=== PATIENT | female | born 1955 | race Caucasian/White ===

== ENCOUNTER 2021-09-26 15:21 | Inpatient (IN) | payer OTHER, MEDICAID ==
[~2021-09-26] VITALS: Ht 157.5 cm; Wt 61.7 kg
[2021-09-26 16:18] LABS: Basophils # (auto) 0 10 ^3/uL (0-0.2); Eosinophils # (auto) 0 10 ^3/uL (0-0.8); Lymphocytes # (auto) 0.8 10 ^3/uL (0.4-5.4); Monocytes # (auto) 0.5 10 ^3/uL (0-1.3); Red Cell Distribution Width 14.4 % (11.8-14.3)
[2021-09-26 16:19] LABS: Basophils % (auto) 0.5 % (0.0-2.0); Eosinophils % (auto) 0.7 % (0.0-7.0); Lymphocytes % (auto) 13.6 % (10.0-50.0); Mean Corpuscular Hemoglobin 32.4 pg (28.0-32.0); Mean Corpuscular Hgb Conc. 32.8 g/dL (32.0-36.0); Mean Corpuscular Volume 98.8 fL (80.0-100.0); Monocytes % (auto) 8.5 % (0.0-12.0); Neutrophils # (auto) 4.7 10 ^3/uL (1.6-8.6); Neutrophils % (auto) 76.7 % (37.0-80.0); Red Blood Cells 6.51 10^6/uL (4.0-5.20); White Blood Cell 6.1 10^3/uL (4.4-10.8)
[2021-09-26 16:21] LABS: Hematocrit 64.3 % (36.0-46.0)
[2021-09-26 16:39] LABS: Albumin 3.6 g/dL (3.4-5.0); Calcium 8.8 mg/dL (8.5-10.1); Hemoglobin 21.1 g/dL (12.2-16.2); Magnesium 2.6 mg/dL (1.6-2.6); Potassium 4.5 mmol/L (3.5-5.1)
[2021-09-26 16:47] LABS: Lactic Acid w/Reflex 2.8 mmol/L (0.4-2.0)
[2021-09-26 16:48] LABS: BUN/Creatinine Ratio 25.9; Bilirubin, Total 0.4 mg/dL (0.2-1.0); Total Protein 7.2 g/dL (6.4-8.2)
[2021-09-26] MEDS ORDERED: ALBUTEROL SULF 2.5 MG/0.5ML(0.5%) NEB SOLN NEB ONE (17:00)
[2021-09-26] MEDS ORDERED: methylPREDNISolone SOD SUCC 125 MG/2 ML VL IV ONE (17:00)
[2021-09-26] MEDS ORDERED: IPRATROPIUM BROM 0.5 MG/2.5ML INH SOL NEB ONE (17:00)
[2021-09-26] MEDS: MAGNESIUM SULFATE 1GM/100ML 100 ML IV SCH ×2 (17:17→18:11)
[2021-09-26 19:34] LABS: Basophils # (auto) 0 10 ^3/uL (0-0.2); Eosinophils # (auto) 0 10 ^3/uL (0-0.8); Eosinophils % (auto) 0.1 % (0.0-7.0); Lymphocytes # (auto) 0.5 10 ^3/uL (0.4-5.4); Red Blood Cells 6.27 10^6/uL (4.0-5.20); White Blood Cell 9.2 10^3/uL (4.4-10.8)
[2021-09-26 19:37] LABS: Basophils % (auto) 0.1 % (0.0-2.0); Hemoglobin 20.4 g/dL (12.2-16.2); Lymphocytes % (auto) 5.3 % (10.0-50.0); Mean Corpuscular Hemoglobin 32.6 pg (28.0-32.0); Mean Corpuscular Hgb Conc. 32.9 g/dL (32.0-36.0); Monocytes # (auto) 0.5 10 ^3/uL (0-1.3); Monocytes % (auto) 5.9 % (0.0-12.0); Neutrophils # (auto) 8.2 10 ^3/uL (1.6-8.6); Neutrophils % (auto) 88.6 % (37.0-80.0); Nucleated Red Blood Cells % 0.5 %; Red Cell Distribution Width 14.1 % (11.8-14.3)
[2021-09-26 19:47] LABS: Hematocrit 62.1 % (36.0-46.0)
[2021-09-26 19:55] LABS: INR 1.19 (0.9-1.15); Partial Thromboplastin Time 27.9 sec (23.6-33.0)
[2021-09-26 20:09] LABS: Urine Bacteria MOD /hpf (None Seen); Urine Blood Negative /uL (Negative); Urine Specific Gravity 1.017 (1.001-1.035); Urine WBC 16 /hpf (0 - 5)
[2021-09-26] MEDS ORDERED: IOHEXOL 350 MG/ML 100ML IJ ONE (20:28)
[2021-09-26] MEDS ORDERED: AZITHROMYCIN 250 MG TAB PO ONE (22:30)
[2021-09-26] MEDS ORDERED: SODIUM CHLORIDE 0.9% 1,000 ML IV SCH (22:30)
[2021-09-26] MEDS ORDERED: DOCUSATE SOD 100 MG CAP PO PRN (22:30)
[2021-09-26] MEDS ORDERED: ENOXAPARIN SOD 60 MG/0.6 ML SYRINGE SC ONE (22:30)
[2021-09-26] MEDS ORDERED: IPRATROPIUM BROM 0.5 MG/2.5ML INH SOL NEB PRN (22:30)
[2021-09-26] MEDS ORDERED: ONDANSETRON HCL 4 MG/2 ML VIAL IV PRN (22:30)
[2021-09-26] MEDS ORDERED: ALBUTEROL SULF 2.5 MG/0.5ML(0.5%) NEB SOLN NEB PRN (22:30)
[2021-09-26] MEDS ORDERED: ACETAMINOPHEN 325 MG TAB PO PRN (22:30)
[2021-09-26 22:54] VITALS: BP 128/70
[2021-09-26 23:00] LABS: % Iron Saturation 31.7 % (15-50)
[2021-09-26 23:02] LABS: Amphetamine Screen, Urine NEGATIVE (NEGATIVE); Barbiturate Scree,Urine NEGATIVE (NEGATIVE); Benzodiazephine Screen, Urine NEGATIVE (NEGATIVE); Cannabinoid Screen, Urine NEGATIVE (NEGATIVE); Cocaine Screen, Urine POSITIVE (NEGATIVE); Opiate Scree,Urine NEGATIVE (NEGATIVE); Phencyclidine Screen, Urine NEGATIVE (NEGATIVE)
[2021-09-26] MEDS: methylPREDNISolone SOD SUCC 125 MG/2 ML VL IV SCH (23:49)
[2021-09-27] VITALS (7 sets, daily range): BP systolic 105–132; BP diastolic 56–85
[2021-09-27] MEDS ORDERED: TIOT17SP INH (01:51)
[2021-09-27] MEDS ORDERED: BUDE1AER4 INH (01:51)
[2021-09-27] MEDS ORDERED: MONT-8 PO (01:51)
[2021-09-27] MEDS ORDERED: ALBU108A5 INH (01:51)
[2021-09-27] MEDS: methylPREDNISolone SOD SUCC 125 MG/2 ML VL IV SCH ×3 (05:55→19:17)
[2021-09-27] MEDS: IPRATROPIUM BROM 0.5 MG/2.5ML INH SOL NEB SCH ×5 (06:00→22:19)
[2021-09-27] MEDS: ALBUTEROL SULF 2.5 MG/0.5ML(0.5%) NEB SOLN NEB SCH ×5 (06:00→22:19)
[2021-09-27 06:21] LABS: Basophils # (auto) 0 10 ^3/uL (0-0.2); Eosinophils # (auto) 0 10 ^3/uL (0-0.8); Hemoglobin 18.9 g/dL (12.2-16.2); Neutrophils # (auto) 4.4 10 ^3/uL (1.6-8.6); White Blood Cell 4.8 10^3/uL (4.4-10.8)
[2021-09-27 06:25] LABS: Basophils % (auto) 0.3 % (0.0-2.0); Lymphocytes # (auto) 0.4 10 ^3/uL (0.4-5.4); Lymphocytes % (auto) 7.3 % (10.0-50.0); Mean Corpuscular Hgb Conc. 33.6 g/dL (32.0-36.0); Mean Corpuscular Volume 98.1 fL (80.0-100.0); Monocytes # (auto) 0 10 ^3/uL (0-1.3); Monocytes % (auto) 0.9 % (0.0-12.0); Neutrophils % (auto) 91.5 % (37.0-80.0); Nucleated Red Blood Cells % 0.2 %; Red Blood Cells 5.72 10^6/uL (4.0-5.20); Red Cell Distribution Width 14.1 % (11.8-14.3)
[2021-09-27 06:32] LABS: Hematocrit 56.2 % (36.0-46.0)
[2021-09-27 06:33] LABS: Potassium 4.8 mmol/L (3.5-5.1)
[2021-09-27 06:45] LABS: Albumin 3.1 g/dL (3.4-5.0); BUN/Creatinine Ratio 22.1; Bilirubin, Total 0.2 mg/dL (0.2-1.0); Calcium 8.3 mg/dL (8.5-10.1); Total Protein 6.2 g/dL (6.4-8.2)
[2021-09-27] MEDS ORDERED: FAMOTIDINE 20 MG TAB PO SCH (10:00)
[2021-09-27] MEDS: AZITHROMYCIN 250 MG TAB PO SCH (10:43)
[2021-09-27] MEDS: ENOXAPARIN SOD 40 MG/0.4 ML SYRINGE SC SCH (10:47)
[2021-09-27] MEDS ORDERED: ASPirin 81 mg TAB PO ONE (15:00)
[2021-09-28] VITALS (10 sets, daily range): BP systolic 97–147; BP diastolic 52–85
[2021-09-28] MEDS: methylPREDNISolone SOD SUCC 125 MG/2 ML VL IV SCH ×2 (00:52→05:33)
[2021-09-28] MEDS ORDERED: hydrOXYzine HCL 10 MG TAB PO ONE (03:45)
[2021-09-28 06:13] LABS: Basophils # (auto) 0 10 ^3/uL (0-0.2); Eosinophils # (auto) 0 10 ^3/uL (0-0.8); Monocytes # (auto) 0.3 10 ^3/uL (0-1.3); Monocytes % (auto) 4.6 % (0.0-12.0); Neutrophils # (auto) 5.7 10 ^3/uL (1.6-8.6); White Blood Cell 6.4 10^3/uL (4.4-10.8)
[2021-09-28 06:15] LABS: Basophils % (auto) 0.3 % (0.0-2.0); Hemoglobin 18.7 g/dL (12.2-16.2); Lymphocytes # (auto) 0.4 10 ^3/uL (0.4-5.4); Lymphocytes % (auto) 5.7 % (10.0-50.0); Mean Corpuscular Hgb Conc. 33.4 g/dL (32.0-36.0); Mean Corpuscular Volume 98.6 fL (80.0-100.0); Neutrophils % (auto) 89.4 % (37.0-80.0); Nucleated Red Blood Cells % 0.3 %; Red Blood Cells 5.68 10^6/uL (4.0-5.20); Red Cell Distribution Width 14.1 % (11.8-14.3)
[2021-09-28] MEDS: IPRATROPIUM BROM 0.5 MG/2.5ML INH SOL NEB SCH ×3 (06:32→18:21)
[2021-09-28] MEDS: ALBUTEROL SULF 2.5 MG/0.5ML(0.5%) NEB SOLN NEB SCH ×3 (06:32→18:21)
[2021-09-28 06:37] LABS: Calcium 9.1 mg/dL (8.5-10.1); Magnesium 2.7 mg/dL (1.6-2.6); Phosphorus 2.8 mg/dL (2.5-4.90); Potassium 5.2 mmol/L (3.5-5.1)
[2021-09-28] MEDS: AZITHROMYCIN 250 MG TAB PO SCH (09:36)
[2021-09-28] MEDS: ENOXAPARIN SOD 40 MG/0.4 ML SYRINGE SC SCH (09:36)
[2021-09-28] MEDS: ASPirin 81 mg TAB PO SCH (09:37)
[2021-09-28] MEDS ORDERED: GADOTERATE MEG 10 MMOL/20ml INJ (0.5MMOL/ml) IV ONE (09:49)
[2021-09-28] MEDS ORDERED: predniSONE 20 MG TAB PO ONE (13:30)
[2021-09-28] MEDS ORDERED: FUROSEMIDE 20 MG/2 ML VIAL IV ONE (13:30)
[2021-09-28] MEDS ORDERED: IPRATROPIUM BROM 0.5 MG/2.5ML INH SOL NEB SCH (14:00)
[2021-09-28] MEDS: DOXYCYCLINE 100 MG TAB/CAP PO SCH (21:06)
[2021-09-29] MEDS: IPRATROPIUM BROM 0.5 MG/2.5ML INH SOL NEB SCH ×3 (00:10→10:37)
[2021-09-29] MEDS: ALBUTEROL SULF 2.5 MG/0.5ML(0.5%) NEB SOLN NEB SCH ×3 (00:10→10:37)
[2021-09-29 04:35] LABS: Basophils # (auto) 0 10 ^3/uL (0-0.2); Basophils % (auto) 0.3 % (0.0-2.0); Eosinophils # (auto) 0 10 ^3/uL (0-0.8); Neutrophils # (auto) 6.1 10 ^3/uL (1.6-8.6); Nucleated Red Blood Cells % 0.2 %
[2021-09-29 04:38] LABS: Hemoglobin 18.8 g/dL (12.2-16.2); Lymphocytes # (auto) 0.8 10 ^3/uL (0.4-5.4); Mean Corpuscular Hemoglobin 32.6 pg (28.0-32.0); Mean Corpuscular Hgb Conc. 33.4 g/dL (32.0-36.0); Mean Corpuscular Volume 97.9 fL (80.0-100.0); Monocytes % (auto) 12.7 % (0.0-12.0); Red Blood Cells 5.77 10^6/uL (4.0-5.20); Red Cell Distribution Width 14.2 % (11.8-14.3); White Blood Cell 7.9 10^3/uL (4.4-10.8)
[2021-09-29 04:42] LABS: Hematocrit 56.5 % (36.0-46.0)
[2021-09-29 04:52] LABS: Calcium 9.2 mg/dL (8.5-10.1); Potassium 4.2 mmol/L (3.5-5.1)
[2021-09-29 04:56] LABS: BUN/Creatinine Ratio 43.1
[2021-09-29 05:00] VITALS: BP 113/68
[2021-09-29 08:41] VITALS: BP 118/74
[2021-09-29] MEDS: DOXYCYCLINE 100 MG TAB/CAP PO SCH (08:58)
[2021-09-29] MEDS: ASPirin 81 mg TAB PO SCH (08:59)
[2021-09-29] MEDS: ENOXAPARIN SOD 40 MG/0.4 ML SYRINGE SC SCH (09:01)
[2021-09-29] MEDS ORDERED: predniSONE 20 MG TAB PO SCH (10:00)
[2021-09-29] MEDS ORDERED: FUROSEMIDE 20 MG/2 ML VIAL IV SCH (10:00)
[2021-09-29 12:43] VITALS: BP 101/57
[2021-09-29] MEDS ORDERED: ASPI1CHW15 PO (13:24)
[2021-09-29] MEDS ORDERED: DOX100T PO (13:24)
[2021-09-29] MEDS ORDERED: PRED20TA2 PO (13:25)
[2021-09-29 14:10] VITALS: BP 118/74
== END 2021-09-29 16:00 | disposition home health service (06) | DRG 189 ==
LOC: ER 15:21 → EDBD 15:21 → TELE 22:27 → TELE-WESTW 23:51
PROVIDERS: ADMIT Internal Medicine; ATTEND Internal Medicine
DX: J96.22 Acute and chronic respiratory failure with hypercapnia (principal); J44.1 Chronic obstructive pulmonary disease with (acute) exacerbation; J96.21 Acute and chronic respiratory failure with hypoxia; D75.1 Secondary polycythemia; D17.9 Benign lipomatous neoplasm, unspecified; E27.9 Disorder of adrenal gland, unspecified; F14.10 Cocaine abuse, uncomplicated; F17.210 Nicotine dependence, cigarettes, uncomplicated; R73.03 Prediabetes; Z20.822 Contact with and (suspected) exposure to COVID-19; E07.9 Disorder of thyroid, unspecified; Z82.5 Family history of asthma and other chronic lower respiratory diseases; Z99.81 Dependence on supplemental oxygen
CPT/HCPCS: 36415; 36600; 71045; 71275; 74183; 80048; 80053; 80307; 81001; 82088; 82533; 82668; 82805; 82962; 83036; 83540; 83550; 83605; 83735; 83880; 84100; 84244; 84439; 84443; 84484; 85025; 85379; 85610; 85730; 86850; 86900; 86901; 93005; 93306; 93886; 94640; 96365; 96375; 99291; G0378

== ENCOUNTER 2024-07-20 13:55 | Inpatient (IN) | payer OTHER, MEDICAID ==
[~2024-07-20] VITALS: Ht 157.5 cm; Wt 64.7 kg
[2024-07-20] VITALS (8 sets, daily range): BP systolic 109–134; BP diastolic 65–77; PULSE 90–126; RESP 13–22; TEMP 98; O2SAT 92–100
[~2024-07-20 13:55] MED LIST: ALBU108A5 INH; ASPI-736 PO; BUDE1AER4 INH; DOX100T PO; MONT-8 PO; PRED20TA2 PO; TIOT17SP INH
--- NOTE | 2024-07-20 14:06 | ED.PDOC ---
SOB-HPI HPI Comments HPI: 69-year-old female brought in by ambulance from home for acute respiratory distress x1 day. Per EMS, patient's O2 sats at home were in the 60s. History of COPD and lung cancer. Patient was given two breathing treatments prior to arrival and placed on a CPAP. Patient arrived on a CPAP and was immediately evaluated and placed on a BiPAP here in the ED. patient is started feeling improvement. VITALS: T: HR:148 RR: O2: BP: SOCIAL HX: DENIES TOBACCO USAGE, ETOH CONSUMPTION, OR ILLICIT DRUG USE SHX: DENIES ALL PMHX: LUNG CANCER, COPD ALLERGIES: NKA HPI: Poor Historian. REVIEW OF SYSTEMS: CONSTITUTIONAL: Denies acute: fever, diaphoresis, chills, HEAD: Denies acute: headache, photophobia Eyes: Denies acute: Double vision, vision loss, eye pain, eye discharge. EARS: Denies acute: tinnitus, hearing loss, ear discharge, ear pain, THROAT: Denies acute: sore throat, swelling, difficulty swallowing , pain with swallowing, change in voice. NECK: Denies acute: neck pain, neck swelling, stiff neck. HEART: Denies acute : chest pain, palpitations, LUNGS: Denies acute: wheezing, cough, hemoptysis ABDOMEN: Denies acute: abdominal pain, Nausea, Vomiting, diarrhea, melena , hematemesis, hematochezia SKIN: Denies acute: rash, redness, lesions, itchiness. EXTREMITIES: Denies acute: calf pain, numbness, tingling, weakness, denies pain in extremity. Denies acute: Low back pain. Neuro: Denies acute: focal neurological deficit, motor or sensory focal neurological deficit, tremors, seizure like activity, confusion, dizziness, change in mental status, loss of bowel or bladder function, cauda equina like symptoms. : Denies acute: dysuria, hematuria, flank pain, increase in urinary frequency. PSYCH: Denies acute: hallucination, suicidal ideation, homicidal ideation. FEMALE: Denies acute: abnormal vaginal bleeding, foul odor, unusual discharge. PHYSICAL EXAM: General: Mild to moderate acute distress, awake and alert. There is a foul odor of urine noted Head: normocephalic, atraumatic. Neck: supple, trachea is midline, no swelling. Throat: Normal phonation. Eyes:, no erythema, no purulent discharge, no proptosis, no icterus. Heart: regular tachycardic, no significant murmur appreciated. Lungs: [id number]-[id number] respiratory distress, Right-sided wheezing, no rhonchi, no crackles. No stridors Decreased breath sounds on the left side. Abdomen: non tender to palpation, non distended, soft, no guarding, no rebound, + bowel sounds. Noted rectal stool bag. Neuro: Awake, Alert, oriented to name, self, situation, follows commands GCS=15. Speech is normal. Skin: no petechia, no purpura, no cyanosis, non-pale, not jaundice. Lower extremities: --no - Pitting edema no deformity, no focal swelling, no calf TTP. Makes eye contact. moves all four extremities. Face: no apparent facial droop. Time Seen by MD: 14:00 Reviewed notes: Nurses Notes, Archeology Professor Notes, Medications, Allergies Information Source: Patient, Emergency Med Personnel Mode of Arrival: EMS Severity: Moderate Timing: Hours Duration: Since onset Context: At Rest PE Risk Factors: None History of: None Prehospital treatment: Other (2 ABUTEROL, ATROVAN) Associated Signs and Symptoms: Wheeze, Cough Was a procedure done? Was a procedure done?: No X-Ray, Labs, Meds, VS Vital Signs Date Time Temp Pulse Resp B/P (MAP) Pulse Ox O2 Delivery O2 Flow Rate FiO2 07/20/24 16:45 126 99 Facial BiPAP Mask 30 07/20/24 16:00 118 07/20/24 15:32 98.0 120 22 124/74 100 100 98.0 07/20/24 15:04 126 13 100 Bi-Pap+ 100 100 07/20/24 14:36 98.0 142 24 124/74 (91) 93 07/20/24 14:14 94 Facial BiPAP Mask 100 07/20/24 14:00 126 13 118/86 (97) 100 Lab Test 07/20/24 16:55 07/20/24 16:38 07/20/24 15:28 07/20/24 15:23 Range/Units Lactic Acid Level Pending Troponin I High Sensitivity Pending 12 </=34 ng/L Blood Gas Specimen Type Arterial Blood Gas Sample Site Right radial Blood Gas Patient Temperature 37.0 Arterial Blood Date Drawn [id number] Arterial Blood pH 7.330 L 7.350-7.450 Arterial Blood Partial Pressure CO2 59.5 H 32.0-45.0 mmHg Arterial Blood Partial Pressure O2 > 529.9 *H 83.0-108.0 mmHg Arterial Blood HCO3 30.7 H 21.0-28.0 mmol/L Arterial Blood Oxygen Saturation 99.8 H 94.0-98.0 % Arterial Blood Base Excess 2.7 -2.0-3.0 mmol/L Arterial Blood Oxyhemoglobin 98.5 H 94.0-98.0 % Arterial Blood Carboxyhemoglobin 0.5 0.5-1.5 % Arterial Blood Methemoglobin 0.8 0.0-1.5 % Ga Test Modified Blood Gas Total Hemoglobin 17.50 H 12.0-16.0 g/dL Blood Gas Set Respiration Rate 16.0 Blood Gas Modality Mask - bipap Blood Gas Spontaneous Rate 20 FiO2 % 100.0 Blood Gas EPAP 5 Blood Gas IPAP 12 Blood Gas Critical Value Read Back Yes Blood Gas Notified Whom Blood Gas Notified Time [id number] 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 Influenza Type A Antigen Negative Negative Influenza Type B Antigen Negative Negative Test 07/20/24 14:17 Range/Units White Blood Count 8.6 4.4-10.8 10^3/uL Red Blood Count 5.49 H 4.0-5.20 10^6/uL Hemoglobin 17.0 H 12.2-16.2 g/dL Hematocrit 51.7 H 36.0-46.0 % Mean Corpuscular Volume 94.3 80.0-100.0 fL Mean Corpuscular Hemoglobin 31.0 28.0-32.0 pg Mean Corpuscular Hemoglobin Concent 32.9 32.0-36.0 g/dL Red Cell Distribution Width 13.9 11.8-14.3 % Platelet Count 307 140-450 10^3/uL Mean Platelet Volume 8.9 6.9-10.8 fL Neutrophils (%) (Auto) 68.0 37.0-80.0 % Lymphocytes (%) (Auto) 20.6 10.0-50.0 % Monocytes (%) (Auto) 10.6 0.0-12.0 % Eosinophils (%) (Auto) 0.6 0.0-7.0 % Basophils (%) (Auto) 0.2 0.0-2.0 % Neutrophils # (Auto) 5.8 1.6-8.6 10 ^3/uL Lymphocytes # (Auto) 1.8 0.4-5.4 10 ^3/uL Monocytes # (Auto) 0.9 0-1.3 10 ^3/uL Eosinophils # (Auto) 0.1 0-0.8 10 ^3/uL Basophils # (Auto) 0 0-0.2 10 ^3/uL Nucleated Red Blood Cells 0.2 % D-Dimer, Quantitative 1.78 H 0.0-0.49 mg/L FEU Sodium Level 143 136-145 mmol/L Potassium Level 4.5 3.5-5.1 mmol/L Chloride Level 104 98-107 mmol/L Carbon Dioxide Level 30 20-31 mmol/L Anion Gap 9 5-15 Blood Urea Nitrogen 23 9-23 mg/dL Creatinine 0.98 0.550-1.02 mg/dL Glomerular Filtration Rate Calc 63 >90 mL/min BUN/Creatinine Ratio 23.5 H 10.0-20.0 Serum Glucose 230 H 74-106 mg/dL Lactic Acid Level 3.4 *H 0.4-2.0 mmol/L Calcium Level 9.2 8.7-10.4 mg/dL Magnesium Level 2.0 1.6-2.6 mg/dL Total Bilirubin 0.2 0.2-1.0 mg/dL Aspartate Amino Transferase (AST) 20 13-40 U/L Alanine Aminotransferase (ALT) 19 7-40 U/L Alkaline Phosphatase 75 46-116 U/L Troponin I High Sensitivity 8 </=34 ng/L B-Type Natriuretic Peptide 61.38 0-100 pg/mL Total Protein 6.4 5.7-8.2 g/dL Albumin 4.0 3.2-4.8 g/dL Current Medications Medications (Trade) Dose Ordered Sig/Timothy Route Start Time Stop Time Status Last Admin Albuterol (Ventolin Medneb) 2.5 mg ONCE ONCE NEB 07/20/24 14:00 07/20/24 14:01 DC 07/20/24 14:41 Ipratropium Vincent (Atrovent Medneb) 1 mg ONCE ONCE NEB 07/20/24 14:00 07/20/24 14:01 DC 07/20/24 14:41 Methylprednisolone Sodium Succinate (Solu Medrol) 125 mg ONCE ONCE IV 07/20/24 14:00 07/20/24 14:01 DC 07/20/24 14:12 Piperacillin Sod/ Tazobactam Sod 100 ml @ 100 mls/hr ONCE ONCE IV 07/20/24 14:30 07/20/24 15:29 DC 07/20/24 14:43 [place] [id number] Ph: [phone] DIAGNOSTIC IMAGING Diagnostic Imaging Report : [id number] Signed PATIENT: ROSA MAIERCCT: [id number] UNIT: [id number] : 1955 LOC: ER ROOM / BED: / AGE / SEX: 69 / F ADM STATUS: REG ER SERVICE 1408 ORDERING PHYSICIAN: MAYELIN TORRES DO PROCEDURE(s): CXRP - CHEST PORTABLE REASON: resp distress ORDER NUMBER(s): [id number], ACCESSION NUMBER(s): [id number] EXAM: XY CHEST PORTABLE TECHNIQUE: Single frontal chest radiograph CLINICAL HISTORY: resp distress COMPARISON: CHEST PORTABLE on DOS: 09/29/21, CHEST PORTABLE on DOS: 09/26/21 Findings/Impression: Frontal chest radiograph demonstrates no acute osseous or superficial soft tissue abnormalities. The trachea is midline. The cardiac silhouette and mediastinum are within normal limits. No pneumothorax, pleural effusions, or consolidations. ATED BY: MYRA PERALES DO DICTATED DATE/TIME: 07/20/24 142 SIGNED BY: MYRA PERALES DO SIGNED DATE/TIME: 07/20/24 1426 CC: Time of 1ST Reevaluation: 14:30 Reevaluation 1ST: Unchanged Time of 2ND Reevaluation: 15:53 Reevaluation 2ND: Improved Patient Education/Counseling: Diagnosis, Treatment Family Education/Counseling: No Family Present Comments 69-year-old female brought in by ambulance from home for acute respiratory distress x1 day. Patient was found with the above mentioned diagnosis. the following medications were ordered: LABS, CXR the following tests were ordered:ZOSYN, ALBUTEROL, IB, DEPO-MEDRO Patient ED course and VS have been stabilized. Patient has been reassessed in the ED and remained in a stable condition. Pertinent incidental findings were discussed with the patient and/or family. Patient/family voices understanding and is agreeable with plan. Patient has been observed in the ED adequate length of time to insure improvement/stability. Escalation of care considered: Consideration of escalation to observation or admission Patient was ADMITTED to the medicine team for further evaluation and treatment of their presentation. Patient was discharged. All the reports of any imaging studies that were ordered by myself were reviewed by myself. Departure 1 Departure Time of Disposition: 14:25 Impression: Primary Impression: Acute respiratory distress Additional Impression: COPD exacerbation Disposition: ADMITTED INPATIENT Admit to: Tele Condition: Guarded Additional Instructions: [place] [id number] Ph: [phone] DIAGNOSTIC IMAGING Diagnostic Imaging Report : [id number] Signed PATIENT: ROSA MAIER ACCT: [id number] UNIT: [id number] : 1955 LOC: ER ROOM / BED: / AGE / SEX: 69 / F ADM STATUS: REG ER SERVICE 1408 ORDERING PHYSICIAN: MAYELIN TORRES DO PROCEDURE(s): CXRP - CHEST PORTABLE REASON: resp distress ORDER NUMBER(s): [id number], ACCESSION NUMBER(s): [id number] EXAM: XY CHEST PORTABLE TECHNIQUE: Single frontal chest radiograph CLINICAL HISTORY: resp distress COMPARISON: CHEST PORTABLE on DOS: 09/29/21, CHEST PORTABLE on DOS: 09/26/21 Findings/Impression: Frontal chest radiograph demonstrates no acute osseous or superficial soft tissue abnormalities. The trachea is midline. The cardiac silhouette and mediastinum are within normal limits. No pneumothorax, pleural effusions, or consolidations. ATED BY: MYRA PERALES DO DICTATED DATE/TIME: 07/20/241425 SIGNED BY: MYRA PERALES DO SIGNED DATE/TIME: 07/20/241425 CC: Discharged With: Self Critical Care Note Critical Care Time?: No I personally scribed for MAYELIN TORRES DO ([email or web address]) on 07/20/24 at 14:06. Electronically submitted by Clara Ochoa ([email or web address]). I personally scribed for MAYELIN TORRES DO ([email or web address]) on 07/20/24 at 14:32. Elec tronically submitted by Clara Ochoa ([email or web address]). I personally scribed for MAYELIN TORRES DO ([email or web address]) on 07/20/24 at 17:23. Electronically submitted by Clara Ochoa ([email or web address]). MAYELIN TORRES DO Jul 20, 2024 14:06
[2024-07-20] MEDS: methylPREDNISolone SOD SUCC 125 MG/2 ML VL IV ONE (14:12)
--- NOTE | 2024-07-20 14:28 | DVH ---
EXAM: XY CHEST PORTABLE TECHNIQUE: Single frontal chest radiograph CLINICAL HISTORY: resp distress COMPARISON: CHEST PORTABLE on DOS: 09/29/21, CHEST PORTABLE on DOS: 09/26/21 Findings/Impression: Frontal chest radiograph demonstrates no acute osseous or superficial soft tissue abnormalities. The trachea is midline. The cardiac silhouette and mediastinum are within normal limits. No pneumothorax, pleural effusions, or consolidations.
[2024-07-20 14:38] LABS: Basophils # (auto) 0 10 ^3/uL (0-0.2); Basophils % (auto) 0.2 % (0.0-2.0); Eosinophils # (auto) 0.1 10 ^3/uL (0-0.8); Eosinophils % (auto) 0.6 % (0.0-7.0); Hematocrit 51.7 % (36.0-46.0); Lymphocytes # (auto) 1.8 10 ^3/uL (0.4-5.4); Lymphocytes % (auto) 20.6 % (10.0-50.0); Mean Corpuscular Hgb Conc. 32.9 g/dL (32.0-36.0); Mean Corpuscular Volume 94.3 fL (80.0-100.0); Monocytes # (auto) 0.9 10 ^3/uL (0-1.3); Monocytes % (auto) 10.6 % (0.0-12.0); Neutrophils # (auto) 5.8 10 ^3/uL (1.6-8.6); Nucleated Red Blood Cells % 0.2 %; Platelet Count (auto) 307 10^3/uL (140-450); Red Blood Cells 5.49 10^6/uL (4.0-5.20); Red Cell Distribution Width 13.9 % (11.8-14.3); White Blood Cell 8.6 10^3/uL (4.4-10.8)
[2024-07-20] MEDS: ALBUTEROL SULF 2.5 MG/0.5ML(0.5%) NEB SOLN NEB ONE (14:41)
[2024-07-20] MEDS: IPRATROPIUM BROM 0.5 MG/2.5ML INH SOL NEB ONE (14:41)
[2024-07-20] MEDS: PIPERACILLIN-TAZOB 3.375GM 100 ML IV ONE (14:43)
[2024-07-20 14:52] LABS: Alanine Aminotransferase 19 U/L (7-40); Alkaline Phosphatase 75 U/L (46-116); Anion Gap 9 (5-15); Aspartate Aminotransferase 20 U/L (13-40); BUN/Creatinine Ratio 23.5 (10.0-20.0); Calcium 9.2 mg/dL (8.7-10.4); Carbon Dioxide 30 mmol/L (20-31); Chloride 104 mmol/L (98-107); Potassium 4.5 mmol/L (3.5-5.1); Sodium 143 mmol/L (136-145)
[2024-07-20 14:53] LABS: Bilirubin, Total 0.2 mg/dL (0.2-1.0); Blood Urea Nitrogen 23 mg/dL (9-23); Glucose 230 mg/dL (74-106); Total Protein 6.4 g/dL (5.7-8.2)
[2024-07-20 14:56] LABS: Lactic Acid w/Reflex 3.4 mmol/L (0.4-2.0)
[2024-07-20 16:28] LABS: Rapid Influenza A Negative (Negative); Rapid Influenza B Negative (Negative)
[2024-07-20 16:43] LABS: Base Excess 2.7 mmol/L (-2.0-3.0)
[2024-07-20 18:20] LABS: Urine Bacteria MANY /hpf (None Seen); Urine Blood TRACE /uL (Negative); Urine Clarity Turbid (Clear); Urine Color Yellow (Yellow); Urine Hyaline Cast MANY /lpf (0 - 2); Urine Mucus FEW (None Seen); Urine Protein, UAD 2+ (Negative); Urine Specific Gravity 1.022 (1.001-1.035); Urine Squamous Epithelial Cell FEW /hpf (<5); Urine Urobilinogen 3 mg/dL (Negative); Urine WBC 101 /hpf (0 - 5)
[2024-07-20] MEDS ORDERED: ACETAMINOPHEN 325 MG TAB PO PRN (19:45)
[2024-07-20] MEDS ORDERED: ONDANSETRON HCL 4 MG/2 ML VIAL IV PRN (19:45)
[2024-07-20] MEDS ORDERED: DOCUSATE SOD 100 MG CAP PO PRN (19:45)
[2024-07-20] MEDS ORDERED: HYDROcodone-ACET 5/325MG TAB PO PRN (19:45)
[2024-07-20] MEDS: IPRATROPIUM BROM 0.5 MG/2.5ML INH SOL NEB PRN (22:04)
[2024-07-20] MEDS: FAMOTIDINE (10MG/ML) 2ML VL IV SCH (22:21)
[2024-07-20] MEDS: SODIUM CHLOR 0.9% PF (SALINE LOCK) 10ML VIAL/SYR IV SCH (22:21)
[2024-07-20] MEDS: methylPREDNISolone SOD SUCC 40 MG/ML VL IV SCH (22:21)
--- NOTE | 2024-07-20 22:28 | DVHHP2 ---
History of Present Illness Reason for Visit: COPD with acute exacerbation History of Present Illness The patient is a 69-year-old female with past medical history of lung cancer and COPD who presented to [facility] ED with complaint of shortness of breaths. Patient reports symptoms progressively get worse with increased work of breathing, hypoxic, O2 saturation in the 60s on room air, getting worse that EMS were called. When EMS arrived on the scene, patient was placed on CPAP EN route to our facility ED. patient was seen and evaluated in the ED, laboratory data sh ows WBC 8.6, hemoglobin 17.0, hematocrit 51.7, platelets 307, sodium 143, potassium 4.5, BUN 23, creatinine 0.68, GFR 63, glucose 230 trending down to 164, hemoglobin A1c 6.1, lactic acid 3.4 trending down to 1.3, BNP 61.38, D- dimer 1.78, troponin 12, urinalysis positive for urinary tract infection. Chest x-ray show no pneumothorax, pleural effusions or consolidations. Patient was started on IV antibiotic regimen Rocephin, please see medication orders section in the computer. On my assessment, patient denies chest pain, no headache, no dizziness, currently on BiPAP, no diarrhea, no nausea, no vomiting, no fever, no chills. Patient was admitted for further evaluation and medical management. Past Medical History Lung cancer, COPD Past Surgical History Denies all surgeries Family History Reviewed, noncontributory to the management of this case. Past Social History The patient lives at home, denies smoking, alcohol or illicit drugs abuse. Review of Systems Constitutional: Yes: Weakness; No: Fever, Chills, Sweats, Malaise, Other Eyes: No: Pain, Vision change, Conjunctivae inflammation, Eyelid inflammation, Other, Redness ENT: No: Ear pain, Ear discharge, Nose pain, Nose discharge, Nose congestion, Mouth pain, Mouth swelling, Throat pain, Throat swelling, Other Respiratory: Shortness of breath, SOB with excertion, Other (SOB at rest); No: Cough, Dry, Wheezing, Hemoptysis, Pleuritic Pain, Sputum, Wheezing Cardiovascular: No: Chest Pain, Palpitations, Orthopnea, Paroxysmal Noc. Dyspnea, Edema, Lt Headedness, Other Gastrointestinal: No: Nausea, Vomiting, Abdominal Pain, Diarrhea, Constipation, Melena, Hematochezia, Other Genitourinary: No Dysuria, No Frequency, No Incontinence, No Hematuria, No Retention, No Other Musculoskeletal: No: other, neck pain, shoulder pain, arm pain, back pain, hand pain, leg pain, foot pain Skin: No: Rash, Lesions, Jaundice, Bruising, Other Neurological: No: Weakness, Numbness, Incoordination, Change in speech, Confusion, Seizures, Other Allergies: Coded Allergies: NO KNOWN ALLERGIES (Unverified , 09/26/21) Medications Current Medications Medications Dose Ordered Sig/Timothy Route Start Time Stop Time Status Last Admin Dose Admin Aspirin 81 mg DAILY PO 07/21/24 10:00 Ipratropium Erwin 0.5 mg Q4HPRN PRN NEB 07/20/24 19:45 07/20/24 22:04 0.5 MG Levalbuterol HCl 0.625 mg Q6HR NEB 07/21/24 00:00 Methylprednisolone Sodium Succinate 40 mg Q8HR IV 07/20/24 22:00 07/20/24 22:21 40 MG Famotidine 20 mg Q12HR IV 07/20/24 22:00 07/20/24 22:21 20 MG Ceftriaxone Sodium 50 ml @ 100 mls/hr DAILY@09 IV 07/21/24 09:00 Sodium Chloride 10 ml Q8HR IV 07/20/24 22:00 07/20/24 22:21 10 ML Acetaminophen/ Hydrocodone Bitart 1 tab Q4HP PRN PO 07/20/24 19:45 Ondansetron HCl 4 mg Q4HP PRN IV 07/20/24 19:45 Docusate Sodium 100 mg BIDPRN PRN PO 07/20/24 19:45 Acetaminophen 650 mg Q6HP PRN PO 07/20/24 19:45 Exam Vital Signs Vital Signs Date Time Temp Pulse Resp B/P (MAP) Pulse Ox O2 Delivery O2 Flow Rate FiO2 07/20/24 21:50 95 134/77 95 Facial BiPAP Mask 50 07/20/24 18:30 13 07/20/24 15:32 98.0 98.0 General Appearance: Alert, Oriented X3, Cooperative, No acute distress HEENT: Atraumatic, PERRLA, EOMI, Mucous membr. moist/pink Respiratory: Normal air movement, Other (Diminished breath sounds) Cardiovascular: Regular rate, Normal S1, Normal S2, No murmurs Abdominal: Normal bowel sounds, Soft, No tenderness, No hepatospenomegaly, No masses Extremities: No clubbing, No cyanosis, No edema, Normal pulses, No tenderness/swelling Skin: No rashes, No breakdown, No significant lesion Neuro: Normal speech, Normal tone, Sensation intact, Cranial nerves 3-12 NL, Reflexes 2+, Other (Generalized weakness) Psych/Mental Status: Mental status NL, Mood NL Labs/Xrays Labs Test 07/20/24 17:11 07/20/24 16:55 07/20/24 16:38 07/20/24 15:23 Range/Units Urine Color Yellow Yellow Urine Clarity Turbid H Clear Urine pH 6.0 5.0-9.0 Urine Specific [place] 1.022 1.001-1.035 Urine Protein 2+ H Negative Urine Ketones Trace Negative Urine Blood Trace H Negative /uL Urine Nitrite Negative Negative Urine Bilirubin Negative Negative Urine Urobilinogen 3 H Negative mg/dL Urine Leukocyte Esterase 3+ Negative /uL Urine RBC 6 0 - 4 /hpf Urine WBC 101 0 - 5 /hpf Urine Squamous Epithelial Cells Few <5 /hpf Urine Bacteria Many H None Seen /hpf Urine Hyaline Casts Many 0 - 2 /lpf Urine Mucus Few None Seen Urine Glucose Normal Normal mg/dL Lactic Acid Level 1.3 0.4-2.0 mmol/L Troponin I High Sensitivity 19 </=34 ng/L Blood Gas Specimen Type Arterial Blood Gas Sample Site Right radial Blood Gas Patient Temperature 37.0 Arterial Blood Date Drawn [id number] Arterial Blood pH 7.330 L 7.350-7.450 Arterial Blood Partial Pressure CO2 59.5 H 32.0-45.0 mmHg Arterial Blood Partial Pressure O2 > 529.9 *H 83.0-108.0 mmHg Arterial Blood HCO3 30.7 H 21.0-28.0 mmol/L Arterial Blood Oxygen Saturation 99.8 H 94.0-98.0 % Arterial Blood Base Excess 2.7 -2.0-3.0 mmol/L Arterial Blood Oxyhemoglobin 98.5 H 94.0-98.0 % Arterial Blood Carboxyhemoglobin 0.5 0.5-1.5 % Arterial Blood Methemoglobin 0.8 0.0-1.5 % Ga Test Modified Blood Gas Total Hemoglobin 17.50 H 12.0-16.0 g/dL Blood Gas Set Respiration Rate 16.0 Blood Gas Modality Mask - bipap Blood Gas Spontaneous Rate 20 FiO2 % 100.0 Blood Gas EPAP 5 Blood Gas IPAP 12 Blood Gas Critical Value Read Back Yes Blood Gas Notified Whom Blood Gas Notified Time [id number] 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 Influenza Type A Antigen Negative Negative Influenza Type B Antigen Negative Negative Test 07/20/24 14:17 Range/Units White Blood Count 8.6 4.4-10.8 10^3/uL Red Blood Count 5.49 H 4.0-5.20 10^6/uL Hemoglobin 17.0 H 12.2-16.2 g/dL Hematocrit 51.7 H 36.0-46.0 % Mean Corpuscular Volume 94.3 80.0-100.0 fL Mean Corpuscular Hemoglobin 31.0 28.0-32.0 pg Mean Corpuscular Hemoglobin Concent 32.9 32.0-36.0 g/dL Red Cell Distribution Width 13.9 11.8-14.3 % Platelet Count 307 140-450 10^3/uL Mean Platelet Volume 8.9 6.9-10.8 fL Neutrophils (%) (Auto) 68.0 37.0-80.0 % Lymphocytes (%) (Auto) 20.6 10.0-50.0 % Monocytes (%) (Auto) 10.6 0.0-12.0 % Eosinophils (%) (Auto) 0.6 0.0-7.0 % Basophils (%) (Auto) 0.2 0.0-2.0 % Neutrophils # (Auto) 5.8 1.6-8.6 10 ^3/uL Lymphocytes # (Auto) 1.8 0.4-5.4 10 ^3/uL Monocytes # (Auto) 0.9 0-1.3 10 ^3/uL Eosinophils # (Auto) 0.1 0-0.8 10 ^3/uL Basophils # (Auto) 0 0-0.2 10 ^3/uL Nucleated Red Blood Cells 0.2 % D-Dimer, Quantitative 1.78 H 0.0-0.49 mg/L FEU Sodium Level 143 136-145 mmol/L Potassium Level 4.5 3.5-5.1 mmol/L Chloride Level 104 98-107 mmol/L Carbon Dioxide Level 30 20-31 mmol/L Anion Gap 9 5-15 Blood Urea Nitrogen 23 9-23 mg/dL Creatinine 0.98 0.550-1.02 mg/dL Glomerular Filtration Rate Calc 63 >90 mL/min BUN/Creatinine Ratio 23.5 H 10.0-20.0 Serum Glucose 230 H 74-106 mg/dL Hemoglobin A1c 6.1 H <5.7 % A1C Calcium Level 9.2 8.7-10.4 mg/dL Magnesium Level 2.0 1.6-2.6 mg/dL Total Bilirubin 0.2 0.2-1.0 mg/dL Aspartate Amino Transferase (AST) 20 13-40 U/L Alanine Aminotransferase (ALT) 19 7-40 U/L Alkaline Phosphatase 75 46-116 U/L B-Type Natriuretic Peptide 61.38 0-100 pg/mL Total Protein 6.4 5.7-8.2 g/dL Albumin 4.0 3.2-4.8 g/dL PATIENT: [facility]IER [facility]: [id number] UNIT: [id number] : 1955 LOC: ER ROOM / BED: / AGE / SEX: 69 / F ADM STATUS: REG ER SERVICE 1408 ORDERING PHYSICIAN: MAYEILN TORRES DO PROCEDURE(s): CXRP - CHEST PORTABLE REASON: resp distress ORDER NUMBER(s): [id number], ACCESSION NUMBER(s): [id number] EXAM: XY CHEST PORTABLE TECHNIQUE: Single frontal chest radiograph CLINICAL HISTORY: resp distress COMPARISON: CHEST PORTABLE on DOS: 09/29/21, CHEST PORTABLE on DOS: 09/26/21 Findings/Impression: Frontal chest radiograph demonstrates no acute osseous or superficial soft tissue abnormalities. The trachea is midline. The cardiac silhouette and mediastinum are within normal limits. No pneumothorax, pleural effusions, or consolidations. Assessment/Plan Assessment/Plan COPD with acute exacerbation Acute respiratory distress Hyperglycemia Elevated D-dimer Acute respiratory failure with hypoxia Urinary tract infection Generalized weakness Plan 1. Admit to telemetry unit 2. Breathing treatment 3. Pain control management 4. IV antibiotic management 5. Management of fluids and electrolytes 6. Consultation for pulmonology 7. Diagnostic test chest x-ray 8. DVT prophylaxis-on aspirin 9. Repeat labs CBC, CMP in a.m. 10. Home medication reviewed and reconciled 11. Continue with current medical management 12. Treatment plan discussed with patient and RN. Patient verbalized understanding. Plan discussed with: Patient, Other (RN) My Orders Orders - YAZAN RODGERS DNP Procedure Category Date Status Time Aspirin Tablet PHA 07/21/24 In Process 10:00 Ipratropium Medneb PHA 07/20/24 In Process (Atrovent Medneb) 19:45 Levalbuterol Hcl PHA 07/21/24 In Process (Xopenex Medneb) 00:00 Methylprednisolone PHA 07/20/24 In Process Sod Succ (Solu Medrol 22:00 Famotidine Injection PHA 07/20/24 In Process (Pepcid Injection) 22:00 *Consult CONS 07/20/24 Transmitted / 19:31 Ceftriaxone 1gm/50ml PHA 07/21/24 In Process D5w (Rocephin) 09:00 Allergies BRANDYN 07/20/24 In Process 19:31 Code Status CODE 07/20/24 Transmitted 19:31 Sodium Chloride Lock PHA 07/20/24 In Process (Saline Lock Ns) 22:00 Oxygen Per Hour RT 07/20/24 Transmitted 19:31 Hydrocodone-Acet PHA 07/20/24 In Process 5/325mg Tab ([place] 19:45 Ondansetron Hcl PHA 07/20/24 In Process (Zofran) 19:45 Docusate Sodium PHA 07/20/24 In Process Capsule (Colace 19:45 Complete Blood Count LAB 07/21/24 Verified 04:00 Comprehensive LAB 07/21/24 Verified Metabolic Panel 04:00 Cardiac DIET 07/21/24 Transmitted Diet-2gna,Lofat,Lochol Breakfast Condition: Serious BRANDYN 07/20/24 In Process 19:31 Acetaminophen Tablet PHA 07/20/24 In Process (Tylenol Tablet) 19:45 Bedrest With Bathroom BRANDYN 07/20/24 In Process Privileg 19:31 Sequential BRANDYN 07/20/24 In Process Compression Device Admit ADMIT 07/20/24 Verified 22:27 Nitroglycerin PHA 07/20/24 Verified Sublingual (Ntrostat 22:30 Morphine Sulfate PHA 07/20/24 Verified Injection 22:30 Notify Of Changes BRANDYN 07/20/24 Verified From Base 22:27 Upholstery Auto Trimmer For [facility] 07/20/24 Verified 24 Hours 22:27 Emergency Dysrhythmia [facility] 07/20/24 Verified Protocol 22:27 Rhythm Strips Once [facility] 07/20/24 Verified Every Shift 22:27 Oxygen By Nasal RT 07/20/24 Verified Cannula 22:27 Problem List: (1) COPD with acute exacerbation (2) Urinary tract infection (3) Hyperglycemia (4) Acute respiratory failure with hypoxia (5) Acute respiratory distress (6) Elevated d-dimer (7) Generalized weakness Date of Service: Jul 20, 2024 Billing Provider: YAZAN RODGERS DNP Common Visit Codes: [id number] INP/OBS CARE (HIGH) YAZAN RODGERS DNP Jul 20, 2024 22:28
[2024-07-20] MEDS ORDERED: NITROGLYCERIN 0.4 MG SL TAB SL PRN (22:30)
[2024-07-20] MEDS ORDERED: MORPHINE SULFATE INJ 2 MG/ml SYRG IV PRN (22:30)
[2024-07-21] VITALS (7 sets, daily range): BP systolic 130; BP diastolic 67; PULSE 78–102; RESP 12–20; O2SAT 94–97
[2024-07-21] MEDS: LEVALBUTEROL HCL 1.25 MG/3 ML NEB NEB SCH (00:30)
[2024-07-21 04:49] LABS: Basophils # (auto) 0 10 ^3/uL (0-0.2); Basophils % (auto) 0.2 % (0.0-2.0); Eosinophils # (auto) 0 10 ^3/uL (0-0.8); Hematocrit 47.4 % (36.0-46.0); Hemoglobin 15.8 g/dL (12.2-16.2); Lymphocytes # (auto) 0.7 10 ^3/uL (0.4-5.4); Lymphocytes % (auto) 13.3 % (10.0-50.0); Mean Corpuscular Hgb Conc. 33.4 g/dL (32.0-36.0); Mean Corpuscular Volume 92.9 fL (80.0-100.0); Monocytes # (auto) 0.2 10 ^3/uL (0-1.3); Monocytes % (auto) 4.5 % (0.0-12.0); Neutrophils # (auto) 4.4 10 ^3/uL (1.6-8.6); Platelet Count (auto) 330 10^3/uL (140-450); Red Cell Distribution Width 13.6 % (11.8-14.3); White Blood Cell 5.4 10^3/uL (4.4-10.8)
[2024-07-21 05:06] LABS: Alanine Aminotransferase 14 U/L (7-40); Albumin 3.9 g/dL (3.2-4.8); Alkaline Phosphatase 61 U/L (46-116); Anion Gap 3 (5-15); BUN/Creatinine Ratio 25.6 (10.0-20.0); Blood Urea Nitrogen 20 mg/dL (9-23); Calcium 9.4 mg/dL (8.7-10.4); Chloride 104 mmol/L (98-107); Potassium 5.1 mmol/L (3.5-5.1); Sodium 140 mmol/L (136-145)
[2024-07-21 05:07] LABS: Aspartate Aminotransferase 12 U/L (13-40); Bilirubin, Total 0.3 mg/dL (0.2-1.0); Carbon Dioxide 33 mmol/L (20-31); Glucose 164 mg/dL (74-106); Total Protein 6.6 g/dL (5.7-8.2)
[2024-07-21] MEDS: cefTRIAXone 1GM/50ML D5W 50 ML IV SCH (09:59)
[2024-07-21] MEDS ORDERED: VANCOMYCIN PER PHARMACY 0 MG IV SCH (11:30)
--- NOTE | 2024-07-21 11:30 | DVHPNRES ---
Progress Note Date Seen: Jul 21, 2024 Resident Creating Document: KARI FERRELL RESIDENT Has the PT tested + for MRSA If YES, has PT been informed?: No Medical Necessity Reason Pt with a Central, PICC or Fol: No Objective vital signs Vital Sign Date Time Temp Pulse Resp B/P (MAP) Pulse Ox O2 Delivery O2 Flow Rate FiO2 07/21/24 11:24 102 19 97 07/21/24 11:16 Nasal Cannula 5.0 07/21/24 11:16 40 07/21/24 07:00 140/62 (88) 07/20/24 15:32 98.0 98.0 medications Current Medications Medications Dose Ordered Sig/Timothy Route Start Time Stop Time Status Last Admin Dose Admin Aspirin 81 mg DAILY PO 07/21/24 10:00 Ipratropium Exchange 0.5 mg Q4HPRN PRN NEB 07/20/24 19:45 07/21/24 11:16 0.5 MG Levalbuterol HCl 0.625 mg Q6HR NEB 07/21/24 00:00 07/21/24 11:16 0.625 MG Methylprednisolone Sodium Succinate 40 mg Q8HR IV 07/20/24 22:00 07/21/24 06:00 40 MG Famotidine 20 mg Q12HR IV 07/20/24 22:00 07/20/24 22:21 20 MG Ceftriaxone Sodium 50 ml @ 100 mls/hr DAILY@09 IV 07/21/24 09:00 07/21/24 09:59 100 MLS/HR Sodium Chloride 10 ml Q8HR IV 07/20/24 22:00 07/21/24 06:00 10 ML Acetaminophen/ Hydrocodone Bitart 1 tab Q4HP PRN PO 07/20/24 19:45 Ondansetron HCl 4 mg Q4HP PRN IV 07/20/24 19:45 Docusate Sodium 100 mg BIDPRN PRN PO 07/20/24 19:45 Acetaminophen 650 mg Q6HP PRN PO 07/20/24 19:45 Nitroglycerin 0.4 mg Q5MINP PRN SL 07/20/24 22:30 Morphine Sulfate 2 mg Q30M PRN IV 07/20/24 22:30 Examination General Appearance: Alert, Oriented X3, Cooperative, No acute distress HEENT: Atraumatic, PERRLA, EOMI, Mucous membr. moist/pink Respiratory: Normal air movement, Other (Diminished breath sounds) Cardiovascular: Regular rate, Normal S1, Normal S2, No murmurs Abdominal: Normal bowel sounds, Soft, No tenderness, No hepatospenomegaly, No masses Extremities: No clubbing, No cyanosis, No edema, Normal pulses, No tenderness/swelling Skin: No rashes, No breakdown, No significant lesion Neuro: Normal speech, Normal tone, Sensation intact, Cranial nerves 3-12 NL, Reflexes 2+, Other (Generalized weakness) Psych/Mental Status: Mental status NL, Mood NL laboratory and microbiology Laboratory Tests 07/21/24 04:14 Test 07/21/24 04:14 Range/Units Serum Glucose 164 H 74-106 mg/dL Microbiology Date/Time Source Procedure Growth Status 07/20/24 14:25 Blood Blood Culture - Preliminary Resulted Labs and/or images reviewed: Labs reviewed by me, Image(s) reviewed by me Problem List/Assessment/Plan Problem List/Assessment/Plan Hospitalization summary/ Assessment: A 69-year-old female with a history of lung cancer and COPD presented to the ED with worsening shortness of breath, hypoxia, and O2 saturation in the 60s on room air. EMS placed her on CPAP en route to the hospital. Lab results showed elevated troponin (12) and a positive urinalysis for UTI. Chest x-ray was clear. She was started on IV Rocephin and admitted for further evaluation and management. She denies chest pain, headache, dizziness, diarrhea, nausea, vomiting, fever, and chills. She lives at home and denies smoking, alcohol, or drug use. extremely poor historian Plan: # COPD exacerbation: Likely due to community-acquired pneumonia, continue treatment, COPD, check for COVID B # acute on chronic hypoxic And hypercapnic respiratory failure: Patient is needing more oxygen than baseline, BiPAP as needed. Mostly at night. mildly elevated D-dimer, likely due to the ongoing infection. If patient remains oxygen dependent or worsening need of oxygen we will check for CTA. # UTI: Follow blood culture, urine culture, continue antibiotics IV. # Prior 60 pack-year smoking history: Needs outpatient follow up for lung cancer. # Prediabetes 6.1% # Gram-positive bacteremia: Started the patient on IV vancomycin, follow the cultures. # Obstructive sleep apnea: Patient has home CPAP but noncompliant. # Known COPD: As per patient it was controlled with home nebulizers/ inhalers , oxygen dependent 1-2 L [id number]. Diet: Cardiac diet GI prophylaxis: protonix 40mg/Famotidine 20/not needed DVT prophylaxis: Levonox 40mg continue,c Bowel regimen: b.i.d. p.r.n.. Barriers to discharge: Medical diagnosis and managment in progress. Patient lives with Boyfriend and son. Independent of movement yet movement limited by short of breath PCP: Dr. Dominguez, she follows with the pulmonology locally Specialist Relevent To Admission: pulmonology Patient care and plan discussed with Dr. Dorado Disposition: Patient remains in telemetry: Code status: Full code, discussion needed 27 minutes. Plan discussed with: Patient, Other (RN, primary team. ) My Orders My Orders Orders - KARI FERRELL Procedure Category Date Status Time Covid19 Antigen [facility] 07/21/24 Logged Urine Bacterial LUZ MARIA 07/21/24 Logged Culture 11:14 Mrsa Screen LUZ MARIA 07/21/24 Logged 11:24 Azithromycin Tablet PHA 07/21/24 Logged (Zithromax Tablet) 11:30 Azithromycin Tablet PHA 07/22/24 Logged (Zithromax Tablet) 10:00 Vancomycin Per PHA 07/21/24 Logged Pharmacy 11:30 Date of Service: Jul 21, 2024 Billing Provider: DWAYNE LLANES MD Common Visit Codes: [id number] INP/OBS CARE(HIGH) KARI FERRELL RESIDENT Jul 21, 2024 11:29 DWAYNE LLANES MD Jul 24, 2024 09:24
[2024-07-21] MEDS: ASPirin 81 mg TAB PO SCH (13:10)
[2024-07-21] MEDS: AZITHROMYCIN 250 MG TAB PO ONE (13:10)
[2024-07-21] MEDS: VANCOMYCIN 1GM/250ML KIT 250 ML IV ONE (13:17)
[2024-07-21 18:54] LABS: COVID19 ANTIGEN SOFIA FIA NEGATIVE (NEGATIVE)
[2024-07-21] MEDS ORDERED: DOCUSATE SOD 100 MG CAP PO PRN (19:00)
[2024-07-21] MEDS: IOHEXOL 350 MG/ML 100ML IJ ONE (19:07)
[2024-07-21] MEDS: LACTATED RINGER'S 500 ML IV ONE (19:30)
--- NOTE | 2024-07-21 19:42 | DVH ---
Procedure: CT CT ANGIO CHEST CONTRAST Reason for study/Clinical History: Elevated d-dimer Comparison Study: None available at time of dictation. Exam Date: 07/21/2024 07:09 PM Radiation Dose Information: CT Dose: CTDI volume is 27.57 mGy. Dose-length product is 714.97 mGy*cm Contrast: Type of contrast: Omnipaque 350 Contrast inject: 100 mL Contrast wasted:0 TECHNIQUE: After the uneventful administration of intravenous contrast intravenously, CT imaging was performed through the chest. Coronal and sagittal reformations were performed by the technologist. Yemi headley was scanned in a right lateral position for pulmonary embolus. FINDINGS: Lower Neck: Visualized portions of the thyroid gland are unremarkable. Aorta and Vasculature: Normal caliber of thoracic aorta. Lymph Nodes: No enlarged intrathoracic lymph nodes. Mediastinum: Heart size is normal. There is no pericardial effusion. The esophagus is unremarkable. Lungs: No focal consolidation, pleural effusion or significant pneumothorax. No suspicious pulmonary nodule or mass. Musculoskeletal: No acute osseous abnormality. Upper abdomen: Limited portions of the upper abdomen are unremarkable. Multiple cystic lesions in bot h kidneys with a partially calcified hypodense mass upper pole left kidney. Tissue density is 3.7 radha nsfield units which is cystic. IMPRESSION: 1. No findings of pulmonary emboli or pulmonary artery hypertension. Partially calcified cyst upper pole left kidney unchanged from 09/26/2021. All CT scans at this medical facility are performed using dose modulation techniques as appropriate t o a performed exam including the following: Automated exposure control was utilized; adjustment of th e MA and/or KV according to patient size; and use of iterative reconstruction technique. HS:Y
[2024-07-21] MEDS: ENOXAPARIN SOD 40 MG/0.4 ML SYRINGE SC ONE (20:00)
[2024-07-21 20:09] LABS: Basophils # (auto) 0 10 ^3/uL (0-0.2); Basophils % (auto) 0.1 % (0.0-2.0); Eosinophils # (auto) 0 10 ^3/uL (0-0.8); Hematocrit 47.8 % (36.0-46.0); Hemoglobin 15.8 g/dL (12.2-16.2); Lymphocytes # (auto) 0.7 10 ^3/uL (0.4-5.4); Lymphocytes % (auto) 10.5 % (10.0-50.0); Mean Corpuscular Hemoglobin 30.8 pg (28.0-32.0); Mean Corpuscular Volume 93.4 fL (80.0-100.0); Monocytes # (auto) 0.4 10 ^3/uL (0-1.3); Monocytes % (auto) 5.7 % (0.0-12.0); Neutrophils # (auto) 5.3 10 ^3/uL (1.6-8.6); Neutrophils % (auto) 83.7 % (37.0-80.0); Nucleated Red Blood Cells % 0.2 %; Platelet Count (auto) 313 10^3/uL (140-450); Red Blood Cells 5.12 10^6/uL (4.0-5.20); Red Cell Distribution Width 13.8 % (11.8-14.3); White Blood Cell 6.3 10^3/uL (4.4-10.8)
[2024-07-21 20:26] LABS: Alanine Aminotransferase 14 U/L (7-40); Albumin 3.7 g/dL (3.2-4.8); Alkaline Phosphatase 59 U/L (46-116); Anion Gap 6 (5-15); BUN/Creatinine Ratio 20.3 (10.0-20.0); Blood Urea Nitrogen 16 mg/dL (9-23); Calcium 9.3 mg/dL (8.7-10.4); Carbon Dioxide 30 mmol/L (20-31); Chloride 101 mmol/L (98-107); Potassium 4.8 mmol/L (3.5-5.1); Sodium 137 mmol/L (136-145)
[2024-07-21 20:27] LABS: Total Protein 6.4 g/dL (5.7-8.2)
[2024-07-21 20:28] LABS: Aspartate Aminotransferase 13 U/L (13-40); Bilirubin, Total 0.2 mg/dL (0.2-1.0); Glucose 206 mg/dL (74-106)
--- NOTE | 2024-07-21 23:58 | DVHINCON2 ---
Date of service: Jul 21, 2024 Referring Physician Robby Armendariz MD Reason for Consultation Acute hypoxic respiratory failure, COPD exacerbation History of Present Illness A 69-year-old woman with past medical history of lung cancer and COPD who presented to ED on 07/20/24 with complaint of shortness of breath. Patient reports symptoms progressively get worse with increased work of breathing, hypoxic, O2 saturation in the 60s on room air, getting worse that EMS were called. When EMS arrived on the scene, patient was placed on CPAP EN route to our facility ED. Workup in ED shows WBC 8.6, hemoglobin 17.0, hematocrit 51.7, platelets 307, sodium 143, potassium 4.5, BUN 23, creatinine 0.68, GFR 63, glucose 230 trending down to 164, hemoglobin A1c 6.1, lactic acid 3.4 trending down to 1.3, BNP 61.38, D-dimer 1.78, troponin 12. Urinalysis positive for urinary tract infection. Chest x-ray shows no pneumothorax, pleural effusions or consolidations. Patient was admitted for further care and pulmonary consultation is requested for evaluation and management of acute hypoxic respiratory failure and COPD exacerbation. Review of Systems: 14-point review of systems negative unless otherwise noted above. Past Medical History: Lung cancer, COPD Past Surgical History: None Medications: Reviewed. Allergies: No known drug allergies. Family History: Emphysema. Social History: Nonsmoker. No alcohol or illicit drug use. Family History: FH: emphysema Allergies: Coded Allergies: NO KNOWN ALLERGIES (Unverified , 09/26/21) Home Meds Active Scripts Prednisone (Prednisone) 20 Mg Tab, 40 MG PO DAILY for 5 Days, #10 MG 0 Refills Prov:DWAYNE LLANES MD 07/23/24 Doxycycline Monohydrate (Doxycycline Monohydrate) 100 Mg Tab, 100 MG PO BID for 5 Days, #10 TAB 0 Refills Prov:DWAYNE LLANES MD 07/23/24 Aspirin (Aspirin Low Strength) 81 Mg Chw, 81 MG PO DAILY for 30 Days, #30 TAB.CHEW Prov:AMANDA LEDEZMA MD 09/29/21 Reported Medications Hydroxyzine Hcl (Hydroxyzine Hcl) 25 Mg Tab, 25 MG PO BID for 30 Days, MG 07/23/24 Budesonide-Formoterol Fumarate (Budesonide/Formoterol Fum 160-4.5 Mcg/Act) 1 Aer Aer, INH 09/27/21 Albuterol Sulfate (Albuterol Sulfate Hfa) 108 Mcg/Act Aer, INH 09/27/21 Tiotropium Ira Monohydrate (Spiriva Respimat) 2.5 Mcg/Act Spr, 2 PUFF INH DAILYPRN 09/27/21 Discontinued Reported Medications Montelukast Sodium (MONTELUKAST SODIUM) 10 Mg Tab, 1 TAB PO DAILYPRN 09/27/21 Discontinued Scripts Prednisone (Prednisone) 20 Mg Tab, 40 MG PO DAILY for 3 Days, #3 TAB Prov:AMANDA LEDEZMA MD 09/29/21 Doxycycline Monohydrate (Doxycycline Monohydrate) 100 Mg Tab, 100 MG PO BID for 7 Days, #14 TAB Prov:AMANDA LEDEZMA MD 09/29/21 Current Medications Current Medications Medications (Trade) Dose Ordered Sig/Timothy Route PRN Reason Start Time Stop Time Status Last Admin Aspirin 81 mg DAILY PO 07/21/24 10:00 07/21/24 13:10 Levalbuterol HCl (Xopenex Medneb) 0.625 mg Q6HR NEB 07/21/24 00:00 07/21/24 18:45 Ceftriaxone Sodium 50 ml @ 100 mls/hr DAILY@09 IV 07/21/24 09:00 07/21/24 09:59 Azithromycin (Zithromax Tablet) 500 mg DAILY PO 07/22/24 10:00 Vancomycin HCl 0 ml @ 0 mls/hr UD IV 07/21/24 11:30 Vancomycin HCl 250 ml @ 250 mls/hr Q16H IV 07/22/24 05:00 Enoxaparin Sodium (Lovenox) 40 mg DAILY SC 07/22/24 10:00 Docusate Sodium (Colace Capsule) 100 mg BIDPRN PRN PO FOR CONSTIPATION 07/21/24 19:00 07/21/24 19:12 DC Alprazolam (Xanax Tablet) 0.25 mg Q8HP PRN PO ANXIETY 07/21/24 23:30 Vital Signs Vital Signs Date Time Temp Pulse Resp B/P (MAP) Pulse Ox O2 Delivery O2 Flow Rate FiO2 07/21/24 18:55 100 20 96 07/21/24 18:45 Nasal Cannula 4.0 07/21/24 18:45 36 07/21/24 17:00 124/76 (92) 07/20/24 15:32 98.0 98.0 Physical Exam Gen.: Patient lying in bed in no apparent distress. On BiPAP Head: Normocephalic, atraumatic. Eyes: EOMI/PERRLA. Ears: Normal hearing. Normal anatomy. Neck/trachea: Trachea midline, supple. Nose: Normal external anatomy. Mouth: Moist mucous membranes. Chest: Decreased air entry bilaterally. No wheezing or rhonchi. Cardiovascular: Positive S1, positive S2. Regular rate and rhythm. Abdomen: Positive bowel sounds in all 4 quadrants. Soft, non-tender, non- distended. : Deferred. Rectal: Deferred. Skin: Warm, dry. Intact. Extremities: 2+ radial pulses bilaterally. No lower extremity edema. Neuro: Awake, alert, oriented x3. No gross motor or sensory deficits. Cranial nerves II through XII intact. Gait not assessed. Labs/Diagnostic Data Labs Test 07/21/24 19:47 07/21/24 17:50 07/20/24 17:11 07/20/24 16:55 Range/Units White Blood Count 6.3 4.4-10.8 10^3/uL Red Blood Count 5.12 4.0-5.20 10^6/uL Hemoglobin 15.8 12.2-16.2 g/dL Hematocrit 47.8 H 36.0-46.0 % Mean Corpuscular Volume 93.4 80.0-100.0 fL Mean Corpuscular Hemoglobin 30.8 28.0-32.0 pg Mean Corpuscular Hemoglobin Concent 33.0 32.0-36.0 g/dL Red Cell Distribution Width 13.8 11.8-14.3 % Platelet Count 313 140-450 10^3/uL Mean Platelet Volume 8.4 6.9-10.8 fL Neutrophils (%) (Auto) 83.7 H 37.0-80.0 % Lymphocytes (%) (Auto) 10.5 10.0-50.0 % Monocytes (%) (Auto) 5.7 0.0-12.0 % Eosinophils (%) (Auto) 0.0 0.0-7.0 % Basophils (%) (Auto) 0.1 0.0-2.0 % Neutrophils # (Auto) 5.3 1.6-8.6 10 ^3/uL Lymphocytes # (Auto) 0.7 0.4-5.4 10 ^3/uL Monocytes # (Auto) 0.4 0-1.3 10 ^3/uL Eosinophils # (Auto) 0 0-0.8 10 ^3/uL Basophils # (Auto) 0 0-0.2 10 ^3/uL Nucleated Red Blood Cells 0.2 % Sodium Level 137 136-145 mmol/L Potassium Level 4.8 3.5-5.1 mmol/L Chloride Level 101 98-107 mmol/L Carbon Dioxide Level 30 20-31 mmol/L Anion Gap 6 5-15 Blood Urea Nitrogen 16 9-23 mg/dL Creatinine 0.79 0.550-1.02 mg/dL Glomerular Filtration Rate Calc 81 >90 mL/min BUN/Creatinine Ratio 20.3 H 10.0-20.0 Serum Glucose 206 H 74-106 mg/dL Calcium Level 9.3 8.7-10.4 mg/dL Total Bilirubin 0.2 0.2-1.0 mg/dL Aspartate Amino Transferase (AST) 13 13-40 U/L Alanine Aminotransferase (ALT) 14 7-40 U/L Alkaline Phosphatase 59 46-116 U/L Total Protein 6.4 5.7-8.2 g/dL Albumin 3.7 3.2-4.8 g/dL SARS-CoV-2 Antigen (Rapid) Negative NEGATIVE Urine Color Yellow Yellow Urine Clarity Turbid H Clear Urine pH 6.0 5.0-9.0 Urine Specific Kaufman 1.022 1.001-1.035 Urine Protein 2+ H Negative Urine Ketones Trace Negative Urine Blood Trace H Negative /uL Urine Nitrite Negative Negative Urine Bilirubin Negative Negative Urine Urobilinogen 3 H Negative mg/dL Urine Leukocyte Esterase 3+ Negative /uL Urine RBC 6 0 - 4 /hpf Urine WBC 101 0 - 5 /hpf Urine Squamous Epithelial Cells Few <5 /hpf Urine Bacteria Many H None Seen /hpf Urine Hyaline Casts Many 0 - 2 /lpf Urine Mucus Few None Seen Urine Glucose Normal Normal mg/dL Lactic Acid Level 1.3 0.4-2.0 mmol/L Troponin I High Sensitivity 19 </=34 ng/L Test 07/20/24 16:38 07/20/24 15:23 07/20/24 14:17 Range/Units Blood Gas Specimen Type Arterial Blood Gas Sample Site Right radial Blood Gas Patient Temperature 37.0 Arterial Blood Date Drawn [id number] Arterial Blood pH 7.330 L 7.350-7.450 Arterial Blood Partial Pressure CO2 59.5 H 32.0-45.0 mmHg Arterial Blood Partial Pressure O2 > 529.9 *H 83.0-108.0 mmHg Arterial Blood HCO3 30.7 H 21.0-28.0 mmol/L Arterial Blood Oxygen Saturation 99.8 H 94.0-98.0 % Arterial Blood Base Excess 2.7 -2.0-3.0 mmol/L Arterial Blood Oxyhemoglobin 98.5 H 94.0-98.0 % Arterial Blood Carboxyhemoglobin 0.5 0.5-1.5 % Arterial Blood Methemoglobin 0.8 0.0-1.5 % Ga Test Modified Blood Gas Total Hemoglobin 17.50 H 12.0-16.0 g/dL Blood Gas Set Respiration Rate 16.0 Blood Gas Modality Mask - bipap Blood Gas Spontaneous Rate 20 FiO2 % 100.0 Blood Gas EPAP 5 Blood Gas IPAP 12 Blood Gas Critical Value Read Back Yes Blood Gas Notified Whom Blood Gas Notified Time [id number] Blood Gas Notified By Service Technician Copier radha Influenza Type A Antigen Negative Negative Influenza Type B Antigen Negative Negative D-Dimer, Quantitative 1.78 H 0.0-0.49 mg/L FEU Hemoglobin A1c 6.1 H <5.7 % A1C Magnesium Level 2.0 1.6-2.6 mg/dL B-Type Natriuretic Peptide 61.38 0-100 pg/mL Microbiology Date/Time Source Procedure Growth Status 07/20/24 14:25 Blood Blood Culture - Preliminary Resulted Assessment Impression: Acute hypoxic respiratory failure COPD with acute exacerbation Acute respiratory distress Elevated D-dimer Urinary tract infection Generalized weakness Plan: On BiPAP Titrate to keep O2 sats above 92%. Taper as tolerated. Continue bronchodilators. Continue antibiotics IV steroids Xanax 0.25 mg PO q.8 hours PRN anxiety. Pain control Avoid oversedation Monitor renal function. Monitor electrolytes. Supplement as necessary. Monitor ins and outs. DVT prophylaxis. Prognosis: Poor given patient's multiple co-morbidities. Rest of plan per hospitalist and other consultants. Thank you Dr. Armendariz for allowing me to participate in this patient's care. Further recommendations will depend on the patient's clinical course. Please do not hesitate to contact me if you have any questions or concerns. This medical document was created using an electronic medical record system with [employer] dictation system. Although these documentations are being carefully reviewed, there may still be some phonetic and typographical changes. The errors are purely typographical, due to imperfection on the software program, and do not reflect any compromise in the patient's medical care. Plan discussed with: Patient, Other (RN/MD Armendariz) PATRIZIA MEDINA MD Jul 21, 2024 23:58
[2024-07-22] VITALS (8 sets, daily range): BP systolic 145–155; BP diastolic 76–94; PULSE 75–113; RESP 15–22; TEMP 97.8–98.6; O2SAT 91–98
[2024-07-22] MEDS: ALPRAZolam 0.25 MG TAB PO PRN
[2024-07-22] MEDS: VANCOMYCIN 1GM/250ML KIT 250 ML IV SCH (06:00)
[2024-07-22] MEDS: ENOXAPARIN SOD 40 MG/0.4 ML SYRINGE SC SCH (10:54)
[2024-07-22] MEDS: AZITHROMYCIN 250 MG TAB PO SCH (10:55)
[2024-07-22] MEDS: IPRATROPIUM BROM 0.5 MG/2.5ML INH SOL ONE (11:51)
[2024-07-22] MEDS: ALBUTEROL SULF 2.5 MG/0.5ML(0.5%) NEB SOLN ONE (11:51)
[2024-07-22 12:37] LABS: Benzodiazephine Screen, Urine Neg (NEGATIVE)
[2024-07-22 12:47] LABS: Amphetamine Screen, Urine Neg (NEGATIVE); Barbiturate Scree,Urine Neg (NEGATIVE); Cannabinoid Screen, Urine Neg (NEGATIVE); Cocaine Screen, Urine Pos (NEGATIVE); Opiate Scree,Urine Neg (NEGATIVE); Phencyclidine Screen, Urine Neg (NEGATIVE)
--- NOTE | 2024-07-22 19:47 | DVHPNRES ---
Progress Note Date Seen: Jul 22, 2024 Resident Creating Document: ROMÁN XIE CARLEE Has the PT tested + for MRSA If YES, has PT been informed?: No Medical Necessity Reason Pt with a Central, PICC or Fol: No Subjective Review of Systems A 69-year-old female with a history of lung cancer and COPD presented to the ED with worsening shortness of breath, hypoxia, and O2 saturation in the 60s on room air. EMS placed her on CPAP en route to the hospital. Lab results showed elevated troponin (12) and a positive urinalysis for UTI. Chest x-ray was clear. She was started on IV Rocephin and admitted for further evaluation and management. She denies chest pain, headache, dizziness, diarrhea, nausea, vomiting, fever, and chills. She lives at home and denies smoking, alcohol, or drug use. extremely poor historian. 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 Allergic history: Noncontributory Today, patient seen and examined at the bedside. Patient is feeling better since admission, but still complained of shortness of breathe. Patient reports: No new complaints, Feels better Objective vital signs Vital Sign Date Time Temp Pulse Resp B/P (MAP) Pulse Ox O2 Delivery O2 Flow Rate FiO2 07/22/24 18:35 91 15 94 07/22/24 18:25 Nasal Cannula 4.0 07/22/24 18:25 36 07/22/24 15:00 124/62 (82) 07/22/24 01:34 98.6 98.6 medications Current Medications Medications Dose Ordered Sig/Timothy Route Start Time Stop Time Status Last Admin Dose Admin Aspirin 81 mg DAILY PO 07/21/24 10:00 07/22/24 10:54 81 MG Ipratropium [place] 0.5 mg Q4HPRN PRN NEB 07/20/24 19:45 07/22/24 07:55 0.5 MG Levalbuterol HCl 0.625 mg Q6HR NEB 07/21/24 00:00 07/22/24 18:31 0.625 MG Methylprednisolone Sodium Succinate 40 mg Q8HR IV 07/20/24 22:00 07/22/24 14:00 40 MG Famotidine 20 mg Q12HR IV 07/20/24 22:00 07/22/24 10:00 20 MG Ceftriaxone Sodium 50 ml @ 100 mls/hr DAILY@09 IV 07/21/24 09:00 07/22/24 09:00 100 MLS/HR Sodium Chloride 10 ml Q8HR IV 07/20/24 22:00 07/22/24 14:20 10 ML Acetaminophen/ Hydrocodone Bitart 1 tab Q4HP PRN PO 07/20/24 19:45 Ondansetron HCl 4 mg Q4HP PRN IV 07/20/24 19:45 Docusate Sodium 100 mg BIDPRN PRN PO 07/20/24 19:45 Acetaminophen 650 mg Q6HP PRN PO 07/20/24 19:45 Nitroglycerin 0.4 mg Q5MINP PRN SL 07/20/24 22:30 Morphine Sulfate 2 mg Q30M PRN IV 07/20/24 22:30 Azithromycin 500 mg DAILY PO 07/22/24 10:00 07/22/24 10:55 500 MG Vancomycin HCl 0 ml @ 0 mls/hr UD IV 07/21/24 11:30 Vancomycin HCl 250 ml @ 250 mls/hr Q16H IV 07/22/24 05:00 07/22/24 06:00 250 MLS/HR Enoxaparin Sodium 40 mg DAILY SC 07/22/24 10:00 07/22/24 10:54 40 MG Alprazolam 0.25 mg Q8HP PRN PO 07/21/24 23:30 07/22/24 10:54 0.25 MG Examination General Appearance: Alert, Oriented X3, Cooperative, No acute distress HEENT: Atraumatic, PERRLA, EOMI, Mucous membrane moist/pink Respiratory: Bilateral rhonchi Cardiovascular: Regular rate, Normal S1, Normal S2, No murmurs, no chest wall tenderness Abdominal: Normal bowel sounds, Soft, No tenderness, No hepatospenomegaly, No masses Extremities: No clubbing, No cyanosis, No edema, Normal pulses, No tenderness/swelling Skin: No rashes, No breakdown, No significant lesion Neuro: Normal gait, Normal speech, Strength at 5/5 X4 ext, Normal tone, Sensation intact, Cranial nerves 3-12 NL, Reflexes 2+ Psych/Mental Status: Mental status NL, Mood NL laboratory and microbiology Laboratory Tests 07/22/24 10:29 07/21/24 19:47 Test 07/21/24 19:47 Range/Units Serum Glucose 206 H 74-106 mg/dL Microbiology Date/Time Source Procedure Growth Status 07/20/24 14:25 Blood Blood Culture - Preliminary Resulted Labs and/or images reviewed: Labs reviewed by me, Image(s) reviewed by me Problem List/Assessment/Plan Problem List/Assessment/Plan # COPD exacerbation: Likely due to community-acquired pneumonia, continue treatment, COPD, check for COVID B # acute on chronic hypoxic And hypercapnic respiratory failure: Patient is needing more oxygen than baseline, BiPAP as needed. Mostly at night. mildly elevated D-dimer, likely due to the ongoing infection. If patient remains oxygen dependent or worsening need of oxygen we will check for CTA. # pneumonia, likely due to Gram-positive Gram-negative, empiric antibiotics azithromycin and ceftriaxone # UTI: Follow blood culture, urine culture, continue antibiotics IV. # Prior 60 pack-year smoking history: Needs outpatient follow up for lung cancer. # Prediabetes 6.1% # Gram-positive bacteremia: Blood cultures shows Gram-positive cocci in cluster, Started the patient on IV vancomycin, follow the cultures. # Obstructive sleep apnea: Patient has home CPAP but noncompliant. # Known COPD: As per patient it was controlled with home nebulizers/ inhalers , oxygen dependent 1-2 L [id number]. # polycythemia, follow up on outpatient basis # cocaine use disorder, UDS shows cocaine positive, patient counseled for more than 21 minutes for cocaine cessation DIET: Cardiac diet DVT PROPHYLAXIS: Lovenox GI PROPHYLAXIS:: Famotidine BOWEL REGIMEN: Colace as needed CODE STATUS: Goal of care discussed for more than 21 minutes, full code DISPOSITION: Telemetry Patient's status discussed with the patient. Case discussed with Dr. Dorado. Plan discussed with: Other (RN) My Orders My Orders Orders - ROMÁN XIE RESDIMELISSA Procedure Category Date Status Time Echo 2d Mode Cardiac US 07/22/24 Transmitted DOP 10:48 Date of Service: Jul 22, 2024 Billing Provider: DWAYNE LLANES MD Common Visit Codes: [id number] INP/OBS CARE(HIGH) ROMÁN XIE Jul 22, 2024 19:47 DWAYNE LLANES MD Jul 24, 2024 09:30
--- NOTE | 2024-07-22 23:39 | DVHPN2 ---
Progress Note - Dictate Date Seen: Jul 22, 2024 Has the PT tested + for MRSA If YES, has PT been informed?: No Medical Necessity Reason Pt with a Central, PICC or Fol: No Subjective Patient seen and examined at bedside. Remains on supplemental oxygen Overnight events reviewed. vital signs Vital Sign Date Time Temp Pulse Resp B/P (MAP) Pulse Ox O2 Delivery O2 Flow Rate FiO2 07/22/24 20:00 98.0 103 17 134/74 (94) 92 98.0 07/22/24 19:30 Nasal Cannula* 4 36 medications Current Medications Medications Dose Ordered Sig/Timothy Route Start Time Stop Time Status Last Admin Dose Admin Aspirin 81 mg DAILY PO 07/21/24 10:00 07/22/24 10:54 81 MG Ipratropium [place] 0.5 mg Q4HPRN PRN NEB 07/20/24 19:45 07/22/24 07:55 0.5 MG Levalbuterol HCl 0.625 mg Q6HR NEB 07/21/24 00:00 07/22/24 18:31 0.625 MG Methylprednisolone Sodium Succinate 40 mg Q8HR IV 07/20/24 22:00 07/22/24 22:47 40 MG Famotidine 20 mg Q12HR IV 07/20/24 22:00 07/22/24 22:44 20 MG Ceftriaxone Sodium 50 ml @ 100 mls/hr DAILY@09 IV 07/21/24 09:00 07/22/24 09:00 100 MLS/HR Sodium Chloride 10 ml Q8HR IV 07/20/24 22:00 07/22/24 22:46 10 ML Acetaminophen/ Hydrocodone Bitart 1 tab Q4HP PRN PO 07/20/24 19:45 Ondansetron HCl 4 mg Q4HP PRN IV 07/20/24 19:45 Docusate Sodium 100 mg BIDPRN PRN PO 07/20/24 19:45 Acetaminophen 650 mg Q6HP PRN PO 07/20/24 19:45 Nitroglycerin 0.4 mg Q5MINP PRN SL 07/20/24 22:30 Morphine Sulfate 2 mg Q30M PRN IV 07/20/24 22:30 Azithromycin 500 mg DAILY PO 07/22/24 10:00 07/22/24 10:55 500 MG Vancomycin HCl 0 ml @ 0 mls/hr UD IV 07/21/24 11:30 Vancomycin HCl 250 ml @ 250 mls/hr Q16H IV 07/22/24 05:00 07/22/24 22:44 250 MLS/HR Enoxaparin Sodium 40 mg DAILY SC 07/22/24 10:00 07/22/24 10:54 40 MG Alprazolam 0.25 mg Q8HP PRN PO 07/21/24 23:30 07/22/24 21:23 0.25 MG objective Gen.: Patient lying in bed in no apparent distress. On supplemental oxygen. Head: Normocephalic, atraumatic. Eyes: EOMI/PERRLA. Ears: Normal hearing. Normal anatomy. Neck/trachea: Trachea midline, supple. Nose: Normal external anatomy. Mouth: Moist mucous membranes. Chest: Decreased air entry bilaterally. No wheezing or rhonchi. Cardiovascular: Positive S1, positive S2. Regular rate and rhythm. Abdomen: Positive bowel sounds in all 4 quadrants. Soft, non-tender, non- distended. : Deferred. Rectal: Deferred. Skin: Warm, dry. Intact. Extremities: 2+ radial pulses bilaterally. No lower extremity edema. Neuro: Awake, alert, oriented x3. No gross motor or sensory deficits. Cranial nerves II through XII intact. Gait not assessed. laboratory and microbiology Laboratory Tests 07/22/24 10:29 07/21/24 19:47 Test 07/21/24 19:47 Range/Units Serum Glucose 206 H 74-106 mg/dL Assessment/Plan Impression: Acute hypoxic respiratory failure COPD with acute exacerbation Acute respiratory distress Elevated D-dimer Urinary tract infection Generalized weakness Events: Remains on supplemental oxygen, 5 LPM NC Taper O2 as tolerated Tamiflu course Continue bronchodilators Continue IV steroids Continue antibiotics Incentive spirometry Labs and imaging reviewed. Rest of plan as noted below. Plan: Supplemental oxygen Titrate to keep O2 sats above 92%. Continue bronchodilators. Continue antibiotics IV steroids Xanax 0.25 mg PO q.8 hours PRN anxiety. Pain control Avoid oversedation Monitor renal function. Monitor electrolytes. Supplement as necessary. Monitor ins and outs. DVT prophylaxis. Prognosis: Poor given patient's multiple co-morbidities. Rest of plan per hospitalist and other consultants. Thank you Dr. Armendariz for allowing me to participate in this patient's care. Further recommendations will depend on the patient's clinical course. Please do not hesitate to contact me if you have any questions or concerns. This medical document was created using an electronic medical record system with [employer] computerized dictation system. Although these documentations are being carefully reviewed, there may still be some phonetic and typographical changes. The errors are purely typographical, due to imperfection on the software program, and do not reflect any compromise in the patient's medical care. Plan discussed with: Patient, Other (YARELY Hughes) PATRIZIA MEDINA MD Jul 22, 2024 23:39
[2024-07-23] VITALS (22 sets, daily range): BP systolic 99–155; BP diastolic 42–94; PULSE 75–120; RESP 16–24; TEMP 97.4–98.3; O2SAT 91–100
[2024-07-23] MEDS ORDERED: HYDR-3682 PO (00:17)
[2024-07-23 07:14] LABS: Basophils # (auto) 0 10 ^3/uL (0-0.2); Basophils % (auto) 0.1 % (0.0-2.0); Eosinophils # (auto) 0 10 ^3/uL (0-0.8); Hematocrit 49.8 % (36.0-46.0); Hemoglobin 16.4 g/dL (12.2-16.2); Lymphocytes # (auto) 0.7 10 ^3/uL (0.4-5.4); Lymphocytes % (auto) 8.6 % (10.0-50.0); Mean Corpuscular Hemoglobin 30.8 pg (28.0-32.0); Mean Corpuscular Volume 93.3 fL (80.0-100.0); Monocytes # (auto) 0.5 10 ^3/uL (0-1.3); Monocytes % (auto) 6.8 % (0.0-12.0); Neutrophils # (auto) 6.6 10 ^3/uL (1.6-8.6); Neutrophils % (auto) 84.5 % (37.0-80.0); Platelet Count (auto) 322 10^3/uL (140-450); Red Blood Cells 5.33 10^6/uL (4.0-5.20); Red Cell Distribution Width 13.7 % (11.8-14.3); White Blood Cell 7.8 10^3/uL (4.4-10.8)
[2024-07-23 08:20] LABS: Alanine Aminotransferase 29 U/L (7-40); Albumin 3.7 g/dL (3.2-4.8); Alkaline Phosphatase 61 U/L (46-116); Anion Gap 5 (5-15); Aspartate Aminotransferase 20 U/L (13-40); BUN/Creatinine Ratio 36.9 (10.0-20.0); Calcium 9.8 mg/dL (8.7-10.4); Chloride 100 mmol/L (98-107); Sodium 141 mmol/L (136-145); Total Protein 6.1 g/dL (5.7-8.2)
[2024-07-23 08:30] LABS: Bilirubin, Total 0.2 mg/dL (0.2-1.0); Blood Urea Nitrogen 24 mg/dL (9-23); Carbon Dioxide 36 mmol/L (20-31); Glucose 155 mg/dL (74-106)
[2024-07-23 08:32] LABS: Potassium 5.6 mmol/L (3.5-5.1)
[2024-07-23] MEDS: DEXTROSE (50%) 50ML SYRG IV ONE ×2 (08:45→10:45)
[2024-07-23] MEDS: ALBUTEROL SULF 2.5 MG/0.5ML(0.5%) NEB SOLN ONE (08:54)
[2024-07-23] MEDS: ALBUTEROL SULF 2.5 MG/0.5ML(0.5%) NEB SOLN NEB ONE (08:58)
[2024-07-23] MEDS: CALCIUM GLUC 1,000mg/50ml-NS 50 ML IV ONE (09:48)
[2024-07-23] MEDS: InsuLIN REG 1unit/0.01ml Soln (100units/ml) IV ONE (10:24)
[2024-07-23] MEDS: FUROSEMIDE 20 MG/2 ML VIAL IV ONE (10:26)
[2024-07-23] MEDS ORDERED: SODIUM BICARB 8.4% 50Meq/50ml SYR INJ IV ONE (10:45)
[2024-07-23] MEDS ORDERED: InsuLIN REG 1unit/0.01ml Soln (100units/ml) IV ONE (10:45)
[2024-07-23] MEDS: SODIUM ZIRCONIUM CYCL 10 GM PAK PO ONE (11:41)
[2024-07-23] MEDS ORDERED: PRED20TA2 PO (14:27)
[2024-07-23] MEDS ORDERED: DOX100T PO (14:27)
--- NOTE | 2024-07-23 14:48 | ECG ---
[facility] Test Date: 2024-07-23 Test Time: 09:32:57 Pat Name: ROSA MAIER Department: Res[facility]atoy Room: 0205T Gender: F [employer] Modeler: : [id number] Requested By: ROMÁN XIE Order Number: [id number] Reading MD: Abdulaziz Griggs Measurements Intervals [place] Rate: 115 P: 77 [place]: 115 QRS: 131 QRSD: 128 T: 51 QT: 336 QTc: 465 Interpretive Statements Sinus tachycardia Biatrial enlargement RBBB and LPFB Electronically Signed On 07-24-2024 12:27:10 PST by Abdulaziz Griggs Please click the below link to view image of tracing.
[2024-07-23 15:40] LABS: Base Excess 7.2 mmol/L (-2.0-3.0)
[2024-07-23 16:27] LABS: Base Excess 9.3 mmol/L (-2.0-3.0)
--- NOTE | 2024-07-23 16:55 | DVHSR ---
APPROVED REPORT EXAM: LIMITED Two-dimensional and M-mode echocardiogram with Doppler and color Doppler. Blood Pressure: 120/67 mmHg INDICATION SOB RISK FACTORS Height: 120, Weight: 67 DIMENSIONS EF (%) 55.0 (55-70%)Rt. Atrium (1.9-4.0cm)Asc. Aorta cm Mitral Valve MitralMitral Stenosis E/A ratio0.02D MVAcm2 Other Information Quality : Technically LimitedRhythm : Technically limited study due to PT laying on right side uncooperative in turning or laying on right side Conclusion very limited study valves not assessed lvef >60% by visual estimate tachycardia during study normal rv function left atrium enlarged pericardial fat pad noted
--- NOTE | 2024-07-23 18:03 | DVH ---
CHEST RADIOGRAPH Indication: Pneumonia Technique: Single frontal view of the chest was obtained Comparison: XY CHEST PORTABLE on DOS: 07/20/24, CHEST PORTABLE on DOS: 09/29/21, CHEST PORTABLE on DOS: 09/26/21 FINDINGS: Lines and Tubes: None Lungs: Bibasilar increased pulmonary densities left worse than right may represent airspace disease. Pleura: No effusion. No pneumothorax. Cardiomediastinal contours: Unremarkable Bones: No acute osseous abnormality. IMPRESSION: 1. Possible bibasilar airspace disease left worse than right.
[2024-07-23] MEDS: LEVALBUTEROL HCL 1.25 MG/3 ML NEB NEB SCH (18:12)
[2024-07-23] MEDS: ACETYLCYSTEINE 10 %(100MG/ML) SOL 4ML NEB SCH (18:12)
--- NOTE | 2024-07-23 18:59 | DVHPNRES ---
Progress Note Date Seen: Jul 23, 2024 Resident Creating Document: ROMÁN XIE CARLEE Has the PT tested + for MRSA If YES, has PT been informed?: No Medical Necessity Reason Pt with a Central, PICC or Fol: No Subjective Review of Systems A 69-year-old female with a history of lung cancer and COPD presented to the ED with worsening shortness of breath, hypoxia, and O2 saturation in the 60s on room air. EMS placed her on CPAP en route to the hospital. Lab results showed elevated troponin (12) and a positive urinalysis for UTI. Chest x-ray was clear. She was started on IV Rocephin and admitted for further evaluation and management. She denies chest pain, headache, dizziness, diarrhea, nausea, vomiting, fever, and chills. She lives at home and denies smoking, alcohol, or drug use. extremely poor historian. 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 Allergic history: Noncontributory Today, patient seen and examined at the bedside. Patient is feeling better since admission, but still complained of shortness of breathe. Objective vital signs Vital Sign Date Time Temp Pulse Resp B/P (MAP) Pulse Ox O2 Delivery O2 Flow Rate FiO2 07/23/24 18:20 100 18 100 07/23/24 18:12 Nasal Cannula 3.5 07/23/24 18:12 32 07/23/24 17:00 97.4 102/50 (67) 97.4 Total Intake and Output 07/22/24 07/22/24 07/23/24 15:00 23:00 07:00 Intake Total 50 ml 525 ml Balance 50 ml 525 ml medications Current Medications Medications Dose Ordered Sig/Timothy Route Start Time Stop Time Status Last Admin Dose Admin Aspirin 81 mg DAILY PO 07/21/24 10:00 07/23/24 10:35 81 MG Ipratropium [place] 0.5 mg Q4HPRN PRN NEB 07/20/24 19:45 07/23/24 18:12 0.5 MG Methylprednisolone Sodium Succinate 40 mg Q8HR IV 07/20/24 22:00 07/23/24 14:12 40 MG Famotidine 20 mg Q12HR IV 07/20/24 22:00 07/23/24 10:34 20 MG Ceftriaxone Sodium 50 ml @ 100 mls/hr DAILY@09 IV 07/21/24 09:00 07/23/24 11:29 100 MLS/HR Sodium Chloride 10 ml Q8HR IV 07/20/24 22:00 07/23/24 14:12 10 ML Acetaminophen/ Hydrocodone Bitart 1 tab Q4HP PRN PO 07/20/24 19:45 Ondansetron HCl 4 mg Q4HP PRN IV 07/20/24 19:45 Docusate Sodium 100 mg BIDPRN PRN PO 07/20/24 19:45 Acetaminophen 650 mg Q6HP PRN PO 07/20/24 19:45 Nitroglycerin 0.4 mg Q5MINP PRN SL 07/20/24 22:30 Morphine Sulfate 2 mg Q30M PRN IV 07/20/24 22:30 Azithromycin 500 mg DAILY PO 07/22/24 10:00 07/23/24 10:35 500 MG Vancomycin HCl 0 ml @ 0 mls/hr UD IV 07/21/24 11:30 Vancomycin HCl 250 ml @ 250 mls/hr Q16H IV 07/22/24 05:00 07/23/24 14:19 250 MLS/HR Enoxaparin Sodium 40 mg DAILY SC 07/22/24 10:00 07/23/24 10:36 40 MG Alprazolam 0.25 mg Q8HP PRN PO 07/21/24 23:30 07/23/24 17:43 0.25 MG Mupirocin 1 applic BID EACHNOSTRI 07/23/24 22:00 07/28/24 21:59 Acetylcysteine 100 mg Q4HR NEB 07/23/24 18:00 07/23/24 18:12 100 MG Levalbuterol HCl 0.625 mg Q4HR NEB 07/23/24 18:00 07/23/24 18:12 0.625 MG Examination General Appearance: Alert, Oriented X3, Cooperative, No acute distress HEENT: Atraumatic, PERRLA, EOMI, Mucous membrane moist/pink Respiratory: Bilateral rhonchi Cardiovascular: Regular rate, Normal S1, Normal S2, No murmurs, no chest wall tenderness Abdominal: Normal bowel sounds, Soft, No tenderness, No hepatospenomegaly, No masses Extremities: No clubbing, No cyanosis, No edema, Normal pulses, No tenderness/swelling Skin: No rashes, No breakdown, No significant lesion Neuro: Normal gait, Normal speech, Strength at 5/5 X4 ext, Normal tone, Sensation intact, Cranial nerves 3-12 NL, Reflexes 2+ Psych/Mental Status: Mental status NL, Mood NL laboratory and microbiology Laboratory Tests 07/23/24 12:35 07/23/24 06:39 Test 07/23/24 06:39 Range/Units Serum Glucose 155 H 74-106 mg/dL Microbiology Date/Time Source Procedure Growth Status 07/23/24 05:47 Nose MRSA Screen - Final Methicillin Resistant S.aureus Complete 07/22/24 18:15 Blood Blood Culture - Preliminary NO GROWTH AFTER 24 HOURS OF INCUBATION. Resulted 07/22/24 11:00 Voided Urine Urine Culture - Preliminary Resulted Labs and/or images reviewed: Labs reviewed by me, Image(s) reviewed by me Problem List/Assessment/Plan Problem List/Assessment/Plan A 69-year-old female with a history of lung cancer and COPD presented to the ED with worsening shortness of breath, hypoxia, and O2 saturation in the 60s on room air. On 07/20/2024 Acute on chronic hypoxic/hypercarbic respiratory failure, likely due to COPD exacerbation Acute COPD exacerbation (patient is on home oxygen 4 liters/minute through nasal cannula) Pneumonia, likely due to MRSA and Staphylococcus epidermidis Obstructive sleep apnea Chest x-ray shows hyperinflated lung with bilateral basilar infiltration MRSA nares screening is positive Blood culture shows Staphylococcus epidermidis Empiric Antibiotics azithromycin, ceftriaxone and vancomycin Continue nebulization with ipratropium and levalbuterol Injection methylprednisolone 40 mg b.i.d. Mupirocin for MRSA nares b.i.d. physical therapy evaluation Today, patient is shortness of breaths worsened, ABGs performed and shows pCO2 more than 60, and the patient was put on BiPAP BiPAP during the night Prediabetes, the patient consulted for healthy lifestyle including healthy food habits and physical activity for more than 23 minutes Current smoker, the patient was consulted for smoking cessation for more than 25 minutes Polycythemia vera, outpatient follow up Cocaine use disorder, the patient is consulted for cocaine cessation for more than 23 minutes Anxiety, tablet alprazolam p.r.n. q.8 hours UTI, unspecified location Urinalysis shows UTI picture IV antibiotic Urine culture DIET: Cardiac diet DVT PROPHYLAXIS: Lovenox GI PROPHYLAXIS:: Famotidine BOWEL REGIMEN: Colace as needed CODE STATUS: Goal of care discussed for more than 21 minutes, full code DISPOSITION: Med/Surg Patient's status discussed with the patient. Today, patient is shortness of breaths worsened, ABGs performed and shows pCO2 more than 60, and the patient was put on BiPAP Case discussed with Dr. Dorado Plan discussed with: Patient, Other (RN) My Orders My Orders Orders - ROMÁN XIE RESDIMELISSA Procedure Category Date Status Time * [place] CONS 07/23/24 Transmitted Consult 00:12 Admit ADMIT 07/23/24 Transmitted 00:12 Discharge DISCHARGE 07/23/24 Transmitted 10:34 Schedule For Dc BRANDYN 07/23/24 In Process Clinic F/U 10:34 Pt Request For Service PT 07/23/24 Logged 14:35 Chest Xray 1 View XY 07/23/24 Resulted 15:15 Abg W/ Co-Ox RT 07/23/24 Logged 15:15 Acetylcysteine PHA 07/23/24 In Process Inhalation 10% 18:00 Levalbuterol Hcl PHA 07/23/24 In Process (Xopenex Medneb) 18:00 BIPAP RT 07/23/24 Logged 16:00 Date of Service: Jul 23, 2024 Billing Provider: DWAYNE LLANES MD Common Visit Codes: [id number] INP/OBS CARE(HIGH) ROMÁN XIE RESDIENT Jul 23, 2024 18:59 DWAYNE LLANES MD Jul 24, 2024 09:34
[2024-07-23] MEDS: MUPIROCIN 2% OINT 15gm or 22gm FOR MRSA NARES EACHNOSTRI SCH (22:04)
[2024-07-23] MEDS: hydrOXYzine 25 MG TAB or CAP PO ONE (22:40)
[2024-07-23] MEDS: methylPREDNISolone SOD SUCC 40 MG/ML VL IV SCH (22:40)
[2024-07-23] MEDS: guaiFENesin-CODEINE Liq 5 ML UD GT PRN (22:46)
--- NOTE | 2024-07-23 23:19 | DVHPN2 ---
Progress Note - Dictate Date Seen: Jul 23, 2024 Has the PT tested + for MRSA If YES, has PT been informed?: No Medical Necessity Reason Pt with a Central, PICC or Fol: Yes The following are medically ne: Wiley Catheter Reason for wiley catheter: Strict I&O Subjective Patient seen and examined at bedside. Remains on supplemental oxygen Overnight events reviewed. vital signs Vital Sign Date Time Temp Pulse Resp B/P (MAP) Pulse Ox O2 Delivery O2 Flow Rate FiO2 07/23/24 22:20 100 18 100 07/23/24 22:12 Nasal Cannula* 3 32 07/23/24 17:00 97.4 102/50 (67) 97.4 Total Intake and Output 07/22/24 07/22/24 07/23/24 15:00 23:00 07:00 Intake Total 50 ml 525 ml Balance 50 ml 525 ml medications Current Medications Medications Dose Ordered Sig/Timothy Route Start Time Stop Time Status Last Admin Dose Admin Aspirin 81 mg DAILY PO 07/21/24 10:00 07/23/24 10:35 81 MG Ipratropium [place] 0.5 mg Q4HPRN PRN NEB 07/20/24 19:45 07/23/24 18:12 0.5 MG Famotidine 20 mg Q12HR IV 07/20/24 22:00 07/23/24 22:04 20 MG Ceftriaxone Sodium 50 ml @ 100 mls/hr DAILY@09 IV 07/21/24 09:00 07/23/24 11:29 100 MLS/HR Sodium Chloride 10 ml Q8HR IV 07/20/24 22:00 07/23/24 22:03 10 ML Acetaminophen/ Hydrocodone Bitart 1 tab Q4HP PRN PO 07/20/24 19:45 Ondansetron HCl 4 mg Q4HP PRN IV 07/20/24 19:45 Docusate Sodium 100 mg BIDPRN PRN PO 07/20/24 19:45 Acetaminophen 650 mg Q6HP PRN PO 07/20/24 19:45 Nitroglycerin 0.4 mg Q5MINP PRN SL 07/20/24 22:30 Morphine Sulfate 2 mg Q30M PRN IV 07/20/24 22:30 Azithromycin 500 mg DAILY PO 07/22/24 10:00 07/23/24 10:35 500 MG Vancomycin HCl 0 ml @ 0 mls/hr UD IV 07/21/24 11:30 Vancomycin HCl 250 ml @ 250 mls/hr Q16H IV 07/22/24 05:00 07/23/24 14:19 250 MLS/HR Enoxaparin Sodium 40 mg DAILY SC 07/22/24 10:00 07/23/24 10:36 40 MG Alprazolam 0.25 mg Q8HP PRN PO 07/21/24 23:30 07/23/24 17:43 0.25 MG Mupirocin 1 applic BID EACHNOSTRI 07/23/24 22:00 07/28/24 21:59 07/23/24 22:04 1 APPLIC Acetylcysteine 100 mg Q4HR NEB 07/23/24 18:00 07/23/24 22:12 100 MG Levalbuterol HCl 0.625 mg Q4HR NEB 07/23/24 18:00 07/23/24 22:12 0.625 MG Guaifenesin/ Codeine Phosphate 5 ml Q4HPRN PRN GT 07/23/24 19:15 07/23/24 22:46 5 ML Methylprednisolone Sodium Succinate 40 mg Q12HR IV 07/23/24 22:00 07/23/24 22:40 40 MG Hydroxyzine Pamoate 25 mg BID PO 07/24/24 10:00 objective Gen.: Patient lying in bed in no apparent distress. On supplemental oxygen. Head: Normocephalic, atraumatic. Eyes: EOMI/PERRLA. Ears: Normal hearing. Normal anatomy. Neck/trachea: Trachea midline, supple. Nose: Normal external anatomy. Mouth: Moist mucous membranes. Chest: Decreased air entry bilaterally. No wheezing or rhonchi. Cardiovascular: Positive S1, positive S2. Regular rate and rhythm. Abdomen: Positive bowel sounds in all 4 quadrants. Soft, non-tender, non- distended. : Deferred. Rectal: Deferred. Skin: Warm, dry. Intact. Extremities: 2+ radial pulses bilaterally. No lower extremity edema. Neuro: Awake, alert, oriented x3. No gross motor or sensory deficits. Cranial nerves II through XII intact. Gait not assessed. laboratory and microbiology Laboratory Tests 07/23/24 12:35 07/23/24 06:39 Test 07/23/24 06:39 Range/Units Serum Glucose 155 H 74-106 mg/dL Assessment/Plan Impression: Acute hypoxic respiratory failure COPD with acute exacerbation Acute respiratory distress Elevated D-dimer Urinary tract infection Generalized weakness Events: Remains on supplemental oxygen, 3 LPM NC Taper O2 as tolerated Improved O2 requirements Tamiflu course Continue bronchodilators/Mucomyst Continue IV steroids - tapered frequency to q.12 hours Continue antibiotics Incentive spirometry Labs and imaging reviewed. Rest of plan as noted below. Plan: Supplemental oxygen Titrate to keep O2 sats above 92%. Continue bronchodilators. Continue antibiotics IV steroids Xanax 0.25 mg PO q.8 hours PRN anxiety. Pain control Avoid oversedation Monitor renal function. Monitor electrolytes. Supplement as necessary. Monitor ins and outs. DVT prophylaxis. Prognosis: Poor given patient's multiple co-morbidities. Rest of plan per hospitalist and other consultants. Thank you Dr. Armendariz for allowing me to participate in this patient's care. Further recommendations will depend on the patient's clinical course. Please do not hesitate to contact me if you have any questions or concerns. This medical document was created using an electronic medical record system with [employer] dictation system. Although these documentations are being carefully reviewed, there may still be some phonetic and typographical changes. The errors are purely typographical, due to imperfection on the software program, and do not reflect any compromise in the patient's medical care. Plan discussed with: Patient, Other (YARELY Harding) PATRIZIA MEDINA MD Jul 23, 2024 23:18
[2024-07-24] VITALS (23 sets, daily range): BP systolic 94–139; BP diastolic 38–107; PULSE 64–120; RESP 16–22; TEMP 36.9; O2SAT 88–97
[2024-07-24 06:10] LABS: Basophils # (auto) 0 10 ^3/uL (0-0.2); Basophils % (auto) 0.1 % (0.0-2.0); Eosinophils # (auto) 0 10 ^3/uL (0-0.8); Hematocrit 47.4 % (36.0-46.0); Hemoglobin 15.8 g/dL (12.2-16.2); Lymphocytes # (auto) 0.4 10 ^3/uL (0.4-5.4); Lymphocytes % (auto) 4.7 % (10.0-50.0); Mean Corpuscular Hemoglobin 31.1 pg (28.0-32.0); Mean Corpuscular Hgb Conc. 33.4 g/dL (32.0-36.0); Mean Corpuscular Volume 93.2 fL (80.0-100.0); Monocytes # (auto) 0.6 10 ^3/uL (0-1.3); Monocytes % (auto) 7.9 % (0.0-12.0); Neutrophils # (auto) 6.8 10 ^3/uL (1.6-8.6); Neutrophils % (auto) 87.3 % (37.0-80.0); Nucleated Red Blood Cells % 0.1 %; Platelet Count (auto) 307 10^3/uL (140-450); Red Blood Cells 5.08 10^6/uL (4.0-5.20); Red Cell Distribution Width 13.6 % (11.8-14.3); White Blood Cell 7.8 10^3/uL (4.4-10.8)
[2024-07-24 06:32] LABS: Alanine Aminotransferase 29 U/L (7-40); Alkaline Phosphatase 61 U/L (46-116); Anion Gap 3 (5-15); BUN/Creatinine Ratio 29.6 (10.0-20.0); Blood Urea Nitrogen 21 mg/dL (9-23); Chloride 98 mmol/L (98-107); Potassium 4.7 mmol/L (3.5-5.1); Sodium 138 mmol/L (136-145)
[2024-07-24 06:33] LABS: Albumin 3.9 g/dL (3.2-4.8); Total Protein 6.1 g/dL (5.7-8.2)
[2024-07-24 06:39] LABS: Aspartate Aminotransferase 11 U/L (13-40); Bilirubin, Total 0.2 mg/dL (0.2-1.0); Carbon Dioxide 37 mmol/L (20-31); Glucose 208 mg/dL (74-106)
[2024-07-24] MEDS: hydrOXYzine 25 MG TAB or CAP PO SCH (09:53)
--- NOTE | 2024-07-24 14:31 | DVHDSRES ---
Discharge Summary Date of Admission Resident Creating Document: ROMÁN XIE RESDIENT Jul 20, 2024 at 22:27 Date of Discharge: Jul 24, 2024 Admitting Diagnosis COPD with acute exacerbation Wounds: Labs/Diagnostic Data: Laboratory Results Test 07/24/24 05:04 07/23/24 16:18 07/23/24 15:24 07/23/24 13:16 White Blood Count 7.8 10^3/uL (4.4-10.8) Red Blood Count 5.08 10^6/uL (4.0-5.20) Hemoglobin 15.8 g/dL (12.2-16.2) Hematocrit 47.4 % (36.0-46.0) Mean Corpuscular Volume 93.2 fL (80.0-100.0) Mean Corpuscular Hemoglobin 31.1 pg (28.0-32.0) Mean Corpuscular Hemoglobin Concent 33.4 g/dL (32.0-36.0) Red Cell Distribution Width 13.6 % (11.8-14.3) Platelet Count 307 10^3/uL (140-450) Mean Platelet Volume 8.5 fL (6.9-10.8) Neutrophils (%) (Auto) 87.3 % (37.0-80.0) Lymphocytes (%) (Auto) 4.7 % (10.0-50.0) Monocytes (%) (Auto) 7.9 % (0.0-12.0) Eosinophils (%) (Auto) 0.0 % (0.0-7.0) Basophils (%) (Auto) 0.1 % (0.0-2.0) Neutrophils # (Auto) 6.8 10 ^3/uL (1.6-8.6) Lymphocytes # (Auto) 0.4 10 ^3/uL (0.4-5.4) Monocytes # (Auto) 0.6 10 ^3/uL (0-1.3) Eosinophils # (Auto) 0 10 ^3/uL (0-0.8) Basophils # (Auto) 0 10 ^3/uL (0-0.2) Nucleated Red Blood Cells 0.1 % Sodium Level 138 mmol/L (136-145) Potassium Level 4.7 mmol/L (3.5-5.1) Chloride Level 98 mmol/L (98-107) Carbon Dioxide Level 37 mmol/L (20-31) Anion Gap 3 (5-15) Blood Urea Nitrogen 21 mg/dL (9-23) Creatinine 0.71 mg/dL (0.550-1.02) Glomerular Filtration Rate Calc 93 mL/min (>90) BUN/Creatinine Ratio 29.6 (10.0-20.0) Serum Glucose 208 mg/dL (74-106) Calcium Level 10.0 mg/dL (8.7-10.4) Total Bilirubin 0.2 mg/dL (0.2-1.0) Aspartate Amino Transferase (AST) 11 U/L (13-40) Alanine Aminotransferase (ALT) 29 U/L (7-40) Alkaline Phosphatase 61 U/L (46-116) Total Protein 6.1 g/dL (5.7-8.2) Albumin 3.9 g/dL (3.2-4.8) Blood Gas Specimen Type Arterial Blood Gas Sample Site Left radial Blood Gas Patient Temperature 37.0 Arterial Blood Date Drawn [id number] Arterial Blood pH 7.399 (7.350-7.450) Arterial Blood Partial Pressure CO2 61.3 mmHg (32.0-45.0) Arterial Blood Partial Pressure O2 73.8 mmHg (83.0-108.0) Arterial Blood HCO3 37.0 mmol/L (21.0-28.0) Arterial Blood Oxygen Saturation 94.4 % (94.0-98.0) Arterial Blood Base Excess 9.3 mmol/L (-2.0-3.0) Arterial Blood Oxyhemoglobin 93.3 % (94.0-98.0) Arterial Blood Carboxyhemoglobin 0.9 % (0.5-1.5) Arterial Blood Methemoglobin 0.3 % (0.0-1.5) Ga Test Yes Blood Gas Total Hemoglobin 16.90 g/dL (12.0-16.0) Blood Gas Modality Mask - bipap FiO2 % 35.0 Blood Gas Pressure Support 7 Blood Gas EPAP 5 Blood Gas IPAP 12 Blood Gas Critical Value Read Back Yes Blood Gas Notified Whom Hodan garcia md Blood Gas Notified Time [id number] Blood Gas Notified By Jyoti durbin manuscript reader Blood Gas Liter Flow 8.00 Vancomycin Level Trough 13.9 ug/mL (5-10) Test 07/22/24 11:00 07/21/24 17:50 07/20/24 17:11 07/20/24 16:55 Urine Opiates Screen Neg (NEGATIVE) Urine Fentanyl Screen Neg (NEGATIVE) Urine Barbiturates Screen Neg (NEGATIVE) Urine Phencyclidine Screen Neg (NEGATIVE) Urine Amphetamines Screen Neg (NEGATIVE) Urine Benzodiazepines Screen Neg (NEGATIVE) Urine Cocaine Screen Pos (NEGATIVE) Urine Cannabinoids Screen Neg (NEGATIVE) SARS-CoV-2 Antigen (Rapid) Negative (NEGATIVE) Urine Color Yellow (Yellow) Urine Clarity Turbid (Clear) Urine pH 6.0 (5.0-9.0) Urine Specific [place] 1.022 (1.001-1.035) Urine Protein 2+ (Negative) Urine Ketones Trace (Negative) Urine Blood Trace /uL (Negative) Urine Nitrite Negative (Negative) Urine Bilirubin Negative (Negative) Urine Urobilinogen 3 mg/dL (Negative) Urine Leukocyte Esterase 3+ /uL (Negative) Urine RBC 6 /hpf (0 - 4) Urine WBC 101 /hpf (0 - 5) Urine Squamous Epithelial Cells Few /hpf (<5) Urine Bacteria Many /hpf (None Seen) Urine Hyaline Casts Many /lpf (0 - 2) Urine Mucus Few (None Seen) Urine Glucose Normal mg/dL (Normal) Lactic Acid Level 1.3 mmol/L (0.4-2.0) Troponin I High Sensitivity 19 ng/L (</=34) Test 07/20/24 16:38 07/20/24 15:23 07/20/24 14:17 Blood Gas Set Respiration Rate 16.0 Blood Gas Spontaneous Rate 20 Influenza Type A Antigen Negative (Negative) Influenza Type B Antigen Negative (Negative) D-Dimer, Quantitative 1.78 mg/L FEU (0.0-0.49) Hemoglobin A1c 6.1 % A1C (<5.7) Magnesium Level 2.0 mg/dL (1.6-2.6) B-Type Natriuretic Peptide 61.38 pg/mL (0-100) Other Laboratory Tests 07/24/24 05:04 Brief Hx & Hospital Course: A 69-year-old female with a history of COPD presented to the ED with worsening shortness of breath, hypoxia, and O2 saturation in the 60s on room air. EMS placed her on CPAP en route to the hospital. Lab results showed elevated troponin (12) and a positive urinalysis for UTI, while the chest x-ray was clear. She was started on IV Rocephin and admitted for further evaluation and management. She denies chest pain, headache, dizziness, diarrhea, nausea, vomiting, fever, and chills. She lives at home, denies smoking, alcohol, or drug use, and is an extremely poor historian. 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 Social history reveals she is an ex-smoker with a 50 pack-year history. She lives with her boyfriend, is wheelchair-bound, and is a cocaine user, but denies any other drug use. Hospital course: Chest x-ray shows hyperinflated lung with bilateral basilar infiltration, MRSA nares was positive, and blood culture shows Staphylococcus epidermidis. The patient was put on acute on chronic hypoxic respiratory failure likely due to COPD exacerbation/pneumonia MRSA, and given IV antibiotics of azithromycin, ceftriaxone and vancomycin, nebulized with ipratropium and albuterol, given injection methylprednisolone, mupirocin for the nares. During hospital admission due to worsening of shortness of breaths and respiratory acidosis (based on ABGs), the patient was also put on BiPAP. Patient is also current smoker and UDS showed positive cocaine, the patient was counseled for the smoking cocaine cessation. Physical therapy performed, based on physical evaluation recommended frontal gustavo. Urinalysis showed UTI picture, which was treated with IV antibiotic. On 07/24, the patient was feeling better since admission. Patient was clinically and hemodynamically stable, discharge plan discussed with the patient and the patient was discharged. Discharge plan: follow up with the PCP within 1 week after discharge. Follow up with the pulmonology on outpatient basis. Follow up with the Oncology/Hematology on outpatient basis for polycythemia vera Tablet prednisone 40 mg for 5 more days Callie b.i.d. for 5 more days Operations or Procedures [address] [address] Ph: [phone] DIAGNOSTIC IMAGING Diagnostic Imaging Report : [id number] Signed PATIENT: ROSA MAIER LUIGICCT: [id number] UNIT: [id number] : 1955 LOC: TELE ROOM / BED: 1009-ERT / A AGE / SEX: 69 / F ADM STATUS: ADM IN SERVICE 1641 ORDERING PHYSICIAN: KARI FERRELL RESIDENT PROCEDURE(s): CTACH - CT ANGIO CHEST CONTRAST REASON: Elevated d-dimer ORDER NUMBER(s): [id number], ACCESSION NUMBER(s): [id number] Procedure: CT CT ANGIO CHEST CONTRAST Reason for study/Clinical History: Elevated d-dimer Comparison Study: None available at time of dictation. Exam Date: 07/21/2024 07:09 PM Radiation Dose Information: CT Dose: CTDI volume is 27.57 mGy. Dose-length product is 714.97 mGy*cm Contrast: Type of contrast: Omnipaque 350 Contrast inject: 100 mL Contrast wasted:0 TECHNIQUE: After the uneventful administration of intravenous contrast intravenously, CT imaging was performed through the chest. Coronal and sagittal reformations were performed by the technologist. Patient was scanned in a right lateral position for pulmonary embolus. FINDINGS: Lower Neck: Visualized portions of the thyroid gland are unremarkable. Aorta and Vasculature: Normal caliber of thoracic aorta. Lymph Nodes: No enlarged intrathoracic lymph nodes. Mediastinum: Heart size is normal. There is no pericardial effusion. The esophagus is unremarkable. Lungs: No focal consolidation, pleural effusion or significant pneumothorax. No suspicious pulmonary nodule or mass. Musculoskeletal: No acute osseous abnormality. Upper abdomen: Limited portions of the upper abdomen are unremarkable. Multiple cystic lesions in both kidneys with a partially calcified hypodense mass upper pole left kidney. Tissue density is 3.7 hounsfield units which is cystic. IMPRESSION: 1. No findings of pulmonary emboli or pulmonary artery hypertension. Partially calcified cyst upper pole left kidney unchanged from 09/26/2021. All CT scans at this medical facility are performed using dose modulation techniques as appropriate to a performed exam including the following: Automated exposure control was utilized; adjustment of the MA and/or KV according to patient size; and use of iterative reconstruction technique. HS:Y ATED BY: DEMETRIO DENNY Jr., DO DICTATED DATE/TIME: 07/21/241939 SIGNED BY: DEMETRIO DENNY Jr., SIGNED DATE/TIME: 07/21/241939 CC: [address], [place] - [address] Ph: [phone] DIAGNOSTIC IMAGING Diagnostic Imaging Report : [id number] Signed PATIENT: ROSA MAIERCCT: [id number] UNIT: [id number] : 1955 LOC: [facility] AGE / SEX: 69 / F ADM STATUS: ADM IN SERVICE 1515 ORDERING PHYSICIAN: ROMÁN XIE PROCEDURE(s): CXR1 - CHEST XRAY 1 VIEW REASON: Pneumonia ORDER NUMBER(s): [id number], ACCESSION NUMBER(s): [id number] CHEST RADIOGRAPH Indication: Pneumonia Technique: Single frontal view of the chest was obtained Comparison: XY CHEST PORTABLE on DOS: 07/20/24, CHEST PORTABLE on DOS: 09/29/21, CHEST PORTABLE on DOS: 09/26/21 FINDINGS: Lines and Tubes: None Lungs: Bibasilar increased pulmonary densities left worse than right may represent airspace disease. Pleura: No effusion. No pneumothorax. Cardiomediastinal contours: Unremarkable Bones: No acute osseous abnormality. IMPRESSION: 1. Possible bibasilar airspace disease left worse than right. ATED BY: DEMETRIO DENNY Jr., DO DICTATED DATE/TIME: 07/23/241800 SIGNED BY: DEMETRIO DENNY Jr., SIGNED DATE/TIME: 07/23/241800 CC: Condition at Discharge: Fair Final Diagnosis/Problems List Acute on chronic hypoxic/hypercarbic respiratory failure, likely due to COPD exacerbation Acute COPD exacerbation (patient is on home oxygen 4 liters/minute through nasal cannula) Pneumonia, likely due to MRSA and Staphylococcus epidermidis Sepsis, likely due to pneumonia/UTI Obstructive sleep apnea Prediabetes Current smoker Polycythemia vera Cocaine use disorder Anxiety, UTI, unspecified location Elevated D-dimer Ruled out pulmonary emboli Hyperkalemia Prediabetes Discharge Disposition: Home Discharge Instruct/Medications Diet: Cardiac 2g Na,low cholest Activity: No Restrictions, As Tolerated Follow Up/Referral: Follow up with the PCP within 1 week after discharge. Follow up with the pulmonology on outpatient basis. Follow up with the Oncology/Hematology for the polycythemia vera Follow up with the discharge Clinic within 1 week after discharge Medications: Tablet prednisone 40 mg for 3 more days daily Tablet doxycycline 100 mg b.i.d. for 5 days Continue home medicine Discharge Statement: "Patient was advised to return to the ER or call 911 if any headaches, dizziness, shortness of breath, chest pain, abdominal pain, bleeding, fevers, or worsening of medical condition. Patient was counseled about treatment plan, medications, possible side effects, patientverbalized understanding. All questions were answered to the best of my ability. This discharge took greater then 30 minutes in planning, reviewing documentation, counseling the patient, and discussing with other team members." ASSESSMENT ASSESSMENT Assessment Acute on chronic hypoxic respiratory failure likely due to COPD exacerbation Date of Service: Jul 24, 2024 Billing Provider: DWAYNE LLANES MD Common Visit Codes: 77158-EBJ/OBS DISCH DAY >30min ROMÁN XIE RESDIENT Jul 24, 2024 14:31 DWAYNE LLANES MD Jul 25, 2024 09:50
--- NOTE | 2024-07-24 20:05 | DVHPN2 ---
Progress Note - Dictate Date Seen: Jul 24, 2024 Has the PT tested + for MRSA If YES, has PT been informed?: No Medical Necessity Reason Pt with a Central, PICC or Fol: Yes The following are medically ne: Wiley Catheter Reason for wiley catheter: Strict I&O Subjective Patient seen and examined at bedside. Remains on supplemental oxygen Overnight events reviewed. vital signs Vital Sign Date Time Temp Pulse Resp B/P (MAP) Pulse Ox O2 Delivery O2 Flow Rate FiO2 07/24/24 18:52 109 20 95 07/24/24 18:46 Nasal Cannula* 4 36 07/24/24 17:00 98.0 98/38 (58) 98.0 Total Intake and Output 07/23/24 07/23/24 07/24/24 15:00 23:00 07:00 Intake Total 520 ml 710 ml 550 ml Output Total 1250 ml 1250 ml Balance 520 ml -540 ml -700 ml medications Current Medications Medications Dose Ordered Sig/Timothy Route Start Time Stop Time Status Last Admin Dose Admin Aspirin 81 mg DAILY PO 07/21/24 10:00 07/24/24 09:54 81 MG Ipratropium [place] 0.5 mg Q4HPRN PRN NEB 07/20/24 19:45 07/24/24 18:46 0.5 MG Famotidine 20 mg Q12HR IV 07/20/24 22:00 07/24/24 09:54 20 MG Ceftriaxone Sodium 50 ml @ 100 mls/hr DAILY@09 IV 07/21/24 09:00 07/24/24 09:55 100 MLS/HR Sodium Chloride 10 ml Q8HR IV 07/20/24 22:00 07/24/24 14:00 10 ML Acetaminophen/ Hydrocodone Bitart 1 tab Q4HP PRN PO 07/20/24 19:45 Ondansetron HCl 4 mg Q4HP PRN IV 07/20/24 19:45 Docusate Sodium 100 mg BIDPRN PRN PO 07/20/24 19:45 Acetaminophen 650 mg Q6HP PRN PO 07/20/24 19:45 Nitroglycerin 0.4 mg Q5MINP PRN SL 07/20/24 22:30 Morphine Sulfate 2 mg Q30M PRN IV 07/20/24 22:30 Azithromycin 500 mg DAILY PO 07/22/24 10:00 07/24/24 09:53 500 MG Vancomycin HCl 0 ml @ 0 mls/hr UD IV 07/21/24 11:30 Vancomycin HCl 250 ml @ 250 mls/hr Q16H IV 07/22/24 05:00 07/24/24 05:33 250 MLS/HR Enoxaparin Sodium 40 mg DAILY SC 07/22/24 10:00 07/24/24 09:55 40 MG Alprazolam 0.25 mg Q8HP PRN PO 07/21/24 23:30 07/23/24 17:43 0.25 MG Mupirocin 1 applic BID EACHNOSTRI 07/23/24 22:00 07/28/24 21:59 07/24/24 10:08 1 APPLIC Levalbuterol HCl 0.625 mg Q4HR NEB 07/23/24 18:00 07/24/24 18:46 0.625 MG Methylprednisolone Sodium Succinate 40 mg Q12HR IV 07/23/24 22:00 07/24/24 09:54 40 MG Hydroxyzine Pamoate 25 mg BID PO 07/24/24 10:00 07/24/24 09:53 25 MG objective Gen.: Patient lying in bed in no apparent distress. On supplemental oxygen. Head: Normocephalic, atraumatic. Eyes: EOMI/PERRLA. Ears: Normal hearing. Normal anatomy. Neck/trachea: Trachea midline, supple. Nose: Normal external anatomy. Mouth: Moist mucous membranes. Chest: Decreased air entry bilaterally. No wheezing or rhonchi. Cardiovascular: Positive S1, positive S2. Regular rate and rhythm. Abdomen: Positive bowel sounds in all 4 quadrants. Soft, non-tender, non- distended. : Deferred. Rectal: Deferred. Skin: Warm, dry. Intact. Extremities: 2+ radial pulses bilaterally. No lower extremity edema. Neuro: Awake, alert, oriented x3. No gross motor or sensory deficits. Cranial nerves II through XII intact. Gait not assessed. laboratory and microbiology Laboratory Tests 07/24/24 05:04 Test 07/24/24 05:04 Range/Units Serum Glucose 208 H 74-106 mg/dL Assessment/Plan Impression: Acute hypoxic respiratory failure COPD with acute exacerbation Acute respiratory distress Elevated D-dimer Urinary tract infection Generalized weakness Events: Remains on supplemental oxygen, 4 LPM NC Taper O2 as tolerated Tamiflu course Continue bronchodilators/Mucomyst Continue IV steroids q.12 hours Continue antibiotics Incentive spirometry Disposition per hospitalist. Labs and imaging reviewed. Rest of plan as noted below. Plan: Supplemental oxygen Titrate to keep O2 sats above 92%. Continue bronchodilators. Continue antibiotics IV steroids Xanax 0.25 mg PO q.8 hours PRN anxiety. Pain control Avoid oversedation Monitor renal function. Monitor electrolytes. Supplement as necessary. Monitor ins and outs. DVT prophylaxis. Prognosis: Poor given patient's multiple co-morbidities. Rest of plan per hospitalist and other consultants. Thank you Dr. Armendariz for allowing me to participate in this patient's care. Further recommendations will depend on the patient's clinical course. Please do not hesitate to contact me if you have any questions or concerns. This medical document was created using an electronic medical record system with [employer] dictation system. Although these documentations are being carefully reviewed, there may still be some phonetic and typographical changes. The errors are purely typographical, due to imperfection on the software program, and do not reflect any compromise in the patient's medical care. Plan discussed with: Patient, Other (YARELY Fernandez) PATRIZIA MEDINA MD Jul 24, 2024 20:05
[2024-07-25] VITALS (11 sets, daily range): BP systolic 110–156; BP diastolic 69–79; PULSE 65–105; RESP 17–20; TEMP 98.4–98.5; O2SAT 90–99
[2024-07-25 07:40] LABS: Basophils # (auto) 0 10 ^3/uL (0-0.2); Basophils % (auto) 0.1 % (0.0-2.0); Eosinophils # (auto) 0 10 ^3/uL (0-0.8); Hematocrit 48.9 % (36.0-46.0); Hemoglobin 16.2 g/dL (12.2-16.2); Lymphocytes # (auto) 0.4 10 ^3/uL (0.4-5.4); Lymphocytes % (auto) 4.9 % (10.0-50.0); Mean Corpuscular Hemoglobin 30.9 pg (28.0-32.0); Mean Corpuscular Hgb Conc. 33.2 g/dL (32.0-36.0); Mean Corpuscular Volume 93.1 fL (80.0-100.0); Monocytes # (auto) 0.7 10 ^3/uL (0-1.3); Monocytes % (auto) 7.9 % (0.0-12.0); Neutrophils # (auto) 7.8 10 ^3/uL (1.6-8.6); Neutrophils % (auto) 87.1 % (37.0-80.0); Nucleated Red Blood Cells % 0.1 %; Platelet Count (auto) 306 10^3/uL (140-450); Red Blood Cells 5.25 10^6/uL (4.0-5.20); Red Cell Distribution Width 13.5 % (11.8-14.3); White Blood Cell 8.9 10^3/uL (4.4-10.8)
[2024-07-25 07:49] LABS: Albumin 3.9 g/dL (3.2-4.8); Alkaline Phosphatase 68 U/L (46-116); Anion Gap 4 (5-15); BUN/Creatinine Ratio 27.9 (10.0-20.0); Blood Urea Nitrogen 19 mg/dL (9-23); Chloride 99 mmol/L (98-107); Potassium 4.9 mmol/L (3.5-5.1); Sodium 140 mmol/L (136-145)
[2024-07-25 07:50] LABS: Aspartate Aminotransferase 20 U/L (13-40); Total Protein 6.3 g/dL (5.7-8.2)
[2024-07-25 07:52] LABS: Alanine Aminotransferase 43 U/L (7-40); Bilirubin, Total 0.3 mg/dL (0.2-1.0); Carbon Dioxide 37 mmol/L (20-31); Glucose 179 mg/dL (74-106)
--- NOTE | 2024-07-25 19:00 | DVHPNRES ---
Progress Note Date Seen: Jul 25, 2024 Resident Creating Document: ROMÁN XIE CARLEE Has the PT tested + for MRSA If YES, has PT been informed?: No Medical Necessity Reason Pt with a Central, PICC or Fol: Yes The following are medically ne: Wiley Catheter Reason for wiley catheter: Strict I&O Subjective Review of Systems A 69-year-old female with a history of lung cancer and COPD presented to the ED with worsening shortness of breath, hypoxia, and O2 saturation in the 60s on room air. EMS placed her on CPAP en route to the hospital. Lab results showed elevated troponin (12) and a positive urinalysis for UTI. Chest x-ray was clear. She was started on IV Rocephin and admitted for further evaluation and management. She denies chest pain, headache, dizziness, diarrhea, nausea, vomiting, fever, and chills. She lives at home and denies smoking, alcohol, or drug use. extremely poor historian. 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 Allergic history: Noncontributory Today, patient seen and examined at the bedside. Patient is feeling better since admission, but still complained of shortness of breathe. Patient reports: No new complaints, Feels better Changes from previous H/P or p: Changes Objective vital signs Vital Sign Date Time Temp Pulse Resp B/P (MAP) Pulse Ox O2 Delivery O2 Flow Rate FiO2 07/25/24 13:29 98.4 105 20 110/73 (85) 93 98.4 07/25/24 08:11 Nasal Cannula 4.0 07/25/24 08:11 36 Total Intake and Output 07/24/24 07/24/24 07/25/24 15:00 23:00 07:00 Intake Total 900 ml 400 ml Output Total 950 ml Balance -50 ml 400 ml Examination General Appearance: Alert, Oriented X3, Cooperative, No acute distress HEENT: Atraumatic, PERRLA, EOMI, Mucous membrane moist/pink Respiratory: Bilateral rhonchi Cardiovascular: Regular rate, Normal S1, Normal S2, No murmurs, no chest wall tenderness Abdominal: Normal bowel sounds, Soft, No tenderness, No hepatospenomegaly, No masses Extremities: No clubbing, No cyanosis, No edema, Normal pulses, No tenderness/swelling Skin: No rashes, No breakdown, No significant lesion Neuro: Normal gait, Normal speech, Strength at 5/5 X4 ext, Normal tone, Sensation intact, Cranial nerves 3-12 NL, Reflexes 2+ Psych/Mental Status: Mental status NL, Mood NL laboratory and microbiology Laboratory Tests 07/25/24 06:49 Test 07/25/24 06:49 Range/Units Serum Glucose 179 H 74-106 mg/dL Microbiology Date/Time Source Procedure Growth Status 07/23/24 05:47 Nose MRSA Screen - Final Methicillin Resistant S.aureus Complete 07/22/24 18:15 Blood Blood Culture - Preliminary NO GROWTH AFTER 72 HOURS OF INCUBATION. Resulted 07/22/24 11:00 Voided Urine Urine Culture - Final Complete Labs and/or images reviewed: Labs reviewed by me, Image(s) reviewed by me Problem List/Assessment/Plan Problem List/Assessment/Plan A 69-year-old female with a history of lung cancer and COPD presented to the ED with worsening shortness of breath, hypoxia, and O2 saturation in the 60s on room air. On 07/20/2024 Acute on chronic hypoxic/hypercarbic respiratory failure, likely due to COPD exacerbation Acute COPD exacerbation (patient is on home oxygen 4 liters/minute through nasal cannula) Pneumonia, likely due to MRSA and Staphylococcus epidermidis Obstructive sleep apnea Chest x-ray shows hyperinflated lung with bilateral basilar infiltration MRSA nares screening is positive Blood culture shows Staphylococcus epidermidis Empiric Antibiotics azithromycin, ceftriaxone and vancomycin Continue nebulization with ipratropium and levalbuterol Injection methylprednisolone 40 mg b.i.d. Mupirocin for MRSA nares b.i.d. physical therapy evaluation Today, patient is shortness of breaths worsened, ABGs performed and shows pCO2 more than 60, and the patient was put on BiPAP BiPAP during the night Prediabetes, the patient consulted for healthy lifestyle including healthy food habits and physical activity for more than 23 minutes Current smoker, the patient was consulted for smoking cessation for more than 25 minutes Polycythemia vera, outpatient follow up Cocaine use disorder, the patient is consulted for cocaine cessation for more than 23 minutes Anxiety, tablet alprazolam p.r.n. q.8 hours UTI, unspecified location Urinalysis shows UTI picture IV antibiotic Urine culture DIET: Cardiac diet DVT PROPHYLAXIS: Lovenox GI PROPHYLAXIS:: Famotidine BOWEL REGIMEN: Colace as needed CODE STATUS: Goal of care discussed for more than 21 minutes, full code DISPOSITION: Med/Surg Patient's status discussed with the patient. Patient was discharged yesterday, due to transportation problems the patient was stayed at hospital, patient discharged to home today Case discussed with Dr. Dorado Plan discussed with: Patient, Other (RN) My Orders My Orders Orders - ROMÁN XIE Procedure Category Date Status Time Bipap/Cpap For Sleep RT 07/25/24 Logged Apnea 01:53 * [employer] CONS 07/25/24 Transmitted Consult Dietary Evaluation Review Comments: Continue current plan of care Expected Outcomes/Goals: F/U in 3-5 days ROMÁN XIE Jul 25, 2024 19:00
--- NOTE | 2024-07-25 22:42 | DVHPN2 ---
Progress Note - Dictate Date Seen: Jul 25, 2024 Has the PT tested + for MRSA If YES, has PT been informed?: No Medical Necessity Reason Pt with a Central, PICC or Fol: Yes The following are medically ne: Wiley Catheter Reason for wiley catheter: Strict I&O Subjective Patient seen and examined at bedside. Remains on supplemental oxygen Overnight events reviewed. vital signs Vital Sign Date Time Temp Pulse Resp B/P (MAP) Pulse Ox O2 Delivery O2 Flow Rate FiO2 07/25/24 13:29 98.4 105 20 110/73 (85) 93 98.4 07/25/24 08:11 Nasal Cannula 4.0 07/25/24 08:11 36 Total Intake and Output 07/24/24 07/24/24 07/25/24 15:00 23:00 07:00 Intake Total 900 ml 400 ml Output Total 950 ml Balance -50 ml 400 ml objective Gen.: Patient lying in bed in no apparent distress. On supplemental oxygen. Head: Normocephalic, atraumatic. Eyes: EOMI/PERRLA. Ears: Normal hearing. Normal anatomy. Neck/trachea: Trachea midline, supple. Nose: Normal external anatomy. Mouth: Moist mucous membranes. Chest: Decreased air entry bilaterally. No wheezing or rhonchi. Cardiovascular: Positive S1, positive S2. Regular rate and rhythm. Abdomen: Positive bowel sounds in all 4 quadrants. Soft, non-tender, non- distended. : Deferred. Rectal: Deferred. Skin: Warm, dry. Intact. Extremities: 2+ radial pulses bilaterally. No lower extremity edema. Neuro: Awake, alert, oriented x3. No gross motor or sensory deficits. Cranial nerves II through XII intact. Gait not assessed. laboratory and microbiology Laboratory Tests 07/25/24 06:49 Test 07/25/24 06:49 Range/Units Serum Glucose 179 H 74-106 mg/dL Assessment/Plan Impression: Acute hypoxic respiratory failure COPD with acute exacerbation Acute respiratory distress Elevated D-dimer Urinary tract infection Generalized weakness Events: Remains on supplemental oxygen, 4 LPM NC Taper O2 as tolerated Continue bronchodilators Continue IV steroids q.12 hours Continue antibiotics Incentive spirometry Patient is stable for discharge from the pulmonary standpoint. Disposition per hospitalist. Labs and imaging reviewed. Rest of plan as noted below. Plan: Supplemental oxygen Titrate to keep O2 sats above 92%. Continue bronchodilators. Continue antibiotics IV steroids Xanax 0.25 mg PO q.8 hours PRN anxiety. Pain control Avoid oversedation Monitor renal function. Monitor electrolytes. Supplement as necessary. Monitor ins and outs. DVT prophylaxis. Prognosis: Poor given patient's multiple co-morbidities. Rest of plan per hospitalist and other consultants. Thank you Dr. Armendariz for allowing me to participate in this patient's care. Further recommendations will depend on the patient's clinical course. Please do not hesitate to contact me if you have any questions or concerns. This medical document was created using an electronic medical record system with [employer] dictation system. Although these documentations are being carefully reviewed, there may still be some phonetic and typographical changes. The errors are purely typographical, due to imperfection on the software program, and do not reflect any compromise in the patient's medical care. Dietary Evaluation Review Comments: Continue current plan of care Expected Outcomes/Goals: F/U in 3-5 days Plan discussed with: Patient, Other (RN) PATRIZIA MEDINA MD Jul 25, 2024 22:42
== END 2024-07-25 14:30 | disposition home or self-care (01) | DRG 871 ==
LOC: EDBD 13:55 → EDUNIT# 13:55 → ER 14:05 → TELE 22:27 → TELE-E-ADS 07-21 23:14 → TELE 07-22 → TELE-CENTR 07-22 20:53 → CENTRAL 07-24 16:14 → TELE-CENTR 07-24 20:38 → CENTRAL 07-25 05:45
PROVIDERS: ADMIT Student in an Organized Health Care Education/Training Program; ATTEND Student in an Organized Health Care Education/Training Program
PROC: 5A09357 Assistance with Respiratory Ventilation, Less than 24 Consecutive Hours, Continuous Positive Airway Pressure (ICD-10-PCS; principal; 2024-07-20)
PROC: 5A09357 Assistance with Respiratory Ventilation, Less than 24 Consecutive Hours, Continuous Positive Airway Pressure (ICD-10-PCS; 2024-07-21)
PROC: 5A09357 Assistance with Respiratory Ventilation, Less than 24 Consecutive Hours, Continuous Positive Airway Pressure (ICD-10-PCS; 2024-07-22)
PROC: 5A09357 Assistance with Respiratory Ventilation, Less than 24 Consecutive Hours, Continuous Positive Airway Pressure (ICD-10-PCS; 2024-07-23)
DX: A41.9 Sepsis, unspecified organism (principal); J18.9 Pneumonia, unspecified organism; J96.22 Acute and chronic respiratory failure with hypercapnia; J96.21 Acute and chronic respiratory failure with hypoxia; N39.0 Urinary tract infection, site not specified; J44.1 Chronic obstructive pulmonary disease with (acute) exacerbation; J44.0 Chronic obstructive pulmonary disease with (acute) lower respiratory infection; Z20.822 Contact with and (suspected) exposure to COVID-19; R73.9 Hyperglycemia, unspecified; R73.03 Prediabetes; G47.33 Obstructive sleep apnea (adult) (pediatric); D75.1 Secondary polycythemia; F14.90 Cocaine use, unspecified, uncomplicated; E87.5 Hyperkalemia; F17.200 Nicotine dependence, unspecified, uncomplicated; F41.9 Anxiety disorder, unspecified; Z82.5 Family history of asthma and other chronic lower respiratory diseases; Z85.118 Personal history of other malignant neoplasm of bronchus and lung; Z99.81 Dependence on supplemental oxygen; Z99.3 Dependence on wheelchair
CPT/HCPCS: 36415; 36600; 71045; 71275; 80053; 80202; 80307; 81001; 82565; 82805; 82962; 83036; 83605; 83735; 83880; 84132; 84484; 85025; 85379; 87040; 87077; 87081; 87086; 87186; 87426; 87804; 93005; 93306; 94640; 94660; 96365; 96375; 97116; 97163; 97530; G0378; J1815; J2543; J3490

== ENCOUNTER 2024-11-26 11:37 | Inpatient (IN) | payer OTHER, MEDICAID ==
[~2024-11-26] VITALS: Ht 157.5 cm; Wt 69.7 kg
[~2024-11-26 11:37] MED LIST changes: +HYDR-3682 PO; -MONT-8 PO
[2024-11-26] MEDS ORDERED: methylPREDNISolone SOD SUCC 125 MG/2 ML VL IV ONE (11:45)
--- NOTE | 2024-11-26 11:54 | ED.PDOC ---
SOB-HPI HPI Comments 69 y/o F, BIBA, with PMHx of asthma and COPD presents to the ED for CC of respiratory distress. EMS reports, patient is coming from home where she accidently swallowed and chocked on a meatball, causing her to have increased anxiety and difficulty breathing. Upon arrival to the scene, patient was stating at 75% on R.A; patient was placed on 5L via NRB with no change. In route to the ED, patient was given albuterol and x2 breathing Tx; EMS reports improved oxygen saturation. Patient denies chest pain, fever, chills, or nasal congestion. No other symptoms or modifying factors present at this time. Chief Complaint: Shortness of Breath Time Seen by MD: 10:40 Reviewed notes: Nurses Notes, Dietetic Aide Notes, Medications, Allergies Information Source: Patient, Emergency Med Personnel Mode of Arrival: EMS Severity: Moderate Timing: Minutes Duration: Since onset Context: Other PE Risk Factors: None History of: Asthma, COPD Prehospital treatment: None Modifying Factors: Nothing Associated Signs and Symptoms: None Past Medical History PAST MEDICAL HISTORY: Asthma, COPD Surgical History: Unknown COMPUTER CUSTOMER SUPPORT SPECIALIST History: Denies all COMPUTER CUSTOMER SUPPORT SPECIALIST Hx Family History Family History: Reviewed,noncontributory to illness Social History Smoker: Cigarettes Alcohol: Denies ETOH Use Drugs: Denies Drug Use Lives In: Home Constitutional: denies: chills, diaphoresis, fatigue, fever, malaise, sweats, weakness, others EENTM: denies: blurred vision, double vision, ear bleeding, ear discharge, ear drainage, ear pain, ear ringing, eye pain, eye redness, hearing loss, mouth pain, mouth swelling, nasal discharge, nose bleeding, nose congestion, nose pain, photophobia, tearing, throat pain, throat swelling, voice changes, others Respiratory: reports: shortness of breath; denies: cough, hemoptysis, orthopnea, SOB at rest, SOB with excertion, stridor, wheezing, others Cardiovascular: denies: chest pain, dizzy spells, diaphoresis, Dyspnea on exertion, edema, irregular heart beat, left arm pain, lightheadedness, palpitations, PND, syncope, others Gastrointestinal: denies: abdomen distended, abdominal pain, blood streaked bowels, constipated, diarrhea, dysphagia, difficulty swallowing, hematemesis, melena, nausea, poor appetite, poor fluid intake, rectal bleeding, rectal pain, vomiting, others Genitourinary: denies: abnormal vagina bleeding, burning, dyspareunia, dysuria, flank pain, frequency, hematuria, incontinence, pain, , vagina discharge, urgency, others Neurological: denies: dizziness, fainting, headache, left sided numbness, left sided weakness, numbness, paresthesia, pre-existing deficit, right sided numbness, right sided weakness, seizure, speech problems, tingling, tremors, weakness, others Integumetry: denies: bruises, change in color, change in hair/nails, dryness, laceration, lesions, lumps, rash, wounds, others Allergic/Immunocompromised: denies: Difficulty Healing, Frequent Infections, Hives, Itching, others Hematologic/Lymphatic: denies: anemia, blood clots, easy bleeding, easy bruising, swollen glands, others Endocrine: denies: excessive hunger, excessive sweating, excessive thirst, excessive urination, flushing, intolerance to cold, intolerance to heat, unexplained weight gain, unexplained weight loss, others Psychiatric: denies: anxiety, bipolar disorder, depression, hopeless, panic disorder, schizophrenia, sleepless, suicidal, others All Other Systems: Reviewed and Negative Physical Exam General Appearance: Moderate Distress HEENT: Normal ENT Inspection, Pharynx Normal, TMs Normal Neck: Full Range of Motion, Non-Tender, Normal, Normal Inspection Respiratory: Chest Non-Tender, Decreased Breath Sounds, No Accessory Muscle Use, Respiratory Distress, Wheezing Cardiovascular: No Edema, No JVD, No Murmur, No Gallop, Normal Peripheral Pulses, Regular Rate/Rhythm Breast Exam: Deferred Gastrointestinal: No Organomegaly, Non Tender, No Pulsatile Mass, Normal Bowel Sounds, Soft Genitalia: Deferred Pelvic: Deferred Rectal: Deferred Extremities: No calf tenderness, Normal capillary refill, Normal inspection, Normal range of motion, Non-tender, No pedal edema Musculoskeletal : Apperance: Normal Neurologic: Alert, detention worker II-XII nml as Tested, No Motor Deficits, Normal Affect, Normal Mood, No Sensory Deficits Cerebellar Function: Normal Reflexes: Normal Skin: Dry, Normal Color, Warm Lymphatic: No Adenopathy EKG EKG : Pulse Rate (adult): 116 Cardiac Rhythm: NSR Block: None ST: Nonsp Was a procedure done? Was a procedure done?: No Differential Dx Differential Diagnosis: Asthma, Bronchitis, COPD, Sinusitis, Pharyngitis, URI X-Ray, Labs, Meds, VS Vital Signs Date Time Temp Pulse Resp B/P (MAP) Pulse Ox O2 Delivery O2 Flow Rate FiO2 11/26/24 12:05 116 11/26/24 12:03 20 98 Room Air* 0 21 11/26/24 11:40 98.6 128 28 158/83 (108) 94 98.6 Lab Test 11/26/24 11:52 Range/Units White Blood Count 8.8 4.4-10.8 10^3/uL Red Blood Count 5.25 H 4.0-5.20 10^6/uL Hemoglobin 15.8 12.2-16.2 g/dL Hematocrit 48.7 H 36.0-46.0 % Mean Corpuscular Volume 92.8 80.0-100.0 fL Mean Corpuscular Hemoglobin 30.2 28.0-32.0 pg Mean Corpuscular Hemoglobin Concent 32.5 32.0-36.0 g/dL Red Cell Distribution Width 13.9 11.8-14.3 % Platelet Count 301 140-450 10^3/uL Mean Platelet Volume 8.0 6.9-10.8 fL Neutrophils (%) (Auto) 64.9 37.0-80.0 % Lymphocytes (%) (Auto) 23.2 10.0-50.0 % Monocytes (%) (Auto) 9.1 0.0-12.0 % Eosinophils (%) (Auto) 2.4 0.0-7.0 % Basophils (%) (Auto) 0.4 0.0-2.0 % Neutrophils # (Auto) 5.7 1.6-8.6 10 ^3/uL Lymphocytes # (Auto) 2.0 0.4-5.4 10 ^3/uL Monocytes # (Auto) 0.8 0-1.3 10 ^3/uL Eosinophils # (Auto) 0.2 0-0.8 10 ^3/uL Basophils # (Auto) 0 0-0.2 10 ^3/uL Nucleated Red Blood Cells 0.0 % Sodium Level 144 136-145 mmol/L Potassium Level 4.4 3.5-5.1 mmol/L Chloride Level 105 98-107 mmol/L Carbon Dioxide Level 31 20-31 mmol/L Anion Gap 8 5-15 Blood Urea Nitrogen 15 9-23 mg/dL Creatinine 0.72 0.550-1.02 mg/dL Glomerular Filtration Rate Calc 91 >90 mL/min BUN/Creatinine Ratio 20.8 H 10.0-20.0 Serum Glucose 122 H 74-106 mg/dL Calcium Level 9.8 8.7-10.4 mg/dL Current Medications Medications (Trade) Dose Ordered Sig/Timothy Route Start Time Stop Time Status Last Admin Ipratropium [place] (Atrovent Medneb) 1 mg ONCE ONCE [facility] 11/26/24 11:45 11/26/24 11:46 DC 11/26/24 12:03 Albuterol (Ventolin Medneb) 10 mg ONCE ONCE [facility] 11/26/24 11:45 11/26/24 11:46 DC 11/26/24 12:02 CXR: IMPRESSION: Pulmonary vascular congestion or viral pneumonia The patient was given a continuous breathing treatment of albuterol and Atrovent. The patient's CBC and chemistry panel are within normal limits The patient was given Solu-Medrol 120 mg IV push The patient is being admitted with a diagnosis of COPD exacerbation The patient understands and agrees with the management. Images Reviewed?: Images reviewed and evaluated by me Time of 1ST Reevaluation: 11:20 Reevaluation 1ST: Unchanged Patient Education/Counseling: Diagnosis, Treatment, Prognosis Family Education/Counseling: No Family Present Departure 1 Departure Time of Disposition: 12:32 Impression: Primary Impression: Acute on chronic respiratory failure with hypercapnia Additional Impression: COPD exacerbation Disposition: ADMITTED INPATIENT Admit to: [facility] Condition: Fair Critical Care Note Critical Care Time?: Yes (35 min-critical care time only) Stability Stability form required: Yes Unstable for transfer: Telemetry monitoring (Telemetry monitoring required), ED Physician Assesment (Clinical assesment) Heart Score Heart Score: Heart Score Response (Comments) Value History N/A 0 EKG N/A 0 Age N/A 0 Risk Factors N/A 0 Troponin N/A 0 Total 0 I personally scribed for KASSIE GODWIN PAC ([email or web address]) on 11/26/24 at 11:54. Electronically submitted by Clara Ochoa ([email or web address]). I personally scribed for KASSIE GODWIN PAC ([email or web address]) on 11/26/24 at 12:29. Electronically submitted by Clara Ochoa ([email or web address]). KASSIE GODWIN November 26, 2024 11:54 MELANIE VASQUEZ MD November 26, 2024 12:32
[2024-11-26 12:02] LABS: Basophils # (auto) 0 10 ^3/uL (0-0.2); Basophils % (auto) 0.4 % (0.0-2.0); Eosinophils # (auto) 0.2 10 ^3/uL (0-0.8); Eosinophils % (auto) 2.4 % (0.0-7.0); Hematocrit 48.7 % (36.0-46.0); Hemoglobin 15.8 g/dL (12.2-16.2); Lymphocytes % (auto) 23.2 % (10.0-50.0); Mean Corpuscular Hemoglobin 30.2 pg (28.0-32.0); Mean Corpuscular Hgb Conc. 32.5 g/dL (32.0-36.0); Mean Corpuscular Volume 92.8 fL (80.0-100.0); Monocytes # (auto) 0.8 10 ^3/uL (0-1.3); Monocytes % (auto) 9.1 % (0.0-12.0); Neutrophils # (auto) 5.7 10 ^3/uL (1.6-8.6); Neutrophils % (auto) 64.9 % (37.0-80.0); Platelet Count (auto) 301 10^3/uL (140-450); Red Blood Cells 5.25 10^6/uL (4.0-5.20); Red Cell Distribution Width 13.9 % (11.8-14.3); White Blood Cell 8.8 10^3/uL (4.4-10.8)
[2024-11-26] MEDS: ALBUTEROL SULF 2.5 MG/0.5ML(0.5%) NEB SOLN HHN ONE (12:02)
[2024-11-26] MEDS: IPRATROPIUM BROM 0.5 MG/2.5ML INH SOL HHN ONE (12:03)
[2024-11-26 12:10] LABS: Chloride 105 mmol/L (98-107); Potassium 4.4 mmol/L (3.5-5.1); Sodium 144 mmol/L (136-145)
[2024-11-26 12:11] LABS: Calcium 9.8 mg/dL (8.7-10.4)
--- NOTE | 2024-11-26 12:11 | DVH ---
CHEST RADIOGRAPH Indication: sob Technique: Single frontal view of the chest was obtained COMPARISON: XY CHEST XRAY 1 VIEW on DOS: 07/23/24, XY CHEST PORTABLE on DOS: 07/20/24, CHEST PORTABLE on DOS: 09/29/21, CHEST PORTABLE on DOS: 09/26/21 FINDINGS: Lines and Tubes: None Lungs: Increased interstitial prominence Pleura: No effusion. No pneumothorax. Cardiomediastinal contours: Cardiomegaly Bones: Unremarkable IMPRESSION: Pulmonary vascular congestion or viral pneumonia
[2024-11-26 12:16] LABS: BUN/Creatinine Ratio 20.8 (10.0-20.0); Blood Urea Nitrogen 15 mg/dL (9-23)
[2024-11-26 12:21] LABS: Glucose 122 mg/dL (74-106)
[2024-11-26 12:22] LABS: Anion Gap 8 (5-15); Carbon Dioxide 31 mmol/L (20-31)
[2024-11-26] MEDS: methylPREDNISolone SOD SUCC 40 MG/ML VL IV ONE (12:36)
[2024-11-26 13:00] VITALS: PULSE 116; RESP 18; O2SAT 95
[2024-11-26] MEDS ORDERED: DOCUSATE SOD 100 MG CAP PO PRN (13:00)
[2024-11-26] MEDS ORDERED: ONDANSETRON HCL 4 MG/2 ML VIAL IV PRN (13:00)
[2024-11-26] MEDS ORDERED: ALBUTEROL SULF 2.5 MG/0.5ML(0.5%) NEB SOLN NEB PRN (13:00)
[2024-11-26] MEDS ORDERED: ACETAMINOPHEN 325 MG TAB PO PRN (13:00)
--- NOTE | 2024-11-26 13:27 | DVHHP2 ---
History of Present Illness Reason for Visit: COPD with acute exacerbation History of Present Illness The patient is a 69-year-old female with past medical history of asthma and COPD who presented to [facility] ED with complaint of shortness of breaths. As reported, patient was choked on a meat ball causing her to have increased anxiety, difficulty breathing, desaturating on room 75%, increased work of breathing and was placed on a non-rebreather with no improvement, getting worse that prompted this visit. Patient was seen and evaluated in the ED, laboratory data shows WBC 8.8, platelets 301, sodium 144, potassium 4.4, BUN 15, creatinine 0.72, glucose 122, calcium 9.8, blood pressure 107/70, heart rate 1 one six, temperature 98.6 F, O2 saturation 98% on oxygen. Chest x-ray revealing pulmonary vascular congestion or viral pneumonia. Please see medication orders section in the computer. On my assessment, patient denied chest pain, no headache, no dizziness, no diaphoresis, currently on oxygen, no nausea, no vomiting, no fever, no chills. Patient was admitted for further evaluation and medical management. Past Medical History Asthma, COPD Family History Reviewed, noncontributory to the management of this case. Past Social History The patient lives at home, smokes cigarettes, denies alcohol or illicit drugs abuse. Review of Systems Constitutional: Yes: Weakness; No: Fever, Chills, Sweats, Malaise, Other Eyes: No: Pain, Vision change, Conjunctivae inflammation, Eyelid inflammation, Other, Redness ENT: No: Ear pain, Ear discharge, Nose pain, Nose discharge, Nose congestion, Mouth pain, Mouth swelling, Throat pain, Throat swelling, Other Respiratory: Shortness of breath, SOB with excertion; No: Cough, Dry, Wheezing, Hemoptysis, Pleuritic Pain, Sputum, Wheezing, Other Cardiovascular: No: Chest Pain, Palpitations, Orthopnea, Paroxysmal Noc. Dyspnea, Edema, Lt Headedness, Other Gastrointestinal: No: Nausea, Vomiting, Abdominal Pain, Diarrhea, Constipation, Melena, Hematochezia, Other Genitourinary: No Dysuria, No Frequency, No Incontinence, No Hematuria, No Retention, No Other Musculoskeletal: No: other, neck pain, shoulder pain, arm pain, back pain, hand pain, leg pain, foot pain Skin: No: Rash, Lesions, Jaundice, Bruising, Other Neurological: No: Weakness, Numbness, Incoordination, Change in speech, Confusion, Seizures, Other Allergies: Coded Allergies: NO KNOWN ALLERGIES (Unverified , 09/26/21) Medications Current Medications Medications Dose Ordered Sig/Timothy Route Start Time Stop Time Status Last Admin Dose Admin Aspirin 81 mg DAILY PO 11/27/24 10:00 Albuterol 2.5 mg Q4HPRN PRN NEB 11/26/24 13:00 Ipratropium [place] 0.5 mg Q4HPRN PRN NEB 11/26/24 13:00 Methylprednisolone Sodium Succinate 40 mg Q8HR IV 11/26/24 14:00 Famotidine 20 mg Q12HR IV 11/26/24 22:00 Sodium Chloride 10 ml Q8HR IV 11/26/24 14:00 Acetaminophen/ Hydrocodone Bitart 1 tab Q4HP PRN PO 11/26/24 13:00 Ondansetron HCl 4 mg Q4HP PRN IV 11/26/24 13:00 Docusate Sodium 100 mg BIDPRN PRN PO 11/26/24 13:00 Acetaminophen 650 mg Q6HP PRN PO 11/26/24 13:00 Nitroglycerin 0.4 mg Q5MINP PRN SL 11/26/24 13:30 UNV Morphine Sulfate 2 mg Q30M PRN IV 11/26/24 13:30 UNV Exam Vital Signs Vital Signs Date Time Temp Pulse Resp B/P (MAP) Pulse Ox O2 Delivery O2 Flow Rate FiO2 11/26/24 13:00 116 18 95 Nasal Cannula* 4 36 11/26/24 12:25 98.6 107/70 (82) 98.6 General Appearance: Alert, Oriented X3, Cooperative, No acute distress HEENT: Atraumatic, PERRLA, EOMI, Mucous membr. moist/pink Respiratory: Normal air movement (Diminished breath sounds) Cardiovascular: Regular rate, Normal S1, Normal S2, No murmurs Abdominal: Normal bowel sounds, Soft, No tenderness, No hepatospenomegaly, No masses Extremities: No clubbing, No cyanosis, No edema, Normal pulses, No tenderness/swelling Skin: No rashes, No breakdown, No significant lesion Neuro: Normal speech, Normal tone, Sensation intact, Cranial nerves 3-12 NL, Reflexes 2+, Other (Weakness) Psych/Mental Status: Mental status NL, Mood NL Labs/Xrays Labs Test 11/26/24 11:52 Range/Units White Blood Count 8.8 4.4-10.8 10^3/uL Red Blood Count 5.25 H 4.0-5.20 10^6/uL Hemoglobin 15.8 12.2-16.2 g/dL Hematocrit 48.7 H 36.0-46.0 % Mean Corpuscular Volume 92.8 80.0-100.0 fL Mean Corpuscular Hemoglobin 30.2 28.0-32.0 pg Mean Corpuscular Hemoglobin Concent 32.5 32.0-36.0 g/dL Red Cell Distribution Width 13.9 11.8-14.3 % Platelet Count 301 140-450 10^3/uL Mean Platelet Volume 8.0 6.9-10.8 fL Neutrophils (%) (Auto) 64.9 37.0-80.0 % Lymphocytes (%) (Auto) 23.2 10.0-50.0 % Monocytes (%) (Auto) 9.1 0.0-12.0 % Eosinophils (%) (Auto) 2.4 0.0-7.0 % Basophils (%) (Auto) 0.4 0.0-2.0 % Neutrophils # (Auto) 5.7 1.6-8.6 10 ^3/uL Lymphocytes # (Auto) 2.0 0.4-5.4 10 ^3/uL Monocytes # (Auto) 0.8 0-1.3 10 ^3/uL Eosinophils # (Auto) 0.2 0-0.8 10 ^3/uL Basophils # (Auto) 0 0-0.2 10 ^3/uL Nucleated Red Blood Cells 0.0 % Sodium Level 144 136-145 mmol/L Potassium Level 4.4 3.5-5.1 mmol/L Chloride Level 105 98-107 mmol/L Carbon Dioxide Level 31 20-31 mmol/L Anion Gap 8 5-15 Blood Urea Nitrogen 15 9-23 mg/dL Creatinine 0.72 0.550-1.02 mg/dL Glomerular Filtration Rate Calc 91 >90 mL/min BUN/Creatinine Ratio 20.8 H 10.0-20.0 Serum Glucose 122 H 74-106 mg/dL Calcium Level 9.8 8.7-10.4 mg/dL PATIENT: ADULYAPARPAKORN,ROSA ANNEAT: [id number] UNIT: [id number] : 1955 LOC: ER ROOM / BED: / AGE / SEX: 69 / F ADM STATUS: REG ER SERVICE 1142 ORDERING PHYSICIAN: MELANIE VASQUEZ MD PROCEDURE(s): CXRP - CHEST PORTABLE REASON: sob ORDER NUMBER(s): [id number], ACCESSION NUMBER(s): [id number] CHEST RADIOGRAPH Indication: sob Technique: Single frontal view of the chest was obtained COMPARISON: XY CHEST XRAY 1 VIEW on DOS: 07/23/24, XY CHEST PORTABLE on DOS: 07/20/24, CHEST PORTABLE on DOS: 09/29/21, CHEST PORTABLE on DOS: 09/26/21 FINDINGS: Lines and Tubes: None Lungs: Increased interstitial prominence Pleura: No effusion. No pneumothorax. Cardiomediastinal contours: Cardiomegaly Bones: Unremarkable IMPRESSION: Pulmonary vascular congestion or viral pneumonia Assessment/Plan Assessment/Plan COPD with acute exacerbation Acute on chronic respiratory failure with hypercapnia Acute respiratory failure with hypoxia Pneumonia, unspecified organism Plan 1. Admit to telemetry unit 2. Breathing treatment 3. Pain control management 4. Management of fluids and electrolytes 5. Consultation for hospitalist 6. Diagnostic tests chest x-ray 7. DVT prophylaxis-on aspirin 8. Repeat labs CBC, CMP in a.m. 9. Continue with current medical management 10. Treatment plan discussed with patient and RN. Patient verbalized understanding. Plan discussed with: Patient, Other (RN) My Orders Orders - YAZAN RODGERS DNP Procedure Category Date Status Time Aspirin Tablet PHA 11/27/24 In Process 10:00 Albuterol Medneb PHA 11/26/24 In Process (Ventolin Medneb) 13:00 Ipratropium Medneb PHA 11/26/24 In Process (Atrovent Medneb) 13:00 Methylprednisolone PHA 11/26/24 In Process Sod Succ (Solu Medrol 14:00 Famotidine Injection PHA 11/26/24 In Process (Pepcid Injection) 22:00 Allergies BRANDYN 11/26/24 In Process 13:00 Code Status CODE 11/26/24 Transmitted 13:00 Sodium Chloride Lock PHA 11/26/24 In Process (Saline Lock Ns) 14:00 Oxygen Per Hour RT 11/26/24 Transmitted 13:00 Hydrocodone-Acet PHA 11/26/24 In Process 5/325mg Tab ([place] 13:00 Ondansetron Hcl PHA 11/26/24 In Process (Zofran) 13:00 Docusate Sodium PHA 11/26/24 In Process Capsule (Colace 13:00 Complete Blood Count LAB 11/27/24 Verified 04:00 Comprehensive LAB 11/27/24 Verified Metabolic Panel 04:00 Cardiac DIET 11/26/24 Transmitted Diet-2gna,Lofat,Lochol Lunch Condition: Serious BRANDYN 11/26/24 In Process 13:00 Acetaminophen Tablet PHA 11/26/24 In Process (Tylenol Tablet) 13:00 Bedrest With Bathroom BRANDYN 11/26/24 In Process Privileg 13:00 Sequential BRANDYN 11/26/24 In Process Compression Device Admit ADMIT 11/26/24 Transmitted 13:25 Nitroglycerin PHA 11/26/24 Logged Sublingual (Ntrostat 13:30 Morphine Sulfate PHA 11/26/24 Logged Injection 13:30 Notify Of Changes BRANDYN 11/26/24 Transmitted From Base 13:25 Director Blood Bank For BRANDYN 11/26/24 Transmitted 24 Hours 13:25 Emergency Dysrhythmia BRANDYN 11/26/24 Transmitted Protocol 13:25 Rhythm Strips Once BRANDYN 11/26/24 Transmitted Every Shift 13:25 Oxygen By Nasal RT 11/26/24 Transmitted Cannula 13:25 Problem List: (1) COPD with acute exacerbation (2) Acute on chronic respiratory failure with hypercapnia (3) Acute respiratory failure with hypoxia (4) Pneumonia, unspecified organism Date of Service: November 26, 2024 Billing Provider: YAZAN RODGERS DNP Common Visit Codes: 50880-[id number] INP/OBS CARE (HIGH) YAZAN RODGERS DNP November 26, 2024 13:27
[2024-11-26 13:30] VITALS: PULSE 116; RESP 18; TEMP 98.6; O2SAT 95
[2024-11-26] MEDS ORDERED: MORPHINE SULFATE INJ 2 MG/ml SYRG IV PRN (13:30)
[2024-11-26] MEDS ORDERED: NITROGLYCERIN 0.4 MG SL TAB SL PRN (13:30)
[2024-11-26] MEDS: methylPREDNISolone SOD SUCC 40 MG/ML VL IV SCH (14:00)
[2024-11-26] MEDS: SODIUM CHLOR 0.9% PF (SALINE LOCK) 10ML VIAL/SYR IV SCH (14:25)
[2024-11-26] MEDS: AZITHROMYCIN 500MG/ 250ML 250 ML IV ONE (15:01)
[2024-11-26] MEDS: LEVALBUTEROL HCL 1.25 MG/3 ML NEB NEB SCH (18:49)
[2024-11-26] MEDS: IPRATROPIUM BROM 0.5 MG/2.5ML INH SOL NEB PRN (18:50)
--- NOTE | 2024-11-26 18:52 | ECG ---
[facility] Test Date: 2024-11-26 Test Time: 12:05:09 Pat Name: ROSA MAIER Department: ED Room: 0223T Gender: F Park [employer]: PARAS : 1955 Requested By: MELANIE VASQUEZ Order Number: [id number] Reading MD: Tomas Garcia Measurements Intervals [place] Rate: 116 P: 73 CT: 128 QRS: 92 QRSD: 134 T: 2 QT: 364 QTc: 506 Interpretive Statements Sinus tachycardia Probable left atrial enlargement RBBB and LPFB Electronically Signed On 11-27-2024 12:48:30 PDT by Tomas Garcia Please click the below link to view image of tracing.
[2024-11-26 19:50] VITALS: PULSE 107; RESP 21; O2SAT 94
[2024-11-26 23:14] VITALS: BP 115/59; PULSE 99; RESP 18; TEMP 98.1; O2SAT 95
[2024-11-26 23:54] VITALS: PULSE 99; RESP 17; O2SAT 95
[2024-11-27] VITALS (19 sets, daily range): BP systolic 107–136; BP diastolic 53–65; PULSE 65–113; RESP 16–20; TEMP 97.8–98.6; O2SAT 92–100
[2024-11-27] MEDS: FAMOTIDINE (10MG/ML) 2ML VL IV SCH (00:10)
[2024-11-27] MEDS: HYDROcodone-ACET 5/325MG TAB PO PRN (00:24)
[2024-11-27 06:49] LABS: Basophils # (auto) 0 10 ^3/uL (0-0.2); Basophils % (auto) 0.2 % (0.0-2.0); Eosinophils # (auto) 0 10 ^3/uL (0-0.8); Hematocrit 45.7 % (36.0-46.0); Hemoglobin 15.1 g/dL (12.2-16.2); Lymphocytes # (auto) 0.6 10 ^3/uL (0.4-5.4); Lymphocytes % (auto) 8.7 % (10.0-50.0); Mean Corpuscular Hemoglobin 30.7 pg (28.0-32.0); Mean Corpuscular Hgb Conc. 33.1 g/dL (32.0-36.0); Mean Corpuscular Volume 92.8 fL (80.0-100.0); Monocytes # (auto) 0.1 10 ^3/uL (0-1.3); Monocytes % (auto) 1.9 % (0.0-12.0); Neutrophils # (auto) 6.4 10 ^3/uL (1.6-8.6); Neutrophils % (auto) 89.2 % (37.0-80.0); Nucleated Red Blood Cells % 0.2 %; Platelet Count (auto) 298 10^3/uL (140-450); Red Blood Cells 4.92 10^6/uL (4.0-5.20); Red Cell Distribution Width 13.5 % (11.8-14.3); White Blood Cell 7.1 10^3/uL (4.4-10.8)
[2024-11-27 07:00] LABS: Alanine Aminotransferase 16 U/L (7-40); Alkaline Phosphatase 59 U/L (46-116); Anion Gap 8 (5-15); BUN/Creatinine Ratio 18.4 (10.0-20.0); Blood Urea Nitrogen 14 mg/dL (9-23); Calcium 9.3 mg/dL (8.7-10.4); Carbon Dioxide 29 mmol/L (20-31); Chloride 103 mmol/L (98-107); Potassium 4.6 mmol/L (3.5-5.1); Sodium 140 mmol/L (136-145)
[2024-11-27 07:01] LABS: Total Protein 6.5 g/dL (5.7-8.2)
[2024-11-27 07:02] LABS: Albumin 4.3 g/dL (3.2-4.8); Aspartate Aminotransferase 14 U/L (13-40); Glucose 210 mg/dL (74-106)
[2024-11-27 07:07] LABS: Bilirubin, Total 0.2 mg/dL (0.2-1.0)
[2024-11-27] MEDS: AZITHROMYCIN 500MG/ 250ML 250 ML IV SCH (09:03)
[2024-11-27] MEDS: ASPirin 81 mg TAB PO SCH (09:06)
--- NOTE | 2024-11-27 10:48 | DVHPN2 ---
Subjective Continues to have subjective dyspnea. Reviewed: Care Plan, H&P, Labs, Medications Changes from previous H/P or p: No Changes General: Per HPI Eyes: No Pain, No Vision change, No Conjunctivae inflammation, No Eyelid inflammation, No Other, No Redness ENT: No Ear pain, No Ear discharge, No Nose pain, No Nose discharge, No Nose congestion, No Mouth pain, No Mouth swelling, No Throat pain, No Throat swelling, No Other Cardiovascular: No Chest Pain, No Palpitations, No Orthopnea, No Paroxysmal Noc. Dyspnea, No Edema, No Lt Headedness, No Other Respiratory: No Cough, No Dry; Shortness of breath, SOB with excertion; No Wheezing, No Hemoptysis, No Pleuritic Pain, No Sputum, No Other Gastrointestinal: No Nausea, No Vomiting, No Abdominal Pain, No Diarrhea, No Constipation, No Melena, No Hematochezia, No Other Genitourinary: No Dysuria, No Frequency, No Incontinence, No Hematuria, No Retention, No Other Musculoskeletal: No other, No neck pain, No shoulder pain, No arm pain, No back pain, No hand pain, No leg pain, No foot pain Skin: No Rash, No Lesions, No Jaundice, No Bruising, No Other Objective Vitals Vital Signs Date Time Temp Pulse Resp B/P (MAP) Pulse Ox O2 Delivery O2 Flow Rate FiO2 11/27/24 10:40 105 18 100 11/27/24 10:34 Nasal Cannula* 4 36 11/27/24 05:00 98.2 108/53 (71) 98.2 Intake/Output Intake and Output 11/27/24 07:00 Intake Total 430 ml Balance 430 ml Intake Oral 180 ml IV Total 250 ml # Voids 2 General Appearance: Alert, Oriented X3, Cooperative, mild distress HEENT: Atraumatic, PERRLA Lungs: Other (Absent breath sounds. Nasal cannula at 3 L/min) Cardiovascular: Normal S1, Normal S2 Abdomen: Normal bowel sounds, Soft, No tenderness, No hepatospenomegaly, No masses Musculoskeletal: Normal sensory function, Normal motor function Neuro: Normal speech, Cranial nerves 3-12 NL Skin: Dry, Intact Psych/Mental Status: Mental status NL, Mood NL Medications Current Medications Medications Dose Ordered Sig/Timothy Route Start Time Stop Time Status Last Admin Dose Admin Aspirin 81 mg DAILY PO 11/27/24 10:00 11/27/24 09:06 81 MG Ipratropium Sanderson 0.5 mg Q4HPRN PRN NEB 11/26/24 13:00 11/27/24 10:34 0.5 MG Methylprednisolone Sodium Succinate 40 mg Q8HR IV 11/26/24 14:00 11/27/24 05:36 40 MG Famotidine 20 mg Q12HR IV 11/26/24 22:00 11/27/24 09:02 20 MG Sodium Chloride 10 ml Q8HR IV 11/26/24 14:00 11/27/24 05:36 10 ML Acetaminophen/ Hydrocodone Bitart 1 tab Q4HP PRN PO 11/26/24 13:00 11/27/24 00:24 1 TAB Ondansetron HCl 4 mg Q4HP PRN IV 11/26/24 13:00 Docusate Sodium 100 mg BIDPRN PRN PO 11/26/24 13:00 Acetaminophen 650 mg Q6HP PRN PO 11/26/24 13:00 Nitroglycerin 0.4 mg Q5MINP PRN SL 11/26/24 13:30 Morphine Sulfate 2 mg Q30M PRN IV 11/26/24 13:30 Azithromycin 250 ml @ 125 mls/hr DAILY IV 11/27/24 10:00 11/27/24 09:03 125 MLS/HR Levalbuterol HCl 0.625 mg Q6HR NEB 11/26/24 18:00 11/27/24 10:34 0.625 MG Laboratory Results Laboratory Tests 11/27/24 06:06 Chemistry Test 11/26/24 11:52 11/27/24 06:06 Calcium Level 9.8 mg/dL (8.7-10.4) 9.3 mg/dL (8.7-10.4) Albumin 4.3 g/dL (3.2-4.8) Total Protein 6.5 g/dL (5.7-8.2) LFT Test 11/27/24 06:06 Alanine Aminotransferase (ALT) 16 U/L (7-40) Alkaline Phosphatase 59 U/L (46-116) Aspartate Amino Transferase (AST) 14 U/L (13-40) Total Bilirubin 0.2 mg/dL (0.2-1.0) Labs and/or images reviewed: Labs reviewed by me, Image(s) reviewed by me Assessment/Plan Assessment/Plan Impression: -acute on chronic hypoxic respiratory failure -COPD -community-acquired pneumonia, questionable Gram-positive/Gram-negative etiology versus viral -obesity -diabetes mellitus Plan: -bronchodilators -IV steroids -empiric antibiotics -check BNP -consider echocardiogram if BNP is elevated -regular insulin sliding scale -add Pulmicort b.i.d. -repeat chest x-ray in a.m. Total time spent with patient discussing and formulating plan of care: 35 minutes. This medical document was created using an electronic medical record system with [employer] dictation system. Although this document has been carefully reviewed, there may still be some phonetic and typographical errors. These areas are purely typographical due to imperfections of the software programs, and do not reflect any compromise in the patient's medical care. Plan discussed with: Patient, Other (RN) My Orders Orders - MARGUERITE HEADLEY NP Procedure Category Date Status Time B-Type Natriuretic LAB 11/27/24 Verified Peptide 10:40 Erythrocyte LAB 11/27/24 Verified Sedimentation Rate 10:40 C-Reactive Protein LAB 11/27/24 Verified 10:40 Covid19 Antigen Kia LAB 11/27/24 Verified Rapid Influenza A&B LAB 11/27/24 Verified 10:40 Date of Service: November 27, 2024 Billing Provider: MARGUERITE HEADLEY NP Common Visit Codes: [id number] INP/OBS CARE(HIGH) MARGUERITE HEADLEY NP November 27, 2024 10:48
[2024-11-27] MEDS: FUROSEMIDE 20 MG/2 ML VIAL IV ONE (11:19)
[2024-11-27 11:28] LABS: Erythrocyte Sedimentation Rate 7 mm/hr (0-20)
--- NOTE | 2024-11-27 15:23 | MEDREC ---
[facility] Intervention Section I [facility] Intervention: Review courses of therapy (DUE TO PROLONG QTc > 500 PLEASE CONSIDER SWITCHING AZITHROMYCIN TO DOXYCYCLINE ) ROSE MARIE PICHARDO PHARMACIST November 27, 2024 15:23
[2024-11-27] MEDS: BUDESONIDE (INHALATION) 0.5 MG/2 ML NEB NEB SCH (18:27)
[2024-11-27 21:18] LABS: COVID19 ANTIGEN SOFIA FIA NEGATIVE (NEGATIVE); Rapid Influenza A Negative (Negative); Rapid Influenza B Negative (Negative)
[2024-11-27] MEDS: hydrOXYzine 25 MG TAB or CAP PO SCH (22:15)
[2024-11-28] VITALS (14 sets, daily range): BP systolic 137–142; BP diastolic 70–80; PULSE 95–111; RESP 18–21; TEMP 97.8–98.3; O2SAT 92–99
--- NOTE | 2024-11-28 09:58 | DVH ---
EXAM: XY CHEST XRAY 1 VIEW Indication: chf Technique: Single frontal view of the chest was obtained Comparison: XY CHEST PORTABLE on DOS: 11/26/24, XY CHEST XRAY 1 VIEW on DOS: 07/23/24, XY CHEST PORTABLE on DOS: 07/20/24, CHEST PORTABLE on DOS: 09/29/21, CHEST PORTABLE on DOS: 09/26/21 FINDINGS: Lines and Tubes: None Lungs: No focal consolidation. Pleura: No effusion. No pneumothorax. Cardiomediastinal contours: Unremarkable Bones: No acute osseous abnormality. IMPRESSION: No acute cardiopulmonary disease.
[2024-11-28] MEDS: FUROSEMIDE 20 MG/2 ML VIAL IV ONE (10:37)
[2024-11-28] MEDS ORDERED: methylPREDNISolone SOD SUCC 40 MG/ML VL IV SCH (18:00)
== END 2024-11-28 15:30 | disposition home or self-care (01) | DRG 177 ==
LOC: EDBD 11:37 → ER 11:43 → OVERFLOW 13:25 → TELE-CENTR 23:08
PROVIDERS: ADMIT Nurse Practitioner Acute Care; ATTEND Nurse Practitioner Acute Care
DX: J15.69 Pneumonia due to other Gram-negative bacteria (principal); J96.21 Acute and chronic respiratory failure with hypoxia; J44.1 Chronic obstructive pulmonary disease with (acute) exacerbation; J44.0 Chronic obstructive pulmonary disease with (acute) lower respiratory infection; J12.9 Viral pneumonia, unspecified; J15.9 Unspecified bacterial pneumonia; E66.9 Obesity, unspecified; E11.9 Type 2 diabetes mellitus without complications; Z20.822 Contact with and (suspected) exposure to COVID-19; F41.9 Anxiety disorder, unspecified; F17.210 Nicotine dependence, cigarettes, uncomplicated; Z68.27 Body mass index [BMI] 27.0-27.9, adult
CPT/HCPCS: 36415; 71045; 80048; 80053; 83880; 85025; 85652; 86141; 87081; 87426; 87804; 93005; 94640; 94644; 99291; G0378; J3490

== ENCOUNTER 2024-12-22 18:40 | Inpatient (IN) | payer OTHER, MEDICAID ==
[~2024-12-22] VITALS: Ht 165.1 cm; Wt 69.1 kg
[2024-12-22 18:49] VITALS: PULSE 126; RESP 20; O2SAT 97
[2024-12-22] MEDS: SODIUM CHLORIDE 0.9% 1,000 ML IV ONE ×2 (19:00→20:30)
[2024-12-22] MEDS: IPRATROPIUM BROM 0.5 MG/2.5ML INH SOL NEB ONE (19:11)
[2024-12-22] MEDS: ALBUTEROL SULF 2.5 MG/0.5ML(0.5%) NEB SOLN NEB ONE (19:11)
--- NOTE | 2024-12-22 19:13 | ED.PDOC ---
History of Present Illness HPI Comments 69 y/o F is BIBA for c/o shortness of breath. Per EMS report, patient endorses on unprovoked and sudden onset of difficulty breathing 35-45x minutes prior to arrival. Patient has a history of anxiety, asthma, COPD w/4LPM home oxygen, unspecified lung cancer, polycythemia vera, sepsis, PNA, UTI's, and polysub stance abuse. She was found on SpO2 84% on her home oxygen on scene. All other vitals were noted to have been within normal limits and stable, with exception of being tachycardic at 140's. En route, patient was given 1x Duo Nebulizer breathing treatment and placed on CPAP, with SpO2 improving to 95%. At time of assessment, patient reports being sick with the flu for the past few days and was unable to use any of her at home breathing treatments, this evening. She has no reported chest pain, palpitations, fever, chills, or further associated symptoms. Chief Complaint: Shortness of Breath Time Seen by MD: 18:45 Reviewed Notes: Nurses Notes, Welt Sewer Notes, Medications, Allergies Allergies: Coded Allergies: Sulfa Antibiotics (Verified Allergy, Unknown, 12/22/24) Home Meds Active Scripts Prednisone (Prednisone) 20 Mg Tab, 40 MG PO DAILY for 5 Days, #10 MG 0 Refills Prov:DWAYNE LLANES MD 07/23/24 Doxycycline Monohydrate (Doxycycline Monohydrate) 100 Mg Tab, 100 MG PO BID for 5 Days, #10 TAB 0 Refills Prov:DWAYNE LLANES MD 07/23/24 Aspirin (Aspirin Low Strength) 81 Mg Chw, 81 MG PO DAILY for 30 Days, #30 TAB.CHEW Prov:AMANDA LEDEZMA MD 09/29/21 Reported Medications Hydroxyzine Hcl (Hydroxyzine Hcl) 25 Mg Tab, 25 MG PO BID for 30 Days, MG 07/23/24 Budesonide-Formoterol Fumarate (Budesonide/Formoterol Fum 160-4.5 Mcg/Act) 1 Aer Aer, INH 09/27/21 Albuterol Sulfate (Albuterol Sulfate Hfa) 108 Mcg/Act Aer, INH 09/27/21 Tiotropium [place] Monohydrate (Spiriva Respimat) 2.5 Mcg/Act Spr, 2 PUFF INH DAILYPRN 3/14/22 Information Source: Patient, Emergency Med Personnel Mode of Arrival: EMS Severity: Moderate Timing: Minutes Duration: Since onset Prehospital treatment: 12 Lead EKG, Breathing Tx, Furniture Stainer, C-Pap Review of Systems: REVIEW OF SYSTEMS: No fever, no chills, or fatigue HEENT: No sore throat, no earache, no congestion, no neck pain. Cardiac: No chest pain. No palpitations. Lungs: Shortness of breath, no cough. GI: No nausea, no vomiting, no diarrhea, no constipation, no abdominal pain : No dysuria, frequency, or urgency. No hematuria. Musculoskeletal: No joint pain , no joint swelling, no extremity edema. Skin: No rash, no itching. Neuro: No headache, no dizziness, no weakness Vital Signs Vital Signs Date Time Temp Pulse Resp B/P (MAP) Pulse Ox O2 Delivery O2 Flow Rate FiO2 12/22/24 20:38 117 110/47 93 Facial BiPAP Mask 40 12/22/24 20:35 23 12/22/24 20:30 97.6 97.6 Physical Exam General: Awake, alert and oriented. No acute distress. Skin: Skin in warm, dry and intact. Appropriate color for ethnicity. HEENT: The head is normocephalic and atraumatic. Conjunctivae are clear without exudates or hemorrhage. Sclera is non-icteric. EOM are intact. No signs of nystagmus. Eyelids are normal in appearance without swelling or lesions. Oral mucosa is pink and moist Neck: The neck is supple with normal range of motion. No JVD. Cardiac: Heart rate and rhythm are normal. No murmurs, gallops, or rubs are auscultated. Respiratory: Diminished breathe sounds, bilaterally; prolong inspirations; no signs of respiratory distress. Lung sounds are clear in all lobes bilaterally without rales, rhonchi, or wheezes. Abdominal: Abdomen is soft, non-tender without distention, guarding or rigidity. Bowel sounds are present and normoactive in all four quadrants. Extremities: Upper and lower extremities are atraumatic in appearance without deformity or edema. Neurological: The patient is awake, alert and oriented to person, place, and time with normal speech. Speech is clear. There is no facial asymmetry. Psychiatric: Appropriate mood and affect. Good judgement and insight. Past Medical History PAST MEDICAL HISTORY: Anxiety, Asthma, Cancer (Polycythemia vera; unspecified lung cancer ), COPD (patient is on home oxygen 4 liters/minute through nasal cannula), UTI'S Past Medical History (Other): Acute on chronic hypoxic/hypercarbic respiratory failure PNA Sepsis Surgical History: Denies all surgeries INSTALLATION SUPERINTENDENT History: Denies all INSTALLATION SUPERINTENDENT Hx Family History Family History: Reviewed,noncontributory to illness Social History Smoker: Cigarettes Alcohol: Denies ETOH Use Drugs: Cocaine Lives In: Home Was a procedure done? Was a procedure done?: No EKG EKG : Pulse Rate (adult): 134 [place]: Normal Cardiac Rhythm: ST Block: RBBB Hypertrophy: None ST: Normal Differential Dx Considerations may include: Asthma exacerbation, COPD exacerbation, NC, PE, ACS, URI, PNA, viral syndrome, sepsis, among others X-Ray, Labs, Meds, VS Vital Signs Date Time Temp Pulse Resp B/P (MAP) Pulse Ox O2 Delivery O2 Flow Rate FiO2 12/22/24 20:38 117 110/47 93 Facial BiPAP Mask 40 12/22/24 20:35 115 23 93 Bi-Pap+ 100 100 12/22/24 20:30 97.6 115 22 112/62 (79) 93 97.6 12/22/24 19:13 134 12/22/24 18:54 24 96 Bi-Pap+ 50 50 12/22/24 18:49 126 20 97 Bi-Pap+ 100 100 12/22/24 18:49 97.6 126 20 151/89 (109) 97 97.6 12/22/24 18:41 131 151/89 100 12/22/24 18:41 98.4 134 24 125/74 (91) 96 98.4 Lab Test 12/22/24 19:55 12/22/24 19:07 12/22/24 18:59 Range/Units Troponin I High Sensitivity 21 10 </=34 ng/L White Blood Count 6.7 4.4-10.8 10^3/uL Red Blood Count 4.73 4.0-5.20 10^6/uL Hemoglobin 14.2 12.2-16.2 g/dL Hematocrit 44.0 36.0-46.0 % Mean Corpuscular Volume 93.0 80.0-100.0 fL Mean Corpuscular Hemoglobin 30.0 28.0-32.0 pg Mean Corpuscular Hemoglobin Concent 32.2 32.0-36.0 g/dL Red Cell Distribution Width 13.9 11.8-14.3 % Platelet Count 225 140-450 10^3/uL Mean Platelet Volume 8.3 6.9-10.8 fL Neutrophils (%) (Auto) 63.2 37.0-80.0 % Lymphocytes (%) (Auto) 24.0 10.0-50.0 % Monocytes (%) (Auto) 9.8 0.0-12.0 % Eosinophils (%) (Auto) 2.6 0.0-7.0 % Basophils (%) (Auto) 0.4 0.0-2.0 % Neutrophils # (Auto) 4.2 1.6-8.6 10 ^3/uL Lymphocytes # (Auto) 1.6 0.4-5.4 10 ^3/uL Monocytes # (Auto) 0.7 0-1.3 10 ^3/uL Eosinophils # (Auto) 0.2 0-0.8 10 ^3/uL Basophils # (Auto) 0 0-0.2 10 ^3/uL Nucleated Red Blood Cells 0.1 % D-Dimer, Quantitative 0.53 H 0.0-0.49 mg/L FEU Sodium Level 149 H 136-145 mmol/L Potassium Level 4.1 3.5-5.1 mmol/L Chloride Level 109 H 98-107 mmol/L Carbon Dioxide Level 31 20-31 mmol/L Anion Gap 9 5-15 Blood Urea Nitrogen 15 9-23 mg/dL Creatinine 0.75 0.550-1.02 mg/dL Glomerular Filtration Rate Calc 87 >90 mL/min BUN/Creatinine Ratio 20.0 10.0-20.0 Serum Glucose 164 H 74-106 mg/dL Lactic Acid Level 2.4 *H 0.4-2.0 mmol/L Calcium Level 9.0 8.7-10.4 mg/dL Total Bilirubin < 0.2 L 0.2-1.0 mg/dL Aspartate Amino Transferase (AST) 21 13-40 U/L Alanine Aminotransferase (ALT) 20 7-40 U/L Alkaline Phosphatase 70 46-116 U/L B-Type Natriuretic Peptide 166.13 0-100 pg/mL Total Protein 5.8 5.7-8.2 g/dL Albumin 4.1 3.2-4.8 g/dL Blood Gas Specimen Type Arterial Blood Gas Sample Site Right radial Blood Gas Patient Temperature 37.0 Arterial Blood Date Drawn [id number] Arterial Blood pH 7.205 *L 7.350-7.450 Arterial Blood Partial Pressure CO2 75.0 *H 32.0-45.0 mmHg Arterial Blood Partial Pressure O2 456.7 *H 83.0-108.0 mmHg Arterial Blood HCO3 29.0 H 21.0-28.0 mmol/L Arterial Blood Oxygen Saturation 99.5 H 94.0-98.0 % Arterial Blood Base Excess -1.2 -2.0-3.0 mmol/L Arterial Blood Oxyhemoglobin 97.9 94.0-98.0 % Arterial Blood Carboxyhemoglobin 1.1 0.5-1.5 % Arterial Blood Methemoglobin 0.5 0.0-1.5 % Ga Test Yes Blood Gas Total Hemoglobin 15.00 12.0-16.0 g/dL Blood Gas Set Respiration Rate 12.0 Blood Gas Modality Mask - bipap FiO2 % 100.0 Blood Gas EPAP 5 Blood Gas IPAP 12 Blood Gas Comments Blood Gas Critical Value Read Back yes Blood Gas Notified Whom md satnam bergeron Blood Gas Notified Time [id number] Blood Gas Notified By tami cabral Current Medications Medications (Trade) Dose Ordered Sig/Timothy Route Start Time Stop Time Status Last Admin Sodium Chloride 1,000 ml @ 1,000 mls/hr Q1H ONCE IV 12/22/24 19:00 12/22/24 19:59 DC 12/22/24 19:00 Albuterol (Ventolin Medneb) 5 mg ONCE ONCE NEB 12/22/24 19:00 12/22/24 19:01 DC 12/22/24 19:11 Ipratropium [place] (Atrovent Medneb) 0.5 mg ONCE ONCE NEB 12/22/24 19:00 12/22/24 19:01 DC 12/22/24 19:11 Vancomycin HCl 250 ml @ 250 mls/hr ONCE ONCE IV 12/22/24 20:00 12/22/24 20:59 DC 12/22/24 20:45 Ceftriaxone Sodium 50 ml @ 100 mls/hr ONCE ONCE IV 12/22/24 20:00 12/22/24 20:29 DC 12/22/24 20:30 Sodium Chloride 1,430 ml @ 1,430 mls/hr Q1H ONCE IV 12/22/24 20:00 12/22/24 20:59 DC 12/22/24 20:30 Sodium Chloride 1,000 ml @ 130 mls/hr Q7H42M ONCE IV 12/22/24 20:00 12/23/24 03:41 12/22/24 20:30 Methylprednisolone Sodium Succinate (Solu Medrol) 80 mg ONCE ONCE IV 12/22/24 20:00 12/22/24 20:01 DC 12/22/24 20:50 Time of 1ST Reevaluation: 23:25 Reevaluation 1ST: N/A Patient Education/Counseling: Other (Need for admission) Family Education/Counseling: No Family Present Sepsis Sepsis Reasesment Focused Exam Orders: Laboratory Tests 12/22/24 19:07: Lactic Acid Level 2.4 Departure 1 Departure Time of Disposition: 20:02 Impression: Primary Impression: COPD exacerbation Additional Impressions: Sepsis Hypernatremia Sinus tachycardia Pneumonia Respiratory acidosis Respiratory failure with hypercapnia Disposition: ADMITTED INPATIENT Condition: Serious Comments 69-year-old female who presented to the ED with respiratory distress. She was started on BiPAP, given DuoNebs and IV fluids. Patient is tachycardic, lactic acid elevated at 2.4. Patient's sodium is high, IV fluids fluids administered carefully in the setting of hypernatremia and suspected sepsis. Patient was initiated on antibiotics Age adjusted D-dimer is negative Patient admitted to hospitalist service for further treatment, evaluation and monitoring. Extensive evaluation was performed in attempt to identify or rule out: (See differential diagnosis section) The following tests were ordered, and results were reviewed by me and discussed with patient: (See diagnostic results section) The following test were independently interpreted by me: EKG, I reviewed and agreed with the following test results read by other providers: Chest x-ray I reviewed the following notes from the pt's past medical encounters: N/A Additional information was gathered from interviewing the following independent historians: EMS personnel Discussion of management or test interpretation with external physician/other qualified health home care provider: N/A Addressed one or more chronic illnesses with severe exacerbation, progression, or side effects of treatment: COPD exacerbation, an acute or chronic illness that poses a threat to life or bodily function: Sepsis, respiratory acidosis, acute respiratory failure, COPD exacerbation Decision regarding hospitalization or escalation of hospital level of care: Risk and benefits of admission for further treatment of patient's condition was considered. Due to patient's current clinical condition, high risk of decline and poor outcome if discharged and need for further inpatient management and monitoring, patient will be admitted to the hospital. Drug therapy requiring intensive monitoring for toxicity: N/A Parenteral controlled substances: N/A Decision regarding elective major surgery with identified patient or procedure risk factors: N/A Decision regarding emergency major surgery: N/A Decision not to resuscitate or to de-escalate care because of poor prognosis: N/A Diagnosis or treatment significantly limited by social determinants of health: N/A Critical Care Note Critical Care Time?: No Stability Stability form required: No Heart Score Heart Score: Heart Score Response (Comments) Value History Moderate Suspicious 1 EKG Normal 0 Age >65 2 Risk Factors >3 or Hx ASHD 2 Troponin Normal limit 0 Total 5 I personally scribed for SUMA BERGERON MD ([email or web address]) on 12/22/24 at 19:13. Electronically submitted by Yovani Florentino ([email or web address]). SUMA BERGERON MD Dec 22, 2024 19:13
[2024-12-22 19:26] LABS: Basophils # (auto) 0 10 ^3/uL (0-0.2); Basophils % (auto) 0.4 % (0.0-2.0); Eosinophils # (auto) 0.2 10 ^3/uL (0-0.8); Eosinophils % (auto) 2.6 % (0.0-7.0); Hemoglobin 14.2 g/dL (12.2-16.2); Lymphocytes # (auto) 1.6 10 ^3/uL (0.4-5.4); Mean Corpuscular Hgb Conc. 32.2 g/dL (32.0-36.0); Monocytes # (auto) 0.7 10 ^3/uL (0-1.3); Monocytes % (auto) 9.8 % (0.0-12.0); Neutrophils # (auto) 4.2 10 ^3/uL (1.6-8.6); Neutrophils % (auto) 63.2 % (37.0-80.0); Nucleated Red Blood Cells % 0.1 %; Platelet Count (auto) 225 10^3/uL (140-450); Red Blood Cells 4.73 10^6/uL (4.0-5.20); Red Cell Distribution Width 13.9 % (11.8-14.3); White Blood Cell 6.7 10^3/uL (4.4-10.8)
--- NOTE | 2024-12-22 19:26 | DVH ---
CHEST RADIOGRAPH Indication: Suspected Sepsis Technique: Single frontal view of the chest was obtained Comparison: XY CHEST XRAY 1 VIEW on DOS: 11/28/24, XY CHEST PORTABLE on DOS: 11/26/24, XY CHEST XRAY 1 VIEW on DOS: 07/23/24 FINDINGS: Lines and Tubes: None Lungs: Hazy increased density over the lower lung shrestha left worse than right may represent breast t issue or airspace disease. Pleura: No effusion. No pneumothorax. Cardiomediastinal contours: Unremarkable Bones: No acute osseous abnormality. IMPRESSION: 1. Hazy bibasilar airspace disease versus overlying breast tissue. HS:Y
[2024-12-22 19:37] LABS: Alanine Aminotransferase 20 U/L (7-40); Albumin 4.1 g/dL (3.2-4.8); Alkaline Phosphatase 70 U/L (46-116); Anion Gap 9 (5-15); Aspartate Aminotransferase 21 U/L (13-40); Blood Urea Nitrogen 15 mg/dL (9-23); Carbon Dioxide 31 mmol/L (20-31); Potassium 4.1 mmol/L (3.5-5.1); Total Protein 5.8 g/dL (5.7-8.2)
[2024-12-22 19:38] LABS: Bilirubin, Total < 0.2 mg/dL (0.2-1.0); Chloride 109 mmol/L (98-107); Glucose 164 mg/dL (74-106); Sodium 149 mmol/L (136-145)
[2024-12-22 19:41] LABS: Lactic Acid w/Reflex 2.4 mmol/L (0.4-2.0)
[2024-12-22 19:42] LABS: Base Excess -1.2 mmol/L (-2.0-3.0)
[2024-12-22] MEDS: SODIUM CHLORIDE 0.9% IV ONE (20:30)
[2024-12-22] MEDS: cefTRIAXone 1GM/50ML D5W 50 ML IV ONE (20:30)
[2024-12-22 20:35] VITALS: PULSE 115; RESP 23; O2SAT 93
[2024-12-22 20:38] VITALS: BP 110/47; PULSE 117; O2SAT 93
[2024-12-22] MEDS: VANCOMYCIN 1GM/200ML PM 250 ML IV ONE (20:45)
[2024-12-22] MEDS: methylPREDNISolone SOD SUCC 125 MG/2 ML VL IV ONE (20:50)
[2024-12-22] MEDS ORDERED: NITROGLYCERIN 0.4 MG SL TAB SL PRN (21:15)
[2024-12-22] MEDS ORDERED: MORPHINE SULFATE 4 MG/ML SYR/VIAL IV PRN (21:15)
[2024-12-22 21:32] LABS: Base Excess -1.3 mmol/L (-2.0-3.0)
[2024-12-22 21:36] VITALS: BP 151/89; PULSE 134; RESP 24; TEMP 97.6; O2SAT 96
[2024-12-22] MEDS: ENOXAPARIN SOD 40 MG/0.4 ML SYRINGE SC ONE (21:45)
[2024-12-22] MEDS: methylPREDNISolone SOD SUCC 40 MG/ML VL IV SCH (22:00)
--- NOTE | 2024-12-22 22:01 | DVH ---
Bilateral lower extremity venous duplex Clinical History: rule out DVT Comparison: None Technique: Duplex Doppler evaluation of the deep venous systems of both lower extremities from the common femora l veins to the popliteal veins including color Doppler and spectral/pulsed waveform analysis was perf ormed. Findings: RIGHT SIDE: The common femoral vein demonstrates appropriate compressibility and waveform variability. There is compressibility/patency of the great saphenous vein at the proximal thigh. The femoral vein demonstrates appropriate compressibility and waveform variability. The deep femoral vein demonstrates appropriate compressibility and waveform variability. The popliteal vein demonstrates appropriate compressibility and waveform variability. There is normal compressibility at the tibioperoneal trunk. LEFT SIDE: The common femoral vein demonstrates appropriate compressibility and waveform variability. There is compressibility/patency of the great saphenous vein at the proximal thigh. The femoral vein demonstrates appropriate compressibility and waveform variability. The deep femoral vein demonstrates appropriate compressibility and waveform variability. The popliteal vein demonstrates appropriate compressibility and waveform variability. There is normal compressibility at the tibioperoneal trunk. Impression: No right or left femoropopliteal venous thrombosis.
[2024-12-22 22:29] LABS: Rapid Influenza A Negative (Negative); Rapid Influenza B Negative (Negative)
[2024-12-22 22:30] LABS: COVID19 ANTIGEN SOFIA FIA POSITIVE (NEGATIVE)
--- NOTE | 2024-12-22 22:35 | DVHHPRES ---
History of Present Illness Resident Creating Document: JHJAVI DE SANTIAGOKENYATTA RESIDENT History of Present Illness Patient is a 69-year-old female with a past medical history of COPD at 3L home oxygen, emphysema, polycythemia, lung nodules pending biopsy, anxiety was brought to the ED via EMS after she had shortness of breath at home. Patient reported that since the last 2 days she has been having symptoms of cold, dry cough, chills but denied fever and worsening shortness of breath. At home she uses Trelegy Ellipta inhaler and rescue inhalers albuterol and nebulizer with albuterol/ipratropium. Patient denied any relief from the breathing treatments at home following which she called the EMS. On arrival patient was found to be saturating in the 80s with increased work of breathing and was put on BiPAP. Initially ABG was showing elevated pCO2 at 75 with respiratory acidosis not compensated. Patient reports she is minimally mobile at home and has a caregiver, does not get out of the bed usually because whenever she tries to walk feels like she is not able to breathe and she is going to . Patient reports of having on and off urinary incontinence and wears a diaper at home. Patient denied any pain in her legs/calves. She is following up with a crystal finisher at [place] and is pending biopsy of the lung nodules. Past medical history: COPD at 3L home oxygen, emphysema, polycythemia, lung nodules pending biopsy, anxiety Past surgical history: Social history: Patient lives at home and has a caregiver, denies current smoking but 50 pack year smoking history, denies current alcohol or any other drug use Home medications: Inhaler Trelegy Ellipta, albuterol/ipratropium med nebulizer, aspirin, albuterol rescue inhaler, hydroxyzine for anxiety as needed Review of Systems Review of Systems Patient seen and examined at the bedside Currently on BiPAP at 12/5 with a FiO2 40%, pulling good volumes with a respirat ory rate at 20-25 [id number] increased work of breathing with accessory muscle use but the patient is able to talk in full sentences Denies chest pain, lower extremity pain, dizziness Reports of feeling mildly anxious while on BiPAP Allergies: Coded Allergies: Sulfa Antibiotics (Verified Allergy, Unknown, 12/22/24) Medications Current Medications Medications Dose Ordered Sig/Tmiothy Route Start Time Stop Time Status Last Admin Dose Admin Nitroglycerin 0.4 mg Q5MINP PRN SL 12/22/24 21:15 Morphine Sulfate 2 mg Q30M PRN IV 12/22/24 21:15 Enoxaparin Sodium 40 mg DAILY SC 12/23/24 10:00 Levalbuterol HCl 0.625 mg Q6HR NEB 12/23/24 00:00 Ipratropium [place] 0.5 mg Q6HR NEB 12/23/24 00:00 Methylprednisolone Sodium Succinate 40 mg BID IV 12/22/24 22:00 Ceftriaxone Sodium 50 ml @ 100 mls/hr DAILY@09 IV 12/23/24 09:00 Exam Vital Signs Vital Signs Date Time Temp Pulse Resp B/P (MAP) Pulse Ox O2 Delivery O2 Flow Rate FiO2 12/22/24 20:38 117 110/47 93 Facial BiPAP Mask 40 12/22/24 20:35 23 12/22/24 20:30 97.6 97.6 Exam Gen - no pallor, no icterus, no cyanosis, no clubbing, no LAD, no edema . Skin - Patients skin is warm and dry. HEENT - normocephalic, atraumatic, dry mucous membranes. Neck - full ROM, no LAD, no JVD Pulmonary - very diminished breath sounds bilaterally, diffuse expiratory wheezing, without any crackles, no stridor. cardiovascular - S1,S2 heard, no added sounds, no murmurs heard. peripheral pulses normal radial 2+, pedal 2+. capillary refill normal <2 secs. GI - soft, nontender abdomen. no hepatospleenomegaly. Bowel sounds normoactive Neurological - Patient is A/O X 3 . Bilateral upper extremity strength 4/5, bilateral lower extremity strength 3-4/5, no facial droop, normal speech, no tremor, no sensory deficiets. Labs/Xrays Labs Test 12/22/24 21:23 12/22/24 21:10 12/22/24 19:55 12/22/24 19:07 Range/Units Blood Gas Specimen Type Arterial Blood Gas Sample Site Right radial Blood Gas Patient Temperature 37.0 Arterial Blood Date Drawn [id number] Arterial Blood pH 7.270 L 7.350-7.450 Arterial Blood Partial Pressure CO2 59.5 H 32.0-45.0 mmHg Arterial Blood Partial Pressure O2 101.1 83.0-108.0 mmHg Arterial Blood HCO3 26.7 21.0-28.0 mmol/L Arterial Blood Oxygen Saturation 97.1 94.0-98.0 % Arterial Blood Base Excess -1.3 -2.0-3.0 mmol/L Arterial Blood Oxyhemoglobin 95.6 94.0-98.0 % Arterial Blood Carboxyhemoglobin 1.2 0.5-1.5 % Arterial Blood Methemoglobin 0.3 0.0-1.5 % Ga Test Modified Blood Gas Total Hemoglobin 13.80 12.0-16.0 g/dL Blood Gas Set Respiration Rate 12.0 Blood Gas Modality Mask - bipap FiO2 % 40.0 Blood Gas EPAP 5 Blood Gas IPAP 12 Blood Gas Comments Bipap 12/5, bur 12 Troponin I High Sensitivity 21 </=34 ng/L White Blood Count 6.7 4.4-10.8 10^3/uL Red Blood Count 4.73 4.0-5.20 10^6/uL Hemoglobin 14.2 12.2-16.2 g/dL Hematocrit 44.0 36.0-46.0 % Mean Corpuscular Volume 93.0 80.0-100.0 fL Mean Corpuscular Hemoglobin 30.0 28.0-32.0 pg Mean Corpuscular Hemoglobin Concent 32.2 32.0-36.0 g/dL Red Cell Distribution Width 13.9 11.8-14.3 % Platelet Count 225 140-450 10^3/uL Mean Platelet Volume 8.3 6.9-10.8 fL Neutrophils (%) (Auto) 63.2 37.0-80.0 % Lymphocytes (%) (Auto) 24.0 10.0-50.0 % Monocytes (%) (Auto) 9.8 0.0-12.0 % Eosinophils (%) (Auto) 2.6 0.0-7.0 % Basophils (%) (Auto) 0.4 0.0-2.0 % Neutrophils # (Auto) 4.2 1.6-8.6 10 ^3/uL Lymphocytes # (Auto) 1.6 0.4-5.4 10 ^3/uL Monocytes # (Auto) 0.7 0-1.3 10 ^3/uL Eosinophils # (Auto) 0.2 0-0.8 10 ^3/uL Basophils # (Auto) 0 0-0.2 10 ^3/uL Nucleated Red Blood Cells 0.1 % D-Dimer, Quantitative 0.53 H 0.0-0.49 mg/L FEU Sodium Level 149 H 136-145 mmol/L Potassium Level 4.1 3.5-5.1 mmol/L Chloride Level 109 H 98-107 mmol/L Carbon Dioxide Level 31 20-31 mmol/L Anion Gap 9 5-15 Blood Urea Nitrogen 15 9-23 mg/dL Creatinine 0.75 0.550-1.02 mg/dL Glomerular Filtration Rate Calc 87 >90 mL/min BUN/Creatinine Ratio 20.0 10.0-20.0 Serum Glucose 164 H 74-106 mg/dL Calcium Level 9.0 8.7-10.4 mg/dL Total Bilirubin < 0.2 L 0.2-1.0 mg/dL Aspartate Amino Transferase (AST) 21 13-40 U/L Alanine Aminotransferase (ALT) 20 7-40 U/L Alkaline Phosphatase 70 46-116 U/L B-Type Natriuretic Peptide 166.13 0-100 pg/mL Total Protein 5.8 5.7-8.2 g/dL Albumin 4.1 3.2-4.8 g/dL Test 12/22/24 18:59 Range/Units Blood Gas Critical Value Read Back yes Blood Gas Notified Whom md satnam dominguez Blood Gas Notified Time [id number] Blood Gas Notified By leathersmith steph cabral Assessment/Plan Assessment/Plan Acute on chronic hypoxic respiratory failure likely due to COPD exacerbation COPD exacerbation Possible pneumonia likely due to Gram +/- bacteria Covid pneumonia Sepsis likely due to pneumonia Respiratory acidosis without compensation ? Pulmonary hypertension - chest x-ray shows bilateral hazy opacities in the lower lobes, pulmonary vascular congestion - ABG reviewed initial showed respiratory acidosis with pCO2 at 75, improving to 59 - Solu-Medrol 40 mg b.i.d. - DuoNebs q.6 hours - lower extremity venous Doppler shows no DVT, wells score 3, D-dimer very mildly elevated, PE less likely - IV ceftriaxone and doxycycline - MRSA screen pending - COVID and influenza pending Hypernatremia likely due to dehydration - urine osmolality and urine sodium pending - IV fluids PUD prophylaxis: Protonix DVT prophylaxis: Enoxaparin Goals of care discussed with the patient for over 27 minutes. Full code Time spent: 43 minutes Plan discussed with Dr. Shell Plan discussed with: Patient My Orders Orders - BITA GUTIERREZ Procedure Category Date Status Time Admit ADMIT 12/22/24 Transmitted 21:08 Nitroglycerin PHA 12/22/24 In Process Sublingual (Ntrostat 21:15 Oxygen By Nasal RT 12/22/24 Transmitted Cannula 21:08 Stat Ekg For Chest BRANDYN 12/22/24 In Process Pain 21:08 Notify Md Of Changes BRANDYN 12/22/24 In Process From Base 21:08 Insurance Verify Rep For BRANDYN 12/22/24 In Process 24 Hours 21:08 Emergency Dysrhythmia BRANDYN 12/22/24 In Process Protocol 21:08 Rhythm Strips Once BRANDYN 12/22/24 In Process Every Shift 21:08 Bilat Lower Dvt US 12/22/24 Logged 21:08 Abg W/ Co-Ox RT 12/22/24 Logged 21:08 Enoxaparin Sodium PHA 12/23/24 In Process (Lovenox) 10:00 Mrsa Screen LUZ MARIA 12/22/24 Logged 21:08 Levalbuterol Hcl PHA 12/23/24 In Process (Xopenex Medneb) 00:00 Ipratropium Medneb PHA 12/23/24 In Process (Atrovent Medneb) 00:00 Methylprednisolone PHA 12/22/24 In Process Sod Succ (Solu Medrol 22:00 Drug Screen LAB 12/22/24 Logged 21:08 Ceftriaxone 1gm/50ml PHA 12/23/24 In Process D5w (Rocephin) 09:00 Complete Blood Count LAB 12/23/24 Verified 04:00 Basic Metabolic Panel LAB 12/23/24 Verified 04:00 Morphine Sulfate PHA 12/22/24 In Process Injection 21:15 Date of Service: Dec 22, 2024 Billing Provider: AMANDA SHELL MD Common Visit Codes: [id number] INP/OBS CARE (HIGH) Secondary Visit Codes: [id number] CARE PLAN 30 MINUTES BITA GUTIERREZ RESIDENT Dec 22, 2024 22:35
[2024-12-22 22:51] VITALS: BP 113/70; PULSE 103; O2SAT 95
[2024-12-22] MEDS: PANTOPRAZOLE 40 MG TAB PO ONE (23:04)
[2024-12-23] VITALS (14 sets, daily range): BP systolic 109–140; BP diastolic 58–77; PULSE 94–108; RESP 12–22; TEMP 98.5–99.2; O2SAT 91–99
[2024-12-23] MEDS: LEVALBUTEROL HCL 1.25 MG/3 ML NEB NEB SCH ×2 (00:23→18:47)
[2024-12-23] MEDS: IPRATROPIUM BROM 0.5 MG/2.5ML INH SOL NEB SCH ×2 (00:23→18:47)
[2024-12-23] MEDS ORDERED: REMDESIVIR PER PHARMACY 0 ML IV SCH (01:15)
[2024-12-23] MEDS: DOXYCYCLINE 100 MG TAB/CAP PO ONE (01:48)
[2024-12-23 05:16] LABS: Basophils # (auto) 0 10 ^3/uL (0-0.2); Basophils % (auto) 0.3 % (0.0-2.0); Eosinophils # (auto) 0 10 ^3/uL (0-0.8); Hematocrit 42.9 % (36.0-46.0); Hemoglobin 14.1 g/dL (12.2-16.2); Lymphocytes # (auto) 0.4 10 ^3/uL (0.4-5.4); Lymphocytes % (auto) 9.4 % (10.0-50.0); Mean Corpuscular Hemoglobin 30.3 pg (28.0-32.0); Mean Corpuscular Hgb Conc. 32.9 g/dL (32.0-36.0); Mean Corpuscular Volume 92.3 fL (80.0-100.0); Monocytes # (auto) 0.1 10 ^3/uL (0-1.3); Monocytes % (auto) 1.4 % (0.0-12.0); Neutrophils # (auto) 3.6 10 ^3/uL (1.6-8.6); Neutrophils % (auto) 88.9 % (37.0-80.0); Nucleated Red Blood Cells % 0.1 %; Platelet Count (auto) 229 10^3/uL (140-450); Red Blood Cells 4.65 10^6/uL (4.0-5.20); Red Cell Distribution Width 13.8 % (11.8-14.3)
[2024-12-23 05:26] LABS: Chloride 106 mmol/L (98-107); Potassium 4.7 mmol/L (3.5-5.1); Sodium 143 mmol/L (136-145)
[2024-12-23 05:27] LABS: Anion Gap 7 (5-15); Carbon Dioxide 30 mmol/L (20-31)
[2024-12-23 05:28] LABS: Calcium 8.8 mg/dL (8.7-10.4)
[2024-12-23 05:33] LABS: BUN/Creatinine Ratio 19.7 (10.0-20.0); Blood Urea Nitrogen 12 mg/dL (9-23)
[2024-12-23 05:36] LABS: Glucose 196 mg/dL (74-106)
[2024-12-23] MEDS: PANTOPRAZOLE 40 MG TAB PO SCH (06:15)
[2024-12-23] MEDS: cefTRIAXone 1GM/50ML D5W 50 ML IV SCH (08:58)
[2024-12-23] MEDS: ENOXAPARIN SOD 40 MG/0.4 ML SYRINGE SC SCH (08:59)
[2024-12-23 09:36] LABS: Alanine Aminotransferase 17 U/L (7-40); Albumin 4.3 g/dL (3.2-4.8); Alkaline Phosphatase 61 U/L (46-116); Aspartate Aminotransferase 16 U/L (13-40); Total Protein 6.5 g/dL (5.7-8.2)
[2024-12-23 09:37] LABS: Bilirubin, Direct < 0.1 mg/dL (<0.3); Bilirubin, Total < 0.2 mg/dL (0.2-1.0)
[2024-12-23] MEDS: REMDESIVIR 200mg in NS 210mL LOADING DOSE ADULT IV ONE (11:10)
[2024-12-23] MEDS: DexAMETHasone SOD PHOS 10MG/1ML VIAL INJ IV SCH (11:18)
[2024-12-23] MEDS: hydrOXYzine 25 MG TAB or CAP PO PRN (11:33)
--- NOTE | 2024-12-23 12:24 | ECG ---
[facility] Test Date: 2024-12-22 Test Time: 18:45:01 Pat Name: ROSA MAIER Department: ED Room: 0232T Gender: F Help Desk Operator: AMISHA : [id number] Requested By: SUMA BERGERON Order Number: [id number] Reading MD: Tomas Garcia Measurements Intervals [place] Rate: 134 P: 59 VT: 96 QRS: 126 QRSD: 131 T: 5 QT: 324 QTc: 484 Interpretive Statements Sinus tachycardia Probable left atrial enlargement RBBB and LPFB Anteroseptal infarct, age indeterminate Electronically Signed On 12-25-2024 20:55:51 PDT by Tomas Garcia Please click the below link to view image of tracing.
--- NOTE | 2024-12-23 12:27 | DVHPNRES ---
Progress Note Date Seen: Dec 23, 2024 Resident Creating Document: JAY CAMP RESIDENT Has the PT tested + for MRSA If YES, has PT been informed?: No Medical Necessity Reason Pt with a Central, PICC or Fol: No Subjective Review of Systems Patient is a 69-year-old female with a past medical history of COPD at 3L home oxygen, emphysema, polycythemia, lung nodules pending biopsy, anxiety was brought to the ED via EMS after she had shortness of breath at home. Patient reported that since the last 2 days she has been having symptoms of cold, dry cough, chills but denied fever and worsening shortness of breath. At home she uses Trelegy Ellipta inhaler and rescue inhalers albuterol and nebulizer with albuterol/ipratropium. Patient denied any relief from the breathing treatments at home following which she called the EMS. On arrival patient was found to be saturating in the 80s with increased work of breathing and was put on BiPAP. Initially ABG was showing elevated pCO2 at 75 with respiratory acidosis not compensated. Patient reports she is minimally mobile at home and has a caregiver, does not get out of the bed usually because whenever she tries to walk feels like she is not able to breathe and she is going to . Patient reports of having on and off urinary incontinence and wears a diaper at home. Patient denied any pain in her legs/calves. She is following up with a senior security architect at [place] and is pending biopsy of the lung nodules. Past medical history: COPD at 3L home oxygen, emphysema, polycythemia, lung nodules pending biopsy, anxiety Past surgical history: Social history: Patient lives at home and has a caregiver, denies current smoking but 50 pack year smoking history, denies current alcohol or any other drug use Home medications: Inhaler Trelegy Ellipta, albuterol/ipratropium med nebulizer, aspirin, albuterol rescue inhaler, hydroxyzine for anxiety as needed 12/23/2024: BIPAP off in the morning, ABG: ph 7.43 pco2 47 po2 61, covid positive, O2 4LT, breathing treatments q4h, dexamethasone 6 mg Objective vital signs Vital Sign Date Time Temp Pulse Resp B/P (MAP) Pulse Ox O2 Delivery O2 Flow Rate FiO2 12/23/24 11:58 101 12 98 12/23/24 11:52 Oxymizer 5 N/A 12/23/24 08:00 98.2 115/58 (77) 98.2 Total Intake and Output 12/22/24 12/22/24 12/23/24 15:00 23:00 07:00 Intake Total 2480 ml Balance 2480 ml medications Current Medications Medications Dose Ordered Sig/Timothy Route Start Time Stop Time Status Last Admin Dose Admin Enoxaparin Sodium 40 mg DAILY SC 12/23/24 10:00 12/23/24 08:59 40 MG Levalbuterol HCl 0.625 mg Q6HR NEB 12/23/24 00:00 12/23/24 11:51 0.625 MG Ipratropium [place] 0.5 mg Q6HR NEB 12/23/24 00:00 12/23/24 11:51 0.5 MG Ceftriaxone Sodium 50 ml @ 100 mls/hr DAILY@09 IV 12/23/24 09:00 12/23/24 08:58 100 MLS/HR Pantoprazole Sodium 40 mg DAILY@0600 PO 12/23/24 06:00 12/23/24 06:15 40 MG Hydroxyzine Pamoate 25 mg Q12HP PRN PO 12/22/24 22:30 12/23/24 11:33 25 MG Remdesivir 0 ml @ 0 mls/hr PER PHARMACY IV 12/23/24 01:15 12/25/24 01:16 Doxycycline Monohydrate 100 mg Q12HR PO 12/23/24 22:00 Remdesivir 100 mg/ Sodium Chloride 250 ml @ 250 mls/hr DAILY@1500 IV 12/24/24 15:00 12/25/24 15:59 Dexamethasone Sodium Phosphate 6 mg DAILY IV 12/23/24 10:30 12/23/24 11:18 6 MG Examination Gen - no pallor, no icterus, no cyanosis, no clubbing, no LAD, no edema . Skin - Patients skin is warm and dry. HEENT - normocephalic, atraumatic, dry mucous membranes. Neck - full ROM, no LAD, no JVD Pulmonary - very diminished breath sounds bilaterally, diffuse expiratory wheezing, without any crackles, no stridor. cardiovascular - S1,S2 heard, no added sounds, no murmurs heard. peripheral pulses normal radial 2+, pedal 2+. capillary refill normal <2 secs. GI - soft, nontender abdomen. no hepatospleenomegaly. Bowel sounds normoactive Neurological - Patient is A/O X 3 . Bilateral upper extremity strength 4/5, bilateral lower extremity strength 3-4/5, no facial droop, normal speech, no tremor, no sensory deficiets. laboratory and microbiology Laboratory Tests 12/23/24 04:50 Test 12/23/24 04:50 Range/Units Serum Glucose 196 H 74-106 mg/dL Problem List/Assessment/Plan Problem List/Assessment/Plan Acute on chronic hypoxic respiratory failure likely due to COPD exacerbation COPD exacerbation Possible pneumonia likely due to Gram +/- bacteria Covid pneumonia Sepsis likely due to pneumonia Respiratory acidosis without compensation ? Pulmonary hypertension - chest x-ray shows bilateral hazy opacities in the lower lobes, pulmonary vascular congestion - ABG: ph 7.43 pco2 47 po2 61 - Dexamenthasone 6 mg - DuoNebs q.4h hours - lower extremity venous Doppler shows no DVT, wells score 3, D-dimer very mildly elevated, PE less likely - IV ceftriaxone and doxycycline - MRSA screen pending - COVID positive Hypernatremia likely due to dehydration resolved - urine osmolality and urine sodium pending - IV fluids dc PUD prophylaxis: Protonix DVT prophylaxis: Enoxaparin Goals of care discussed with the patient for over 27 minutes. Full code Time spent: 43 minutes Plan discussed with Dr. Mendoza Plan discussed with: Patient, Other (rn) My Orders My Orders Orders - JAY CAMP Procedure Category Date Status Time Abg W/ Co-Ox RT 12/23/24 Logged 06:57 Dexamethasone PHA 12/23/24 In Process Injection (Decadron 10:30 Communication Order ORDERS 12/23/24 Transmitted 12:25 Date of Service: Dec 23, 2024 Billing Provider: BRIONNA MENDOZA MD Common Visit Codes: [id number] INP/OBS CARE(HIGH) JAY CAMP RESIDENT Dec 23, 2024 12:27 BRIONNA MENDOZA MD Dec 24, 2024 14:51
[2024-12-23] MEDS ORDERED: LEVALBUTEROL HCL 1.25 MG/3 ML NEB NEB SCH (14:45)
[2024-12-23] MEDS ORDERED: IPRATROPIUM BROM 0.5 MG/2.5ML INH SOL NEB SCH (14:45)
[2024-12-23 15:24] LABS: Base Excess 5.2 mmol/L (-2.0-3.0)
[2024-12-23] MEDS: DOXYCYCLINE 100 MG TAB/CAP PO SCH (22:37)
[2024-12-24] VITALS (20 sets, daily range): BP systolic 114–143; BP diastolic 59–93; PULSE 82–142; RESP 16–22; TEMP 97.7–98.5; O2SAT 91–100
[2024-12-24] MEDS: PANTOPRAZOLE 40 MG TAB PO ONE (02:15)
[2024-12-24] MEDS: SUCRALFATE 1 GM TAB PO ONE (02:15)
[2024-12-24 06:49] LABS: Base Excess 4.9 mmol/L (-2.0-3.0)
[2024-12-24 09:02] LABS: Basophils # (auto) 0 10 ^3/uL (0-0.2); Basophils % (auto) 0.3 % (0.0-2.0); Eosinophils # (auto) 0 10 ^3/uL (0-0.8); Eosinophils % (auto) 0.2 % (0.0-7.0); Hematocrit 41.8 % (36.0-46.0); Hemoglobin 13.4 g/dL (12.2-16.2); Lymphocytes # (auto) 1.6 10 ^3/uL (0.4-5.4); Lymphocytes % (auto) 28.2 % (10.0-50.0); Mean Corpuscular Hemoglobin 29.5 pg (28.0-32.0); Mean Corpuscular Hgb Conc. 32.1 g/dL (32.0-36.0); Mean Corpuscular Volume 91.9 fL (80.0-100.0); Monocytes # (auto) 0.8 10 ^3/uL (0-1.3); Monocytes % (auto) 14.2 % (0.0-12.0); Neutrophils # (auto) 3.2 10 ^3/uL (1.6-8.6); Neutrophils % (auto) 57.1 % (37.0-80.0); Nucleated Red Blood Cells % 0.2 %; Platelet Count (auto) 240 10^3/uL (140-450); Red Blood Cells 4.54 10^6/uL (4.0-5.20); Red Cell Distribution Width 13.8 % (11.8-14.3); White Blood Cell 5.6 10^3/uL (4.4-10.8)
[2024-12-24 09:16] LABS: Alanine Aminotransferase 18 U/L (7-40); Alkaline Phosphatase 53 U/L (46-116); Anion Gap 7 (5-15); Aspartate Aminotransferase 16 U/L (13-40); Blood Urea Nitrogen 15 mg/dL (9-23); Calcium 9.3 mg/dL (8.7-10.4); Glucose 84 mg/dL (74-106)
[2024-12-24 09:18] LABS: Bilirubin, Total 0.2 mg/dL (0.2-1.0); Carbon Dioxide 34 mmol/L (20-31); Chloride 107 mmol/L (98-107); Sodium 148 mmol/L (136-145)
--- NOTE | 2024-12-24 09:44 | DVH ---
CHEST RADIOGRAPH Indication: copd Technique: Single frontal view of the chest was obtained Comparison: XY CHEST XRAY 1 VIEW on DOS: 12/22/24, XY CHEST XRAY 1 VIEW on DOS: 11/28/24, XY CHEST MATHEW BLE on DOS: 11/26/24, XY CHEST XRAY 1 VIEW on DOS: 07/23/24, XY CHEST PORTABLE on DOS: 07/20/24, XY CHEST XRAY 1 VIEW on DOS: 12/22/24 FINDINGS: Lines and Tubes: None Lungs: Hazy increased density over the lower lung shrestha left worse than right may represent breast t issue or airspace disease. Pleura: No effusion. No pneumothorax. Cardiomediastinal contours: Unremarkable Bones: No acute osseous abnormality. IMPRESSION: 1. Hazy bibasilar airspace disease versus overlying breast tissue.
[2024-12-24] MEDS: REMDESIVIR 100mg in NS 230mL (3 DAY REGIMEN) IV SCH (15:26)
--- NOTE | 2024-12-24 15:30 | DVHPNRES ---
Progress Note Date Seen: Dec 24, 2024 Resident Creating Document: JAY CAMP RESIDENT Has the PT tested + for MRSA If YES, has PT been informed?: No Medical Necessity Reason Pt with a Central, PICC or Fol: No Subjective Review of Systems Patient is a 69-year-old female with a past medical history of COPD at 3L home oxygen, emphysema, polycythemia, lung nodules pending biopsy, anxiety was brought to the ED via EMS after she had shortness of breath at home. Patient reported that since the last 2 days she has been having symptoms of cold, dry cough, chills but denied fever and worsening shortness of breath. At home she uses Trelegy Ellipta inhaler and rescue inhalers albuterol and nebulizer with albuterol/ipratropium. Patient denied any relief from the breathing treatments at home following which she called the EMS. On arrival patient was found to be saturating in the 80s with increased work of breathing and was put on BiPAP. Initially ABG was showing elevated pCO2 at 75 with respiratory acidosis not compensated. Patient reports she is minimally mobile at home and has a caregiver, does not get out of the bed usually because whenever she tries to walk feels like she is not able to breathe and she is going to . Patient reports of having on and off urinary incontinence and wears a diaper at home. Patient denied any pain in her legs/calves. She is following up with a ruby on rails developer at [place] and is pending biopsy of the lung nodules. Past medical history: COPD at 3L home oxygen, emphysema, polycythemia, lung nodules pending biopsy, anxiety Past surgical history: Social history: Patient lives at home and has a caregiver, denies current smoking but 50 pack year smoking history, denies current alcohol or any other drug use Home medications: Inhaler Trelegy Ellipta, albuterol/ipratropium med nebulizer, aspirin, albuterol rescue inhaler, hydroxyzine for anxiety as needed 12/23/2024: BIPAP off in the morning, ABG: ph 7.43 pco2 47 po2 61, covid positive, O2 4LT, breathing treatments q4h, dexamethasone 6 mg 12/24/2024: patient refused bipap at night, ABG am: ph 7.313 pco2 67.1 po2 102.3, O2 4LT, breathing pattern is improving, patient is getiing better but still requiring a lot of o2. Objective vital signs Vital Sign Date Time Temp Pulse Resp B/P (MAP) Pulse Ox O2 Delivery O2 Flow Rate FiO2 12/24/24 13:16 82 20 98 12/24/24 13:10 Nasal Cannula 4.0 12/24/24 13:10 36 12/24/24 13:00 98.3 140/85 (103) 98.3 Total Intake and Output 12/23/24 12/23/24 12/24/24 15:00 23:00 07:00 Intake Total 230 ml 240 ml 440 ml Output Total 1 ml Balance 230 ml 239 ml 440 ml medications Current Medications Medications Dose Ordered Sig/Timothy Route Start Time Stop Time Status Last Admin Dose Admin Enoxaparin Sodium 40 mg DAILY SC 12/23/24 10:00 12/24/24 09:45 40 MG Ceftriaxone Sodium 50 ml @ 100 mls/hr DAILY@09 IV 12/23/24 09:00 12/24/24 08:09 100 MLS/HR Pantoprazole Sodium 40 mg DAILY@0600 PO 12/23/24 06:00 12/24/24 06:25 40 MG Hydroxyzine Pamoate 25 mg Q12HP PRN PO 12/22/24 22:30 12/23/24 23:38 25 MG Remdesivir 0 ml @ 0 mls/hr PER PHARMACY IV 12/23/24 01:15 12/25/24 01:16 Doxycycline Monohydrate 100 mg Q12HR PO 12/23/24 22:00 12/24/24 09:45 100 MG Remdesivir 100 mg/ Sodium Chloride 250 ml @ 250 mls/hr DAILY@1500 IV 12/24/24 15:00 12/25/24 15:59 12/24/24 15:26 250 MLS/HR Dexamethasone Sodium Phosphate 6 mg DAILY IV 12/23/24 10:30 12/24/24 09:45 6 MG Ipratropium [place] 0.5 mg Q4HR NEB 12/23/24 18:00 12/24/24 13:12 0.5 MG Levalbuterol HCl 0.625 mg Q4HR NEB 12/23/24 18:00 12/24/24 13:12 0.625 MG Examination Gen - no pallor, no icterus, no cyanosis, no clubbing, no LAD, no edema . Skin - Patients skin is warm and dry. HEENT - normocephalic, atraumatic, dry mucous membranes. Neck - full ROM, no LAD, no JVD Pulmonary - very diminished breath sounds bilaterally, diffuse expiratory wheezing, without any crackles, no stridor. cardiovascular - S1,S2 heard, no added sounds, no murmurs heard. peripheral pulses normal radial 2+, pedal 2+. capillary refill normal <2 secs. GI - soft, nontender abdomen. no hepatospleenomegaly. Bowel sounds normoactive Neurological - Patient is A/O X 3 . Bilateral upper extremity strength 4/5, bilateral lower extremity strength 3-4/5, no facial droop, normal speech, no tremor, no sensory deficits. laboratory and microbiology Laboratory Tests 12/24/24 08:36 Test 12/24/24 08:36 Range/Units Serum Glucose 84 74-106 mg/dL Microbiology Date/Time Source Procedure Growth Status 12/23/24 16:30 Nose MRSA Screen - Final Complete 12/22/24 19:07 Blood Blood Culture - Preliminary NO GROWTH AFTER 24 HOURS OF INCUBATION. Resulted Problem List/Assessment/Plan Problem List/Assessment/Plan #Acute on chronic hypoxic respiratory failure likely due to COPD exacerbation #COPD exacerbation #Covid pneumonia #Possible co infection pneumonia likely due to Gram +/- bacteria #Sepsis likely due to pneumonia #Respiratory acidosis without compensation #? Pulmonary hypertension - chest x-ray shows bilateral hazy opacities in the lower lobes, pulmonary vascular congestion - Dexamenthasone 6 mg - Breathing treatments q.4h hours - lower extremity venous Doppler shows no DVT, wells score 3, D-dimer very mildly elevated, PE less likely - IV ceftriaxone and doxycycline - MRSA screen pending - COVID positive #Hypernatremia likely due to dehydration resolved #Cocaine abuse PUD prophylaxis: Protonix DVT prophylaxis: Enoxaparin Goals of care discussed with the patient for over 27 minutes. Full code Time spent: 43 minutes Plan discussed with Dr. Mendoza Plan discussed with: Patient, Other My Orders My Orders Orders - JAY CAMP Procedure Category Date Status Time Ipratropium Medneb PHA 12/23/24 In Process (Atrovent Medneb) 18:00 Levalbuterol Hcl PHA 12/23/24 In Process (Xopenex Medneb) 18:00 Chest Xray 1 View XY 12/24/24 Resulted 04:00 Abg W/ Co-Ox RT 12/24/24 Logged 06:00 Bipap/Cpap For Sleep RT 12/24/24 Logged Apnea 08:16 Date of Service: Dec 24, 2024 Billing Provider: BRIONNA MENDOZA MD Common Visit Codes: [id number] INP/OBS CARE(HIGH) JAY CAMP RESIDENT Dec 24, 2024 15:30 BRIONNA MENDOZA MD Dec 26, 2024 11:46
[2024-12-24 15:45] LABS: Urine Bacteria None Seen /hpf (None Seen)
[2024-12-24 15:53] LABS: Urine Blood Negative /uL (Negative); Urine Clarity Clear (Clear); Urine Color Colorless (Yellow); Urine Protein, UAD Negative (Negative); Urine Specific Gravity 1.007 (1.001-1.035); Urine Squamous Epithelial Cell FEW /hpf (<5); Urine Urobilinogen Normal (Negative); Urine WBC 1 /HPF (0-5); Urine pH 6.5 (5.0-9.0)
[2024-12-24 15:56] LABS: Sodium Urine 117 mmol/L (40-220)
[2024-12-24 16:04] LABS: Amphetamine Screen, Urine Neg (NEGATIVE); Barbiturate Scree,Urine Neg (NEGATIVE); Benzodiazephine Screen, Urine Neg (NEGATIVE); Cannabinoid Screen, Urine Neg (NEGATIVE); Cocaine Screen, Urine Pos (NEGATIVE); Opiate Scree,Urine Neg (NEGATIVE); Phencyclidine Screen, Urine Neg (NEGATIVE)
[2024-12-25] VITALS (22 sets, daily range): BP systolic 120–153; BP diastolic 65–86; PULSE 79–101; RESP 16–20; TEMP 36.6; O2SAT 90–100
[2024-12-25 09:38] LABS: Base Excess 7.2 mmol/L (-2.0-3.0)
[2024-12-25 10:03] LABS: Basophils # (auto) 0 10 ^3/uL (0-0.2); Basophils % (auto) 0.7 % (0.0-2.0); Eosinophils # (auto) 0 10 ^3/uL (0-0.8); Eosinophils % (auto) 0.3 % (0.0-7.0); Hematocrit 41.8 % (36.0-46.0); Hemoglobin 13.7 g/dL (12.2-16.2); Lymphocytes # (auto) 1.8 10 ^3/uL (0.4-5.4); Lymphocytes % (auto) 35.5 % (10.0-50.0); Mean Corpuscular Hemoglobin 30.2 pg (28.0-32.0); Mean Corpuscular Hgb Conc. 32.6 g/dL (32.0-36.0); Mean Corpuscular Volume 92.6 fL (80.0-100.0); Monocytes # (auto) 0.6 10 ^3/uL (0-1.3); Monocytes % (auto) 11.7 % (0.0-12.0); Neutrophils # (auto) 2.6 10 ^3/uL (1.6-8.6); Neutrophils % (auto) 51.8 % (37.0-80.0); Nucleated Red Blood Cells % 0.2 %; Platelet Count (auto) 227 10^3/uL (140-450); Red Blood Cells 4.51 10^6/uL (4.0-5.20); Red Cell Distribution Width 13.6 % (11.8-14.3); White Blood Cell 5.1 10^3/uL (4.4-10.8)
[2024-12-25 10:15] LABS: Chloride 102 mmol/L (98-107); Potassium 3.7 mmol/L (3.5-5.1); Sodium 144 mmol/L (136-145)
[2024-12-25 10:16] LABS: Anion Gap 7 (5-15)
[2024-12-25 10:17] LABS: Calcium 9.6 mg/dL (8.7-10.4)
[2024-12-25 10:22] LABS: BUN/Creatinine Ratio 28.6 (10.0-20.0); Blood Urea Nitrogen 20 mg/dL (9-23)
[2024-12-25 10:24] LABS: Carbon Dioxide 35 mmol/L (20-31); Glucose 168 mg/dL (74-106)
[2024-12-25] MEDS ORDERED: LEVO750T40 PO (11:29)
[2024-12-25] MEDS ORDERED: DEX4T PO (11:29)
[2024-12-25] MEDS: guaiFENesin 200 MG/10 ML UD PO PRN (15:43)
--- NOTE | 2024-12-25 15:43 | DVHPNRES ---
Progress Note Date Seen: Dec 25, 2024 Resident Creating Document: JAY CAMP RESIDENT Has the PT tested + for MRSA If YES, has PT been informed?: No Medical Necessity Reason Pt with a Central, PICC or Fol: No Subjective Review of Systems Patient is a 69-year-old female with a past medical history of COPD at 3L home oxygen, emphysema, polycythemia, lung nodules pending biopsy, anxiety was brought to the ED via EMS after she had shortness of breath at home. Patient reported that since the last 2 days she has been having symptoms of cold, dry cough, chills but denied fever and worsening shortness of breath. At home she uses Trelegy Ellipta inhaler and rescue inhalers albuterol and nebulizer with albuterol/ipratropium. Patient denied any relief from the breathing treatments at home following which she called the EMS. On arrival patient was found to be saturating in the 80s with increased work of breathing and was put on BiPAP. Initially ABG was showing elevated pCO2 at 75 with respiratory acidosis not compensated. Patient reports she is minimally mobile at home and has a caregiver, does not get out of the bed usually because whenever she tries to walk feels like she is not able to breathe and she is going to . Patient reports of having on and off urinary incontinence and wears a diaper at home. Patient denied any pain in her legs/calves. She is following up with a aboriginal education worker coordinator at [place] and is pending biopsy of the lung nodules. Past medical history: COPD at 3L home oxygen, emphysema, polycythemia, lung nodules pending biopsy, anxiety Past surgical history: Social history: Patient lives at home and has a caregiver, denies current smoking but 50 pack year smoking history, denies current alcohol or any other drug use Home medications: Inhaler Trelegy Ellipta, albuterol/ipratropium med nebulizer, aspirin, albuterol rescue inhaler, hydroxyzine for anxiety as needed 12/23/2024: BIPAP off in the morning, ABG: ph 7.43 pco2 47 po2 61, covid positive, O2 4LT, breathing treatments q4h, dexamethasone 6 mg 12/24/2024: patient refused bipap at night, ABG am: ph 7.313 pco2 67.1 po2 102.3, O2 4LT, breathing pattern is improving, patient is getting better but still requiring a lot of o2. 12/25/2024: patient was able to be on 3 lt, ABG am: ph 7.438 pco2 49.5 po2 49.5, O2 3LT, patient was about to be DC but had an episode of agitation and cough, not able to be DC, hold on, continue breathing treatments Objective vital signs Vital Sign Date Time Temp Pulse Resp B/P (MAP) Pulse Ox O2 Delivery O2 Flow Rate FiO2 12/25/24 13:55 82 16 98 12/25/24 13:45 Nasal Cannula 3.0 12/25/24 13:45 32 12/25/24 13:00 98.0 131/82 (98) 98.0 Total Intake and Output 12/24/24 12/24/24 12/25/24 15:00 23:00 07:00 Intake Total 50 ml 450 ml 100 ml Balance 50 ml 450 ml 100 ml medications Current Medications Medications Dose Ordered Sig/Timothy Route Start Time Stop Time Status Last Admin Dose Admin Enoxaparin Sodium 40 mg DAILY SC 12/23/24 10:00 12/25/24 09:22 40 MG Ceftriaxone Sodium 50 ml @ 100 mls/hr DAILY@09 IV 12/23/24 09:00 12/25/24 08:19 100 MLS/HR Pantoprazole Sodium 40 mg DAILY@0600 PO 12/23/24 06:00 12/25/24 06:36 40 MG Hydroxyzine Pamoate 25 mg Q12HP PRN PO 12/22/24 22:30 12/25/24 12:49 25 MG Doxycycline Monohydrate 100 mg Q12HR PO 12/23/24 22:00 12/25/24 09:22 100 MG Remdesivir 100 mg/ Sodium Chloride 250 ml @ 250 mls/hr DAILY@1500 IV 12/24/24 15:00 12/25/24 15:59 12/25/24 14:43 250 MLS/HR Dexamethasone Sodium Phosphate 6 mg DAILY IV 12/23/24 10:30 12/25/24 09:23 6 MG Ipratropium Holman 0.5 mg Q4HR NEB 12/23/24 18:00 12/25/24 13:55 0.5 MG Levalbuterol HCl 0.625 mg Q4HR NEB 12/23/24 18:00 12/25/24 13:55 0.625 MG Guaifenesin 200 mg Q6HP PRN PO 12/25/24 15:00 Examination Gen - no pallor, no icterus, no cyanosis, no clubbing, no LAD, no edema . Skin - Patients skin is warm and dry. HEENT - normocephalic, atraumatic, dry mucous membranes. Neck - full ROM, no LAD, no JVD Pulmonary - very diminished breath sounds bilaterally, diffuse expiratory wheezing, without any crackles, no stridor. cardiovascular - S1,S2 heard, no added sounds, no murmurs heard. peripheral pulses normal radial 2+, pedal 2+. capillary refill normal <2 secs. GI - soft, nontender abdomen. no hepatospleenomegaly. Bowel sounds normoactive Neurological - Patient is A/O X 3 . Bilateral upper extremity strength 4/5, bilateral lower extremity strength 3-4/5, no facial droop, normal speech, no tremor, no sensory deficits. laboratory and microbiology Laboratory Tests 12/25/24 09:35 Test 12/25/24 09:35 Range/Units Serum Glucose 168 H 74-106 mg/dL Microbiology Date/Time Source Procedure Growth Status 12/23/24 16:30 Nose MRSA Screen - Final Complete 12/22/24 19:07 Blood Blood Culture - Preliminary NO GROWTH AFTER 48 HOURS OF INCUBATION. Resulted Problem List/Assessment/Plan Problem List/Assessment/Plan #Acute on chronic hypoxic respiratory failure likely due to COPD exacerbation #COPD exacerbation #Covid pneumonia #Possible co infection pneumonia likely due to Gram +/- bacteria #Sepsis likely due to pneumonia #Respiratory acidosis without compensation #? Pulmonary hypertension - chest x-ray shows bilateral hazy opacities in the lower lobes, pulmonary vascular congestion - Dexamenthasone 6 mg - Breathing treatments q.4h hours - lower extremity venous Doppler shows no DVT, wells score 3, D-dimer very mildly elevated, PE less likely - IV ceftriaxone and doxycycline - MRSA screen pending - COVID positive -Cough medicine placed #Hypernatremia likely due to dehydration resolved #Cocaine abuse PUD prophylaxis: Protonix DVT prophylaxis: Enoxaparin Goals of care discussed with the patient for over 27 minutes. Full code Time spent: 43 minutes Plan discussed with Dr. Mendoza Plan discussed with: Patient, Other (rn) My Orders My Orders Orders - SAHNI R,JAY RESIDENT Procedure Category Date Status Time Abg W/ Co-Ox RT 12/25/24 Logged 04:00 Guaifenesin Plain PHA 12/25/24 In Process Liquid (Robitussin Leann 15:00 Date of Service: Dec 25, 2024 Billing Provider: BRIONNA MENDOZA MD Common Visit Codes: [id number] INP/OBS CARE(HIGH) JAY CAMP RESIDENT Dec 25, 2024 15:43 BRIONNA MENDOZA MD Dec 26, 2024 11:53
[2024-12-26] VITALS (8 sets, daily range): BP systolic 121–135; BP diastolic 58–70; PULSE 71–92; RESP 18–20; TEMP 97.7–98.6; O2SAT 94–100
--- NOTE | 2024-12-26 18:00 | DVHDSRES ---
Discharge Summary Date of Admission Resident Creating Document: JAY CAMP RESIDENT Dec 22, 2024 at 21:08 Date of Discharge: Dec 26, 2024 Admitting Diagnosis #Acute on chronic hypoxic respiratory failure likely due to COPD exacerbation Labs/Diagnostic Data: Laboratory Results Test 12/25/24 09:35 12/25/24 09:02 12/24/24 15:30 12/24/24 08:36 White Blood Count 5.1 10^3/uL (4.4-10.8) Red Blood Count 4.51 10^6/uL (4.0-5.20) Hemoglobin 13.7 g/dL (12.2-16.2) Hematocrit 41.8 % (36.0-46.0) Mean Corpuscular Volume 92.6 fL (80.0-100.0) Mean Corpuscular Hemoglobin 30.2 pg (28.0-32.0) Mean Corpuscular Hemoglobin Concent 32.6 g/dL (32.0-36.0) Red Cell Distribution Width 13.6 % (11.8-14.3) Platelet Count 227 10^3/uL (140-450) Mean Platelet Volume 8.5 fL (6.9-10.8) Neutrophils (%) (Auto) 51.8 % (37.0-80.0) Lymphocytes (%) (Auto) 35.5 % (10.0-50.0) Monocytes (%) (Auto) 11.7 % (0.0-12.0) Eosinophils (%) (Auto) 0.3 % (0.0-7.0) Basophils (%) (Auto) 0.7 % (0.0-2.0) Neutrophils # (Auto) 2.6 10 ^3/uL (1.6-8.6) Lymphocytes # (Auto) 1.8 10 ^3/uL (0.4-5.4) Monocytes # (Auto) 0.6 10 ^3/uL (0-1.3) Eosinophils # (Auto) 0 10 ^3/uL (0-0.8) Basophils # (Auto) 0 10 ^3/uL (0-0.2) Nucleated Red Blood Cells 0.2 % Sodium Level 144 mmol/L (136-145) Potassium Level 3.7 mmol/L (3.5-5.1) Chloride Level 102 mmol/L (98-107) Carbon Dioxide Level 35 mmol/L (20-31) Anion Gap 7 (5-15) Blood Urea Nitrogen 20 mg/dL (9-23) Creatinine 0.70 mg/dL (0.550-1.02) Glomerular Filtration Rate Calc 94 mL/min (>90) BUN/Creatinine Ratio 28.6 (10.0-20.0) Serum Glucose 168 mg/dL (74-106) Calcium Level 9.6 mg/dL (8.7-10.4) Blood Gas Specimen Type Arterial Blood Gas Sample Site Left radial Blood Gas Patient Temperature 37.0 Arterial Blood Date Drawn [id number] Arterial Blood pH 7.438 (7.350-7.450) Arterial Blood Partial Pressure CO2 49.5 mmHg (32.0-45.0) Arterial Blood Partial Pressure O2 57.7 mmHg (83.0-108.0) Arterial Blood HCO3 32.7 mmol/L (21.0-28.0) Arterial Blood Oxygen Saturation 90.1 % (94.0-98.0) Arterial Blood Base Excess 7.2 mmol/L (-2.0-3.0) Arterial Blood Oxyhemoglobin 88.8 % (94.0-98.0) Arterial Blood Carboxyhemoglobin 1.1 % (0.5-1.5) Arterial Blood Methemoglobin 0.3 % (0.0-1.5) Ga Test Yes Blood Gas Total Hemoglobin 14.60 g/dL (12.0-16.0) Blood Gas Liter Flow 3.00 Blood Gas Modality Nasal cannula Blood Gas Spontaneous Rate 20 FiO2 % 32.0 Specimen Drawn By [facility] Urine Color Colorless (Yellow) Urine Clarity Clear (Clear) Urine pH 6.5 (5.0-9.0) Urine Specific [place] 1.007 (1.001-1.035) Urine Protein Negative (Negative) Urine Ketones Negative (Negative) Urine Blood Negative /uL (Negative) Urine Nitrite Negative (Negative) Urine Bilirubin Negative (Negative) Urine Urobilinogen Normal mg/dL (Negative) Urine Leukocyte Esterase Negative /uL (Negative) Urine RBC <1 /hpf (0 - 4) Urine Microscopic WBC 1 /HPF (0-5) Urine Squamous Epithelial Cells Few /hpf (<5) Urine Bacteria None seen /hpf (None Seen) Urine Osmolality 340 mOsm/kg Urine Sodium 117 mmol/L (40-220) Urine Glucose Trace mg/dL (Normal) Urine Opiates Screen Neg (NEGATIVE) Urine Fentanyl Screen Neg (NEGATIVE) Urine Barbiturates Screen Neg (NEGATIVE) Urine Phencyclidine Screen Neg (NEGATIVE) Urine Amphetamines Screen Neg (NEGATIVE) Urine Benzodiazepines Screen Neg (NEGATIVE) Urine Cocaine Screen Pos (NEGATIVE) Urine Cannabinoids Screen Neg (NEGATIVE) Total Bilirubin 0.2 mg/dL (0.2-1.0) Aspartate Amino Transferase (AST) 16 U/L (13-40) Alanine Aminotransferase (ALT) 18 U/L (7-40) Alkaline Phosphatase 53 U/L (46-116) Total Protein 6.0 g/dL (5.7-8.2) Albumin 4.0 g/dL (3.2-4.8) Test 12/24/24 05:59 12/23/24 04:50 12/22/24 22:04 12/22/24 21:23 Blood Gas Critical Value Read Back Yes Blood Gas Notified Whom ab Alatorre md Blood Gas Notified Time [id number] Blood Gas Notified By Clearance Cutter dianelys spence Direct Bilirubin < 0.1 mg/dL (<0.3) Troponin I High Sensitivity 38 ng/L (</=34) Blood Gas Set Respiration Rate 12.0 Blood Gas EPAP 5 Blood Gas IPAP 12 Blood Gas Comments Bipap 12/5, bur 12 Test 12/22/24 21:13 12/22/24 21:10 12/22/24 19:07 Influenza Type A Antigen Negative (Negative) Influenza Type B Antigen Negative (Negative) SARS-CoV-2 Antigen (Rapid) Positive (NEGATIVE) Lactic Acid Level 1.7 mmol/L (0.4-2.0) D-Dimer, Quantitative 0.53 mg/L FEU (0.0-0.49) B-Type Natriuretic Peptide 166.13 pg/mL (0-100) Other Laboratory Tests 12/25/24 09:35 Brief Hx & Hospital Course: Patient is a 69-year-old female with a past medical history of COPD at 3L home oxygen, emphysema, polycythemia, lung nodules pending biopsy, anxiety was brought to the ED via EMS after she had shortness of breath at home. Patient reported that since the last 2 days she has been having symptoms of cold, dry cough, chills but denied fever and worsening shortness of breath. At home she uses Trelegy Ellipta inhaler and rescue inhalers albuterol and nebulizer with albuterol/ipratropium. Patient denied any relief from the breathing treatments at home following which she called the EMS. On arrival patient was found to be saturating in the 80s with increased work of breathing and was put on BiPAP. Initially ABG was showing elevated pCO2 at 75 with respiratory acidosis not compensated. Patient reports she is minimally mobile at home and has a caregiver, does not get out of the bed usually because whenever she tries to walk feels like she is not able to breathe and she is going to . Patient reports of having on and off urinary incontinence and wears a diaper at home. Patient denied any pain in her legs/calves. She is following up with a typing office worker at [place] and is pending biopsy of the lung nodules. Past medical history: COPD at 3L home oxygen, emphysema, polycythemia, lung nodules pending biopsy, anxiety Past surgical history: Social history: Patient lives at home and has a caregiver, denies current smoking but 50 pack year smoking history, denies current alcohol or any other drug use Home medications: Inhaler Trelegy Ellipta, albuterol/ipratropium med nebulizer, aspirin, albuterol rescue inhaler, hydroxyzine for anxiety as needed 12/23/2024: BIPAP off in the morning, ABG: ph 7.43 pco2 47 po2 61, covid positive, O2 4LT, breathing treatments q4h, dexamethasone 6 mg, continue IV AB 12/24/2024: patient refused bipap at night, ABG am: ph 7.313 pco2 67.1 po2 102.3, O2 4LT, breathing pattern is improving, patient is getting better but still requiring a lot of o2. 12/25/2024: patient was able to be on 3 lt, ABG am: ph 7.438 pco2 49.5 po2 49.5, O2 3LT, patient was about to be DC but had an episode of agitation and cough, not able to be DC, hold on, continue breathing treatments 12/26/2024: breathing pattern improved, patient was able to be DC DC home, she already has O2, with steroids and IV AB, complete 5 days of remdesivir, fu with pcp in 7 days and typing office worker at [facility] - no pallor, no icterus, no cyanosis, no clubbing, no LAD, no edema . Skin - Patients skin is warm and dry. HEENT - normocephalic, atraumatic, dry mucous membranes. Neck - full ROM, no LAD, no JVD Pulmonary - very diminished breath sounds bilaterally, diffuse expiratory wheezing, without any crackles, no stridor. cardiovascular - S1,S2 heard, no added sounds, no murmurs heard. peripheral pulses normal radial 2+, pedal 2+. capillary refill normal <2 secs. GI - soft, nontender abdomen. no hepatospleenomegaly. Bowel sounds normoactive Neurological - Patient is A/O X 3 . Bilateral upper extremity strength 4/5, bilateral lower extremity strength 3-4/5, no facial droop, normal speech, no tremor, no sensory deficits. Case discussed with Dr Triana Operations or Procedures CHEST RADIOGRAPH Indication: Suspected Sepsis Technique: Single frontal view of the chest was obtained Comparison: XY CHEST XRAY 1 VIEW on DOS: 11/28/24, XY CHEST PORTABLE on DOS: 11/26/24, XY CHEST XRAY 1 VIEW on DOS: 07/23/24 FINDINGS: Lines and Tubes: None Lungs: Hazy increased density over the lower lung shrestha left worse than right may represent breast tissue or airspace disease. Pleura: No effusion. No pneumothorax. Cardiomediastinal contours: Unremarkable Bones: No acute osseous abnormality. IMPRESSION: 1. Hazy bibasilar airspace disease versus overlying breast tissue. Condition at Discharge: Stable Final Diagnosis/Problems List #Acute on chronic hypoxic respiratory failure likely due to COPD exacerbation #COPD exacerbation #Covid pneumonia #Possible co infection pneumonia likely due to Gram +/- bacteria #Sepsis likely due to pneumonia #Respiratory acidosis without compensation #? Pulmonary hypertension #Hypernatremia likely due to dehydration resolved #Cocaine abuse Discharge Disposition: Home Discharge Instruct/Medications Diet: Consistent carbohydrate, Cardiac 2g Na,low cholest Activity: Light activity Follow Up/Referral: fu with pcp Medications: see precription Discharge Statement: "Patient was advised to return to the ER or call 911 if any headaches, dizziness, shortness of breath, chest pain, abdominal pain, bleeding, fevers, or worsening of medical condition. Patient was counseled about treatment plan, medications, possible side effects, patientverbalized understanding. All questions were answered to the best of my ability. This discharge took greater then 30 minutes in planning, reviewing documentation, counseling the patient, and discussing with other team members." ASSESSMENT ASSESSMENT Assessment covid acute copd exacerbation JAY CAMP RESIDENT Dec 26, 2024 18:00
== END 2024-12-26 12:26 | disposition home or self-care (01) | DRG 871 ==
LOC: EDBD 18:40 → ER 18:40 → OVERFLOW 21:08 → EAST 12-23 14:00 → TELE-EAST 12-25 19:58
PROVIDERS: ADMIT Student in an Organized Health Care Education/Training Program; ATTEND Student in an Organized Health Care Education/Training Program
PROC: 5A09357 Assistance with Respiratory Ventilation, Less than 24 Consecutive Hours, Continuous Positive Airway Pressure (ICD-10-PCS; principal; 2024-12-22)
PROC: 5A09357 Assistance with Respiratory Ventilation, Less than 24 Consecutive Hours, Continuous Positive Airway Pressure (ICD-10-PCS; 2024-12-24)
DX: A41.9 Sepsis, unspecified organism (principal); J12.82 Pneumonia due to coronavirus disease 2019; U07.1 COVID-19; J96.21 Acute and chronic respiratory failure with hypoxia; J15.69 Pneumonia due to other Gram-negative bacteria; J15.9 Unspecified bacterial pneumonia; J44.1 Chronic obstructive pulmonary disease with (acute) exacerbation; E87.29 Other acidosis; E87.0 Hyperosmolality and hypernatremia; J44.0 Chronic obstructive pulmonary disease with (acute) lower respiratory infection; I10 Essential (primary) hypertension; F17.210 Nicotine dependence, cigarettes, uncomplicated; F14.10 Cocaine abuse, uncomplicated; Z88.2 Allergy status to sulfonamides; Z79.82 Long term (current) use of aspirin; Z79.899 Other long term (current) drug therapy
CPT/HCPCS: 36415; 36600; 71045; 80048; 80053; 80076; 80307; 81001; 82805; 83605; 83880; 83935; 84300; 84484; 85025; 85379; 87040; 87081; 87426; 87804; 93005; 93306; 93970; 94640; 94660; 96365; G0378; J1100

== ENCOUNTER 2025-01-08 05:10 | Inpatient (IN) | payer OTHER, MEDICAID ==
[~2025-01-08] VITALS: Ht 157.5 cm; Wt 71.4 kg
[2025-01-08] VITALS (7 sets, daily range): BP systolic 129–131; BP diastolic 62–69; PULSE 74–136; RESP 16–26; TEMP 98.1; O2SAT 91–100
[~2025-01-08 05:10] MED LIST changes: +DEX4T PO; -DOX100T PO; +LEVO750T40 PO; -PRED20TA2 PO
[2025-01-08] MEDS: ALBUTEROL SULF 2.5 MG/0.5ML(0.5%) NEB SOLN NEB ONE (05:27)
[2025-01-08] MEDS: IPRATROPIUM BROM 0.5 MG/2.5ML INH SOL NEB ONE (05:27)
--- NOTE | 2025-01-08 05:28 | ED.PDOC ---
SOB-HPI HPI Comments 69 year old female presents to the ED via EMS with a chief complaint of shortness of breath onset yesterday. Per EMS, patient had been experiencing shortness of breath for the past day, used albuterol inhaler, breathing treatment with no improvement of symptoms. Upon EMS arrival, patient's O2 sat was 84 % on RA, was placed on c-pap on route to ED. PMHx COPD, asthma, anxiety, cancer. No other symptoms or modifying factors present at this time. Time Seen by MD: 05:10 Reviewed notes: Medications, Allergies Information Source: Patient, Emergency Med Personnel Mode of Arrival: EMS Severity: Moderate Timing: Days Duration: Since onset Context: At Rest PE Risk Factors: None History of: Asthma, COPD Prehospital treatment: Breathing Tx, C-Pap Modifying Factors: Nothing Past Medical History PAST MEDICAL HISTORY: Anxiety, Asthma, Cancer, COPD, UTI'S Surgical History: Denies all surgeries WEB SITE MANAGER History: Denies all WEB SITE MANAGER Hx Family History Family History: Reviewed,noncontributory to illness Social History Smoker: Cigarettes Alcohol: Denies ETOH Use Drugs: Cocaine Lives In: Home Constitutional: denies: chills, diaphoresis, fatigue, fever, malaise, sweats, weakness, others EENTM: denies: blurred vision, double vision, ear bleeding, ear discharge, ear drainage, ear pain, ear ringing, eye pain, eye redness, hearing loss, mouth pain, mouth swelling, nasal discharge, nose bleeding, nose congestion, nose pain, photophobia, tearing, throat pain, throat swelling, voice changes, others Respiratory: reports: shortness of breath; denies: cough, hemoptysis, or thopnea, SOB at rest, SOB with excertion, stridor, wheezing, others Cardiovascular: denies: chest pain, dizzy spells, diaphoresis, Dyspnea on exertion, edema, irregular heart beat, left arm pain, lightheadedness, palpitations, PND, syncope, others Gastrointestinal: denies: abdomen distended, abdominal pain, blood streaked bowels, constipated, diarrhea, dysphagia, difficulty swallowing, hematemesis, melena, nausea, poor appetite, poor fluid intake, rectal bleeding, rectal pain, vomiting, others Genitourinary: denies: abnormal vagina bleeding, burning, dyspareunia, dysuria, flank pain, frequency, hematuria, incontinence, pain, , vagina discharge, urgency, others Neurological: denies: dizziness, fainting, headache, left sided numbness, left sided weakness, numbness, paresthesia, pre-existing deficit, right sided numbness, right sided weakness, seizure, speech problems, tingling, tremors, weakness, others Musculoskeletal: denies: back pain, gout, joint pain, joint swelling, muscle pain, muscle stiffness, neck pain, others Integumetry: denies: bruises, change in color, change in hair/nails, dryness, laceration, lesions, lumps, rash, wounds, others Allergic/Immunocompromised: denies: Difficulty Healing, Frequent Infections, Hives, Itching, others Hematologic/Lymphatic: denies: anemia, blood clots, easy bleeding, easy bruising, swollen glands, others Endocrine: denies: excessive hunger, excessive sweating, excessive thirst, excessive urination, flushing, intolerance to cold, intolerance to heat, unexplained weight gain, unexplained weight loss, others Psychiatric: denies: anxiety, bipolar disorder, depression, hopeless, panic disorder, schizophrenia, sleepless, suicidal, others All Other Systems: Reviewed and Negative Physical Exam General Appearance: Moderate Distress, Normal HEENT: Normal ENT Inspection, Pharynx Normal, TMs Normal Neck: Full Range of Motion, Non-Tender, Normal, Normal Inspection Respiratory: Chest Non-Tender, Wheezing (bilateral ), Other (Tachypneic) Cardiovascular: No Edema, No JVD, No Murmur, No Gallop, Normal Peripheral Pulses, Tachycardia Breast Exam: Deferred Gastrointestinal: No Organomegaly, Non Tender, No Pulsatile Mass, Normal Bowel Sounds, Soft Genitalia: Deferred Pelvic: Deferred Rectal: Deferred Extremities: No calf tenderness, Normal capillary refill, Normal inspection, Normal range of motion, Non-tender, No pedal edema Musculoskeletal : Apperance: Normal Neurologic: Alert, overhead door technician II-XII nml as Tested, No Motor Deficits, Normal Affect, Normal Mood, No Sensory Deficits Cerebellar Function: Normal Reflexes: Normal Skin: Dry, Normal Color, Warm Lymphatic: No Adenopathy Was a procedure done? Was a procedure done?: No Differential Dx Differential Diagnosis: CHF, COPD, Pneumonia X-Ray, Labs, Meds, VS Vital Signs Date Time Temp Pulse Resp B/P (MAP) Pulse Ox O2 Delivery O2 Flow Rate FiO2 6/25/25 05:31 99.0 130 30 172/85 (114) 97 99.0 01/08/25 05:27 25 100 Bi-Pap+ 50 50 Lab Test 01/08/25 05:13 Range/Units White Blood Count Pending Red Blood Count Pending Hemoglobin Pending Hematocrit Pending Mean Corpuscular Volume Pending Mean Corpuscular Hemoglobin Pending Mean Corpuscular Hemoglobin Concent Pending Red Cell Distribution Width Pending Platelet Count Pending Mean Platelet Volume Pending Neutrophils (%) (Auto) Pending Lymphocytes (%) (Auto) Pending Monocytes (%) (Auto) Pending Basophils (%) (Auto) Pending Neutrophils # (Auto) Pending Lymphocytes # (Auto) Pending Monocytes # (Auto) Pending Sodium Level Pending Potassium Level Pending Chloride Level Pending Carbon Dioxide Level Pending Anion Gap Pending Blood Urea Nitrogen Pending Creatinine Pending Glomerular Filtration Rate Calc Pending BUN/Creatinine Ratio Pending Serum Glucose Pending Calcium Level Pending Troponin I High Sensitivity Pending B-Type Natriuretic Peptide Pending Current Medications Medications (Trade) Dose Ordered Sig/Timothy Route Start Time Stop Time Status Last Admin Albuterol (Ventolin Medneb) 5 mg ONCE ONCE NEB 01/08/25 05:30 01/08/25 05:31 DC 01/08/25 05:27 Ipratropium [place] (Atrovent Medneb) 0.5 mg ONCE ONCE NEB 01/08/25 05:30 01/08/25 05:31 DC 01/08/25 05:27 Methylprednisolone Sodium Succinate (Solu Medrol) 62.5 mg ONCE ONCE IV 01/08/25 05:30 01/08/25 05:31 DC 01/08/25 05:31 Time of 1ST Reevaluation: 05:40 Reevaluation 1ST: Unchanged Patient Education/Counseling: Diagnosis, Treatment, Prognosis Family Education/Counseling: No Family Present SEPSIS Sepsis Screen Physician Orders B-Type Natriuretic Peptide (01/08/25 05:23) Basic Metabolic Panel (01/08/25 05:23) Complete Blood Count (01/08/25 05:23) Troponin-I Hs (01/08/25 05:23) Chest Portable (01/08/25 05:23) Electrocardigram (01/08/25 05:23) Troponin-I Hs (01/08/25 06:23) Troponin-I Hs (01/08/25 08:23) Electrocardigram (01/08/25 06:23) Electrocardigram (01/08/25 08:23) Vital Signs Date Time Temp Pulse Resp B/P (MAP) Pulse Ox O2 Delivery O2 Flow Rate FiO2 01/08/25 05:31 99.0 130 30 172/85 (114) 97 99.0 01/08/25 05:27 25 100 Bi-Pap+ 50 50 Laboratory Tests Test 01/08/25 05:13 White Blood Count Pending Medications Medications Dose Ordered Sig/Timothy Route Start Time Stop Time Status Last Admin Dose Admin Albuterol 5 mg ONCE ONCE NEB 01/08/25 05:30 01/08/25 05:31 DC 01/08/25 05:27 Ipratropium [place] 0.5 mg ONCE ONCE NEB 01/08/25 05:30 01/08/25 05:31 DC 01/08/25 05:27 Methylprednisolone Sodium Succinate 62.5 mg ONCE ONCE IV 01/08/25 05:30 01/08/25 05:31 DC 01/08/25 05:31 Departure 1 Departure Time of Disposition: 05:45 (Patient presented with acute shortness of breath concerning for acute on chronic COPD Exacerbation, Pneumonia, ACS, CHF, Pneumothorax. Less likely PE, Dissection. Data: 1. I ordered and reviewed the result of at least 3 labs including a CBC, BMP, and Troponin. 2. I independently interpreted the following tests: Chest X-ray shows .Risk:This p atient has a high risk of morbidity due to further diagnostic testing or treatment and may suffer from respiratory or cardiac etiology . Workup reveals a likely COPD Exacerbation and patient should be admitted for further workup. and possible expert consultation.) Impression: Primary Impression: Acute on chronic respiratory failure with hypercapnia Additional Impression: Shortness of breath Disposition: ADMITTED INPATIENT Admit to: Med Surg Condition: Guarded Critical Care Note Critical Care Time?: Yes Critical care comment: Acute on chronic respiratory failure Authorized and Performed by: Abhishek Hampton MD Total critical care time: Approximately 42 minutes Due to a high probability of clinically significant, life threatening deterioration, the patient required my highest level of preparedness to interv young emergently and I personally spent this critical care time directly and personally managing the patient. This critical care time included obtaining a history; examining the patient; pulse oximetry; ordering and review of studies; arranging urgent treatment with development of a management plan; evaluation of patient's response to treatment; frequent reassessment; and, discussions with other providers. This critical care time was performed to assess and manage the high probability of imminent, life-threatening deterioration that could result in multi-organ failure. It was exclusive of separately billable procedures and treating other patients and teaching time. Please see my other sections and the rest of the note for further information on patient assessment and treatment. Stability Stability form required: No Heart Score Heart Score: Heart Score Response (Comments) Value History N/A 0 EKG N/A 0 Age N/A 0 Risk Factors N/A 0 Troponin N/A 0 Total 0 I personally scribed for ABHISHEK HAMPTON MD ([email or web address]) on 01/08/25 at 05:28. Elec tronically submitted by Kim Diamond ([email or web address]). ABHISHEK HAMPTON MD Jan 08, 2025 05:28
[2025-01-08] MEDS: AZITHROMYCIN 250 MG TAB PO ONE (05:30)
[2025-01-08] MEDS: methylPREDNISolone SOD SUCC 125 MG/2 ML VL IV ONE (05:31)
--- NOTE | 2025-01-08 05:40 | DVH ---
CHEST RADIOGRAPH Indication: sob Technique: Single frontal view of the chest was obtained COMPARISON: XY CHEST XRAY 1 VIEW on DOS: 12/24/24, XY CHEST XRAY 1 VIEW on DOS: 12/22/24, XY CHEST XRAY 1 VIEW on DOS: 11/28/24, XY CHEST PORTABLE on DOS: 11/26/24, XY CHEST XRAY 1 VIEW on DOS: 07/23/24 FINDINGS: Lines and Tubes: None Lungs: Patchy bilateral airspace disease Pleura: No effusion. No pneumothorax. Cardiomediastinal contours: Unremarkable Bones: Unremarkable IMPRESSION: Pulmonary vascular congestion or viral pneumonias
[2025-01-08 05:55] LABS: Basophils # (auto) 0.1 10 ^3/uL (0-0.2); Basophils % (auto) 0.4 % (0.0-2.0); Eosinophils # (auto) 0.1 10 ^3/uL (0-0.8); Eosinophils % (auto) 0.8 % (0.0-7.0); Hemoglobin 14.6 g/dL (12.2-16.2); Lymphocytes # (auto) 3.2 10 ^3/uL (0.4-5.4); Lymphocytes % (auto) 23.9 % (10.0-50.0); Mean Corpuscular Hemoglobin 29.9 pg (28.0-32.0); Mean Corpuscular Hgb Conc. 32.4 g/dL (32.0-36.0); Mean Corpuscular Volume 92.3 fL (80.0-100.0); Monocytes # (auto) 1.2 10 ^3/uL (0-1.3); Monocytes % (auto) 8.7 % (0.0-12.0); Neutrophils # (auto) 8.9 10 ^3/uL (1.6-8.6); Neutrophils % (auto) 66.2 % (37.0-80.0); Platelet Count (auto) 221 10^3/uL (140-450); Red Blood Cells 4.88 10^6/uL (4.0-5.20); Red Cell Distribution Width 14.6 % (11.8-14.3); White Blood Cell 13.5 10^3/uL (4.4-10.8)
[2025-01-08 06:04] LABS: Chloride 107 mmol/L (98-107); Potassium 3.9 mmol/L (3.5-5.1); Sodium 146 mmol/L (136-145)
[2025-01-08 06:05] LABS: Anion Gap 9 (5-15); Calcium 8.9 mg/dL (8.7-10.4); Carbon Dioxide 30 mmol/L (20-31)
[2025-01-08 06:10] LABS: BUN/Creatinine Ratio 26.6 (10.0-20.0); Blood Urea Nitrogen 21 mg/dL (9-23)
[2025-01-08 06:23] LABS: Glucose 153 mg/dL (74-106)
--- NOTE | 2025-01-08 06:57 | ECG ---
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
--- NOTE | 2025-01-08 06:57 | ECG ---
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
[2025-01-08 08:03] LABS: Base Excess 2.4 mmol/L (-2.0-3.0)
[2025-01-08] MEDS ORDERED: NITROGLYCERIN 0.4 MG SL TAB SL PRN (09:15)
[2025-01-08] MEDS ORDERED: DOCUSATE SOD 100 MG CAP PO PRN (09:15)
[2025-01-08] MEDS ORDERED: MORPHINE SULFATE INJ 2 MG/ml SYRG IV PRN (09:15)
[2025-01-08] MEDS ORDERED: HYDROcodone-ACET 5/325MG TAB PO PRN (09:15)
[2025-01-08] MEDS ORDERED: FLUT1AER3 PO (09:23)
[2025-01-08] MEDS ORDERED: GLIP5TAB21 PO (09:23)
--- NOTE | 2025-01-08 09:54 | DVHHP2 ---
History of Present Illness Reason for Visit: Shortness of breath History of Present Illness Marie Ybarra is a 69-year-old female with past medical history of COPD, diabetes, anxiety, asthma, home oxygen at 3.5L/NC, who was brought to the hospital via EMS for shortness of breath. Patient states she has been experie ncing shortness of breath for about a week. She follows with pulmonology and states they have been changing her medications. She feels she has been getting worse since the medication changes. She called for EMS due to the worsening of shortness of breath. According to EMS when they arrived at her house she was saturating in the low 80's on room air. Pulmonary: COPD Endocrine: Diabetes Past Surgical History: Tonsillectomy Smoke: Quit (1 year ago) ALCOHOL: rare Drugs: Cocaine Lives: with Family Domestic Violence: Neg Review of Systems Constitutional: No: Fever, Chills, Sweats, Weakness, Malaise, Other Eyes: No: Pain, Vision change, Conjunctivae inflammation, Eyelid inflammation, Other, Redness ENT: No: Ear pain, Ear discharge, Nose pain, Nose discharge, Nose congestion, Mouth pain, Mouth swelling, Throat pain, Throat swelling, Other Respiratory: Shortness of breath, SOB with excertion, Wheezing; No: Cough, Dry, Hemoptysis, Pleuritic Pain, Sputum, Wheezing, Other Cardiovascular: No: Chest Pain, Palpitations, Orthopnea, Paroxysmal Noc. Dyspnea, Edema, Lt Headedness, Other Gastrointestinal: No: Nausea, Vomiting, Abdominal Pain, Diarrhea, Constipation, Melena, Hematochezia, Other Genitourinary: No Dysuria, No Frequency, No Incontinence, No Hematuria, No Retention, No Other Musculoskeletal: No: other, neck pain, shoulder pain, arm pain, back pain, hand pain, leg pain, foot pain Skin: No: Rash, Lesions, Jaundice, Bruising, Other Neurological: No: Weakness, Numbness, Incoordination, Change in speech, Confusion, Seizures, Other Allergies: Coded Allergies: Sulfa Antibiotics (Verified Allergy, Unknown, 12/22/24) Medications Current Medications Medications Dose Ordered Sig/Timothy Route Start Time Stop Time Status Last Admin Dose Admin Acetaminophen/ Hydrocodone Bitart 1 tab Q4HP PRN PO 01/08/25 09:15 UNV Ondansetron HCl 4 mg Q4HP PRN IV 01/08/25 09:15 UNV Exam Vital Signs Vital Signs Date Time Temp Pulse Resp B/P (MAP) Pulse Ox O2 Delivery O2 Flow Rate FiO2 01/08/25 08:36 109 23 91 Bi-Pap+ 30 30 01/08/25 08:00 97.9 122/67 (85) 97.9 General Appearance: Alert, Oriented X3, Cooperative, moderate distress HEENT: Atraumatic, PERRLA Respiratory: Other (Diminished breath sounds) Cardiovascular: Regular rate, Normal S1, Normal S2 Abdominal: Normal bowel sounds, Soft, No tenderness, No hepatospenomegaly Extremities: No clubbing, No cyanosis, No edema, Normal pulses, No tenderness/swelling Skin: No rashes, No breakdown, No significant lesion Neuro: Normal gait, Normal speech, Strength at 5/5 X4 ext, Normal tone Psych/Mental Status: Mental status NL, Mood NL Labs/Xrays Labs Test 01/08/25 08:27 01/08/25 07:45 01/08/25 05:13 Range/Units Troponin I High Sensitivity 37 *H </=34 ng/L Blood Gas Specimen Type Arterial Blood Gas Sample Site Right radial Blood Gas Patient Temperature 37.0 Arterial Blood Date Drawn [id number] Arterial Blood pH 7.275 L 7.350-7.450 Arterial Blood Partial Pressure CO2 69.0 *H 32.0-45.0 mmHg Arterial Blood Partial Pressure O2 149.9 H 83.0-108.0 mmHg Arterial Blood HCO3 31.3 H 21.0-28.0 mmol/L Arterial Blood Oxygen Saturation 99.1 H 94.0-98.0 % Arterial Blood Base Excess 2.4 -2.0-3.0 mmol/L Arterial Blood Oxyhemoglobin 96.9 94.0-98.0 % Arterial Blood Carboxyhemoglobin 1.8 H 0.5-1.5 % Arterial Blood Methemoglobin 0.4 0.0-1.5 % Ga Test Yes Blood Gas Total Hemoglobin 14.60 12.0-16.0 g/dL Blood Gas Set Respiration Rate 12.0 Blood Gas Modality Mask - bipap FiO2 % 50.0 Blood Gas EPAP 5 Blood Gas IPAP 12 Blood Gas Critical Value Read Back Yes Blood Gas Notified Whom gallo Barron np Blood Gas Notified Time [id number] Blood Gas Notified By Quantitative Analyst josette rebekah White Blood Count 13.5 H 4.4-10.8 10^3/uL Red Blood Count 4.88 4.0-5.20 10^6/uL Hemoglobin 14.6 12.2-16.2 g/dL Hematocrit 45.0 36.0-46.0 % Mean Corpuscular Volume 92.3 80.0-100.0 fL Mean Corpuscular Hemoglobin 29.9 28.0-32.0 pg Mean Corpuscular Hemoglobin Concent 32.4 32.0-36.0 g/dL Red Cell Distribution Width 14.6 H 11.8-14.3 % Platelet Count 221 140-450 10^3/uL Mean Platelet Volume 8.5 6.9-10.8 fL Neutrophils (%) (Auto) 66.2 37.0-80.0 % Lymphocytes (%) (Auto) 23.9 10.0-50.0 % Monocytes (%) (Auto) 8.7 0.0-12.0 % Eosinophils (%) (Auto) 0.8 0.0-7.0 % Basophils (%) (Auto) 0.4 0.0-2.0 % Neutrophils # (Auto) 8.9 H 1.6-8.6 10 ^3/uL Lymphocytes # (Auto) 3.2 0.4-5.4 10 ^3/uL Monocytes # (Auto) 1.2 0-1.3 10 ^3/uL Eosinophils # (Auto) 0.1 0-0.8 10 ^3/uL Basophils # (Auto) 0.1 0-0.2 10 ^3/uL Nucleated Red Blood Cells 0.0 % Sodium Level 146 H 136-145 mmol/L Potassium Level 3.9 3.5-5.1 mmol/L Chloride Level 107 98-107 mmol/L Carbon Dioxide Level 30 20-31 mmol/L Anion Gap 9 5-15 Blood Urea Nitrogen 21 9-23 mg/dL Creatinine 0.79 0.550-1.02 mg/dL Glomerular Filtration Rate Calc 81 >90 mL/min BUN/Creatinine Ratio 26.6 H 10.0-20.0 Serum Glucose 153 H 74-106 mg/dL Calcium Level 8.9 8.7-10.4 mg/dL B-Type Natriuretic Peptide 146.70 0-100 pg/mL CHEST RADIOGRAPH FINDINGS: Lines and Tubes: None Lungs: Patchy bilateral airspace disease Pleura: No effusion. No pneumothorax. Cardiomediastinal contours: Unremarkable Bones: Unremarkable IMPRESSION: Pulmonary vascular congestion or viral pneumonias Assessment/Plan Assessment/Plan Assessment: Acute on chronic respiratory failure with hypercapnia, Leukocytosis, Hyperglycemia, COPD, Diabetes, Plan: Admit to Tele, BiPAP, Breathing treatments as needed, Supplemental oxygen as needed, IV anabiotics, IV steroids, Home medications reconciled, Plan discussed with: Patient My Orders Orders - GALLO BARRON [employer] Procedure Category Date Status Time Urinalysis LAB 01/08/25 Logged 07:52 Drug Screen LAB 01/08/25 Logged 07:52 Admit ADMIT 01/08/25 Transmitted 09:10 Code Status CODE 01/08/25 Transmitted 09:10 2 Gm Sodium Diet DIET 01/08/25 Transmitted Breakfast Hydrocodone-Acet PHA 01/08/25 Transmitted 5/325mg Tab ([place] 09:15 Ondansetron Hcl PHA 01/08/25 Transmitted (Zofran) 09:[address] [facility] 01/08/25 Transmitted Capsule (Colace 09:15 Complete Blood Count LAB 01/09/25 Verified 04:00 Comprehensive LAB 01/09/25 Verified Metabolic Panel 04:00 Condition: Serious BRANDYN 01/08/25 Transmitted 09:10 Acetaminophen Tablet PHA 01/08/25 Transmitted (Tylenol Tablet) 09:15 Nitroglycerin PHA 01/08/25 Transmitted Sublingual (Ntrostat 09:15 Morphine Sulfate PHA 01/08/25 Transmitted Injection 09:15 Stat Ekg For Chest [facility] 01/08/25 Transmitted Pain 09:10 Notify Md Of Changes [facility] 01/08/25 Transmitted From Base 09:10 Operations Section Manager For [facility] 01/08/25 Transmitted 24 Hours 09:10 Emergency Dysrhythmia [facility] 01/08/25 Transmitted Protocol 09:10 Rhythm Strips Once [facility] 01/08/25 Transmitted Every Shift 09:10 Oxygen By Nasal RT 01/08/25 Transmitted Cannula 09:10 (Nf) Aspirin (Aspirin PHA 01/08/25 Transmitted Low Strength) 10:00 (Nf) Hydroxyzine Hcl PHA 01/08/25 Transmitted 10:00 (Nf) Tiotropium PHA 01/08/25 Transmitted [place] Monohydrate 10:00 Date of Service: Jan 08, 2025 Billing Provider: GALLO BARRON Common Visit Codes: [id number] INP/OBS CARE (MOD) GALLO BARRON Jan 08, 2025 09:54
[2025-01-08] MEDS ORDERED: PATIENTS OWN MEDICATION (Hydroxyzine Hcl 25 MG) PO SCH (10:00)
[2025-01-08] MEDS: TIOTROPIUM BROMIDE MONOHYDRATE IN SCH (10:00)
[2025-01-08] MEDS ORDERED: PATIENTS OWN MEDICATION (Aspirin (Aspirin Low Strength) 81 MG) PO SCH (10:00)
[2025-01-08] MEDS: Fluticasone-Umeclidinium-Vilan (Trelegy Ellipta 100-62.5-25 Mcg/I PO SCH (10:00)
[2025-01-08] MEDS: ASPirin-EC 81 mg tab PO SCH (10:00)
[2025-01-08] MEDS: glipiZIDE 5 MG TAB PO SCH (10:00)
[2025-01-08] MEDS: hydrOXYzine 25 MG TAB or CAP PO SCH (10:00)
[2025-01-08] MEDS: cefTRIAXone 1GM/50ML D5W 50 ML IV ONE (10:00)
[2025-01-08 10:17] LABS: Urine Bacteria None Seen /hpf (None Seen)
[2025-01-08 10:32] LABS: Urine Blood Negative /uL (Negative); Urine Clarity Clear (Clear); Urine Color Light-Yellow (Yellow); Urine Hyaline Cast FEW /lpf (0 - 2); Urine Mucus FEW (None Seen); Urine Protein, UAD 1+ (Negative); Urine Specific Gravity 1.023 (1.001-1.035); Urine Squamous Epithelial Cell FEW /hpf (<5); Urine Urobilinogen Normal (Negative); Urine WBC 2 /HPF (0-5); Urine pH 5.5 (5.0-9.0)
[2025-01-08 10:54] LABS: Amphetamine Screen, Urine Neg (NEGATIVE); Barbiturate Scree,Urine Neg (NEGATIVE); Benzodiazephine Screen, Urine Neg (NEGATIVE); Cannabinoid Screen, Urine Neg (NEGATIVE); Cocaine Screen, Urine Pos (NEGATIVE); Opiate Scree,Urine Neg (NEGATIVE); Phencyclidine Screen, Urine Neg (NEGATIVE)
[2025-01-08 14:21] LABS: Base Excess 4.6 mmol/L (-2.0-3.0)
[2025-01-08] MEDS: ALBUTEROL SULF 2.5 MG/0.5ML(0.5%) NEB SOLN NEB PRN (19:06)
[2025-01-08] MEDS: IPRATROPIUM BROM 0.5 MG/2.5ML INH SOL NEB PRN (19:06)
[2025-01-08] MEDS: methylPREDNISolone SOD SUCC 40 MG/ML VL IV SCH (22:11)
[2025-01-09] VITALS (13 sets, daily range): BP systolic 110–144; BP diastolic 47–82; PULSE 64–118; RESP 18–22; TEMP 97.4–98.6; O2SAT 91–100
[2025-01-09 07:05] LABS: Basophils # (auto) 0 10 ^3/uL (0-0.2); Basophils % (auto) 0.4 % (0.0-2.0); Eosinophils # (auto) 0 10 ^3/uL (0-0.8); Hematocrit 43.5 % (36.0-46.0); Hemoglobin 14.3 g/dL (12.2-16.2); Lymphocytes # (auto) 0.7 10 ^3/uL (0.4-5.4); Lymphocytes % (auto) 6.2 % (10.0-50.0); Mean Corpuscular Hemoglobin 30.2 pg (28.0-32.0); Mean Corpuscular Hgb Conc. 32.9 g/dL (32.0-36.0); Mean Corpuscular Volume 91.7 fL (80.0-100.0); Monocytes # (auto) 0.4 10 ^3/uL (0-1.3); Neutrophils # (auto) 9.8 10 ^3/uL (1.6-8.6); Neutrophils % (auto) 89.4 % (37.0-80.0); Nucleated Red Blood Cells % 0.1 %; Platelet Count (auto) 236 10^3/uL (140-450); Red Blood Cells 4.74 10^6/uL (4.0-5.20); Red Cell Distribution Width 14.1 % (11.8-14.3)
[2025-01-09 07:11] LABS: Alanine Aminotransferase 18 U/L (7-40); Albumin 4.3 g/dL (3.2-4.8); Alkaline Phosphatase 65 U/L (46-116); Anion Gap 8 (5-15); Aspartate Aminotransferase 10 U/L (<34); BUN/Creatinine Ratio 26.4 (10.0-20.0); Bilirubin, Total 0.4 mg/dL (0.2-1.0); Blood Urea Nitrogen 19 mg/dL (9-23); Calcium 10.3 mg/dL (8.7-10.4); Carbon Dioxide 33 mmol/L (20-31); Chloride 101 mmol/L (98-107); Glucose 232 mg/dL (74-106); Potassium 4.7 mmol/L (3.5-5.1); Sodium 142 mmol/L (136-145); Total Protein 6.3 g/dL (5.7-8.2)
[2025-01-09] MEDS: cefTRIAXone 1GM/50ML D5W 50 ML IV SCH (09:00)
[2025-01-09] MEDS ORDERED: AZITHROMYCIN 500MG/ 250ML 250 ML IV SCH (10:00)
--- NOTE | 2025-01-09 13:10 | DVHPN2 ---
Reviewed: Care Plan, H&P, Labs, Medications, Previous Orders, Radiology Changes from previous H/P or p: No Changes Eyes: No Pain, No Vision change, No Conjunctivae inflammation, No Eyelid inflammation, No Other, No Redness ENT: No Ear pain, No Ear discharge, No Nose pain, No Nose discharge, No Nose congestion, No Mouth pain, No Mouth swelling, No Throat pain, No Throat swelling, No Other Cardiovascular: No Chest Pain, No Palpitations, No Orthopnea, No Paroxysmal Noc. Dyspnea, No Edema, No Lt Headedness, No Other Respiratory: No Cough, No Dry; Shortness of breath, SOB with excertion, W heezing; No Hemoptysis, No Pleuritic Pain, No Sputum, No Other Gastrointestinal: No Nausea, No Vomiting, No Abdominal Pain, No Diarrhea, No Constipation, No Melena, No Hematochezia, No Other Genitourinary: No Dysuria, No Frequency, No Incontinence, No Hematuria, No Retention, No Other Musculoskeletal: No other, No neck pain, No shoulder pain, No arm pain, No back pain, No hand pain, No leg pain, No foot pain Skin: No Rash, No Lesions, No Jaundice, No Bruising, No Other Objective Vitals Vital Signs Date Time Temp Pulse Resp B/P (MAP) Pulse Ox O2 Delivery O2 Flow Rate FiO2 01/09/25 12:36 98.5 108 18 123/61 (81) 91 98.5 01/09/25 10:23 Nasal Cannula* 3 32 Intake/Output Intake and Output 01/09/25 07:00 Intake Total 350 ml Output Total 1900 ml Balance -1550 ml Intake Oral 300 ml IV Total 50 ml Output Urine Total 1900 ml Medications Current Medications Medications Dose Ordered Sig/Timothy Route Start Time Stop Time Status Last Admin Dose Admin Acetaminophen/ Hydrocodone Bitart 1 tab Q4HP PRN PO 01/08/25 09:15 Ondansetron HCl 4 mg Q4HP PRN IV 01/08/25 09:15 Docusate Sodium 100 mg BIDPRN PRN PO 01/08/25 09:15 Acetaminophen 650 mg Q6HP PRN PO 01/08/25 09:15 Nitroglycerin 0.4 mg Q5MINP PRN SL 01/08/25 09:15 Morphine Sulfate 2 mg Q30M PRN IV 01/08/25 09:15 Patient Own Medication 81 mg DAILY PO 01/08/25 10:00 UNV Patient Own Medication 25 mg BID PO 01/08/25 10:00 UNV Patient Own Medication 2 puff DAILY IN 01/08/25 10:00 Albuterol 2.5 mg Q4HPRN PRN NEB 01/08/25 09:30 01/09/25 10:23 2.5 MG Ipratropium [place] 0.5 mg Q4HPRN PRN NEB 01/08/25 09:30 01/09/25 10:23 0.5 MG Glipizide 5 mg DAILY PO 01/08/25 10:00 01/09/25 10:30 5 MG Patient Own Medication 2 puff BID PO 01/08/25 10:00 Aspirin 81 mg DAILY PO 01/08/25 10:00 01/09/25 10:30 81 MG Hydroxyzine Pamoate 25 mg BID PO 01/08/25 10:00 01/09/25 10:30 25 MG Azithromycin 250 ml @ 125 mls/hr DAILY IV 01/09/25 10:00 UNV Ceftriaxone Sodium 50 ml @ 100 mls/hr DAILY@09 IV 01/09/25 09:00 01/09/25 09:00 100 MLS/HR Methylprednisolone Sodium Succinate 40 mg BID IV 01/08/25 22:00 01/09/25 10:30 40 MG Laboratory Results Laboratory Tests 01/09/25 06:22 Chemistry Test 01/09/25 06:22 Albumin 4.3 g/dL (3.2-4.8) Calcium Level 10.3 mg/dL (8.7-10.4) Total Protein 6.3 g/dL (5.7-8.2) LFT Test 01/09/25 06:22 Alanine Aminotransferase (ALT) 18 U/L (7-40) Alkaline Phosphatase 65 U/L (46-116) Aspartate Amino Transferase (AST) 10 U/L (<34) Total Bilirubin 0.4 mg/dL (0.2-1.0) Urinalysis Test 01/08/25 07:52 Urine Color Light-yellow (Yellow) Urine Clarity Clear (Clear) Urine pH 5.5 (5.0-9.0) Urine Specific Guin 1.023 (1.001-1.035) Urine Protein 1+ (Negative) H Urine Ketones Negative (Negative) Urine Blood Negative /uL (Negative) Urine Nitrite Negative (Negative) Urine Bilirubin Negative (Negative) Urine Urobilinogen Normal mg/dL (Negative) Urine Leukocyte Esterase Negative /uL (Negative) Urine RBC 1 /hpf (0 - 4) Urine Microscopic WBC 2 /HPF (0-5) Urine Squamous Epithelial Cells Few /hpf (<5) Urine Bacteria None seen /hpf (None Seen) Urine Hyaline Casts Few /lpf (0 - 2) Urine Mucus Few (None Seen) Urine Glucose 1+ mg/dL (Normal) H Blood Gas Results Test 01/08/25 13:35 Arterial Blood pH 7.401 (7.350-7.450) FiO2 % 30.0 Labs and/or images reviewed: Labs reviewed by me, Image(s) reviewed by me Assessment/Plan Assessment/Plan Acute on chronic hypoxic respiratory failure: Oxygen by nasal cannula Acute COPD exacerbation: Albuterol Atrovent Solu-Medrol Bilateral community-acquired pneumonia: Rocephin doxycycline History of COVID pneumonia: We will check [place] and rapid flu test Sepsis likely due to pneumonia Acute respiratory acidosis without compensation Pulmonary hypertension Chronic current cocaine abuse: Counseling Time spent 70 minutes Advanced care planning time 20 minutes Patient is full code Frequent visits Plan discussed with: Patient Date of Service: Jan 09, 2025 Billing Provider: NEHEMIAS GUILLEN MD Common Visit Codes: [id number] CARE 30-74 MIN NEHEMIAS GUILLEN MD Jan 09, 2025 13:10
[2025-01-09] MEDS: DOXYCYCLINE 100MG/100ML 100 ML IV SCH (14:37)
[2025-01-09 16:52] LABS: COVID19 ANTIGEN SOFIA FIA NEGATIVE (NEGATIVE); Rapid Influenza A Negative (Negative); Rapid Influenza B Negative (Negative)
[2025-01-09] MEDS: ACETAMINOPHEN 325 MG TAB PO PRN (17:10)
[2025-01-09] MEDS: IPRATROPIUM BROM 0.5 MG/2.5ML INH SOL NEB SCH (18:55)
[2025-01-09] MEDS: ALBUTEROL SULF 2.5 MG/0.5ML(0.5%) NEB SOLN NEB SCH (18:55)
[2025-01-10] VITALS (16 sets, daily range): BP systolic 118–148; BP diastolic 68–87; PULSE 90–110; RESP 16–20; TEMP 97.2–99.5; O2SAT 90–98
--- NOTE | 2025-01-10 11:45 | DVHPN2 ---
Reviewed: Care Plan, H&P, Labs, Medications, Previous Orders, Radiology Changes from previous H/P or p: No Changes Eyes: No Pain, No Vision change, No Conjunctivae inflammation, No Eyelid inflammation, No Other, No Redness ENT: No Ear pain, No Ear discharge, No Nose pain, No Nose discharge, No Nose congestion, No Mouth pain, No Mouth swelling, No Throat pain, No Throat swelling, No Other Cardiovascular: No Chest Pain, No Palpitations, No Orthopnea, No Paroxysmal Noc. Dyspnea, No Edema, No Lt Headedness, No Other Respiratory: No Cough, No Dry; Shortness of breath, SOB with excertion, W heezing; No Hemoptysis, No Pleuritic Pain, No Sputum, No Other Gastrointestinal: No Nausea, No Vomiting, No Abdominal Pain, No Diarrhea, No Constipation, No Melena, No Hematochezia, No Other Genitourinary: No Dysuria, No Frequency, No Incontinence, No Hematuria, No Retention, No Other Musculoskeletal: No other, No neck pain, No shoulder pain, No arm pain, No back pain, No hand pain, No leg pain, No foot pain Skin: No Rash, No Lesions, No Jaundice, No Bruising, No Other Objective Vitals Vital Signs Date Time Temp Pulse Resp B/P (MAP) Pulse Ox O2 Delivery O2 Flow Rate FiO2 01/10/25 10:05 91 Nasal Cannula* 3 32 01/10/25 09:00 99.5 107 20 135/68 (90) 99.5 Intake/Output Intake and Output 01/10/25 07:00 Intake Total 1710 ml Output Total 2551 ml Balance -841 ml Intake Oral 1460 ml IV Total 250 ml Output Urine Total 2550 ml Stool Total 1 ml Medications Current Medications Medications Dose Ordered Sig/Timothy Route Start Time Stop Time Status Last Admin Dose Admin Acetaminophen/ Hydrocodone Bitart 1 tab Q4HP PRN PO 01/08/25 09:15 Ondansetron HCl 4 mg Q4HP PRN IV 01/08/25 09:15 Docusate Sodium 100 mg BIDPRN PRN PO 01/08/25 09:15 Acetaminophen 650 mg Q6HP PRN PO 01/08/25 09:15 01/09/25 17:10 650 MG Nitroglycerin 0.4 mg Q5MINP PRN SL 01/08/25 09:15 Morphine Sulfate 2 mg Q30M PRN IV 01/08/25 09:15 Patient Own Medication 81 mg DAILY PO 01/08/25 10:00 UNV Patient Own Medication 25 mg BID PO 01/08/25 10:00 UNV Patient Own Medication 2 puff DAILY IN 01/08/25 10:00 Albuterol 2.5 mg Q4HPRN PRN NEB 01/08/25 09:30 01/09/25 15:44 2.5 MG Ipratropium [place] 0.5 mg Q4HPRN PRN NEB 01/08/25 09:30 01/09/25 15:44 0.5 MG Glipizide 5 mg DAILY PO 01/08/25 10:00 01/10/25 10:32 5 MG Patient Own Medication 2 puff BID PO 01/08/25 10:00 Aspirin 81 mg DAILY PO 01/08/25 10:00 01/10/25 10:31 81 MG Hydroxyzine Pamoate 25 mg BID PO 01/08/25 10:00 01/10/25 10:31 25 MG Azithromycin 250 ml @ 125 mls/hr DAILY IV 01/09/25 10:00 UNV Ceftriaxone Sodium 50 ml @ 100 mls/hr DAILY@09 IV 01/09/25 09:00 01/10/25 10:31 100 MLS/HR Methylprednisolone Sodium Succinate 40 mg BID IV 01/08/25 22:00 01/10/25 10:31 40 MG Doxycycline Hyclate 100 ml @ 50 mls/hr Q12H IV 01/09/25 13:00 01/10/25 00:29 50 MLS/HR Albuterol 2.5 mg Q6HWA NEB 01/09/25 18:00 01/10/25 11:30 2.5 MG Ipratropium [place] 0.5 mg Q6HWA NEB 01/09/25 18:00 01/10/25 11:30 0.5 MG Laboratory Results Laboratory Tests 01/09/25 06:22 Urinalysis Test 01/08/25 07:52 Urine Color Light-yellow (Yellow) Urine Clarity Clear (Clear) Urine pH 5.5 (5.0-9.0) Urine Specific [place] 1.023 (1.001-1.035) Urine Protein 1+ (Negative) H Urine Ketones Negative (Negative) Urine Blood Negative /uL (Negative) Urine Nitrite Negative (Negative) Urine Bilirubin Negative (Negative) Urine Urobilinogen Normal mg/dL (Negative) Urine Leukocyte Esterase Negative /uL (Negative) Urine RBC 1 /hpf (0 - 4) Urine Microscopic WBC 2 /HPF (0-5) Urine Squamous Epithelial Cells Few /hpf (<5) Urine Bacteria None seen /hpf (None Seen) Urine Hyaline Casts Few /lpf (0 - 2) Urine Mucus Few (None Seen) Urine Glucose 1+ mg/dL (Normal) H Labs and/or images reviewed: Labs reviewed by me, Image(s) reviewed by me Assessment/Plan Assessment/Plan Acute on chronic hypoxic respiratory failure: Oxygen by nasal cannula Acute COPD exacerbation: Albuterol Atrovent Solu-Medrol Bilateral community-acquired pneumonia: Rocephin doxycycline History of COVID pneumonia: Tiara Test negative Rapid flu test negative Sepsis likely due to pneumonia Acute respiratory acidosis without compensation Pulmonary hypertension Chronic current cocaine abuse: Counseling Time spent 60 minutes Advanced care planning time 20 minutes Patient is full code Frequent visits Lives at home with the family Frequent admissions 4 times in 2024 Plan discussed with: Patient My Orders Orders - NEHEMIAS GUILLEN MD Procedure Category Date Status Time Doxycycline PHA 01/09/25 In Process 100mg/100ml 13:00 Albuterol Medneb PHA 01/09/25 In Process (Ventolin Medneb) 18:00 Ipratropium Medneb PHA 01/09/25 In Process (Atrovent Medneb) 18:00 Date of Service: Jan 10, 2025 Billing Provider: NEHEMIAS GUILLEN MD Common Visit Codes: [id number] INP/OBS CARE(HIGH) NEHEMIAS GUILLEN MD Jan 10, 2025 11:45
[2025-01-11] VITALS (18 sets, daily range): BP systolic 126–174; BP diastolic 68–98; PULSE 91–119; RESP 18; TEMP 97.7–98.3; O2SAT 90–97
--- NOTE | 2025-01-11 11:18 | DVHPN2 ---
Reviewed: Care Plan, H&P, Labs, Medications, Previous Orders, Radiology Changes from previous H/P or p: No Changes Eyes: No Pain, No Vision change, No Conjunctivae inflammation, No Eyelid inflammation, No Other, No Redness ENT: No Ear pain, No Ear discharge, No Nose pain, No Nose discharge, No Nose congestion, No Mouth pain, No Mouth swelling, No Throat pain, No Throat swelling, No Other Cardiovascular: No Chest Pain, No Palpitations, No Orthopnea, No Paroxysmal Noc. Dyspnea, No Edema, No Lt Headedness, No Other Respiratory: No Cough, No Dry; Shortness of breath, SOB with excertion, W heezing; No Hemoptysis, No Pleuritic Pain, No Sputum, No Other Gastrointestinal: No Nausea, No Vomiting, No Abdominal Pain, No Diarrhea, No Constipation, No Melena, No Hematochezia, No Other Genitourinary: No Dysuria, No Frequency, No Incontinence, No Hematuria, No Retention, No Other Musculoskeletal: No other, No neck pain, No shoulder pain, No arm pain, No back pain, No hand pain, No leg pain, No foot pain Skin: No Rash, No Lesions, No Jaundice, No Bruising, No Other Objective Vitals Vital Signs Date Time Temp Pulse Resp B/P (MAP) Pulse Ox O2 Delivery O2 Flow Rate FiO2 01/11/25 10:05 91 Nasal Cannula 2.0 01/11/25 10:05 28 01/11/25 08:35 98.0 108 18 128/68 (88) 98.0 Intake/Output Intake and Output 01/11/25 07:00 Intake Total 1590 ml Output Total 3075 ml Balance -1485 ml Intake Oral 1440 ml IV Total 150 ml Output Urine Total 3075 ml Medications Current Medications Medications Dose Ordered Sig/Timothy Route Start Time Stop Time Status Last Admin Dose Admin Acetaminophen/ Hydrocodone Bitart 1 tab Q4HP PRN PO 01/08/25 09:15 Ondansetron HCl 4 mg Q4HP PRN IV 01/08/25 09:15 Docusate Sodium 100 mg BIDPRN PRN PO 01/08/25 09:15 Acetaminophen 650 mg Q6HP PRN PO 01/08/25 09:15 01/11/25 05:03 650 MG Nitroglycerin 0.4 mg Q5MINP PRN SL 01/08/25 09:15 Morphine Sulfate 2 mg Q30M PRN IV 01/08/25 09:15 Patient Own Medication 81 mg DAILY PO 01/08/25 10:00 UNV Patient Own Medication 25 mg BID PO 01/08/25 10:00 UNV Patient Own Medication 2 puff DAILY IN 01/08/25 10:00 Albuterol 2.5 mg Q4HPRN PRN NEB 01/08/25 09:30 01/09/25 15:44 2.5 MG Ipratropium [place] 0.5 mg Q4HPRN PRN NEB 01/08/25 09:30 01/09/25 15:44 0.5 MG Glipizide 5 mg DAILY PO 01/08/25 10:00 01/11/25 10:17 5 MG Patient Own Medication 2 puff BID PO 01/08/25 10:00 Aspirin 81 mg DAILY PO 01/08/25 10:00 01/11/25 10:17 81 MG Hydroxyzine Pamoate 25 mg BID PO 01/08/25 10:00 01/11/25 10:17 25 MG Azithromycin 250 ml @ 125 mls/hr DAILY IV 01/09/25 10:00 UNV Ceftriaxone Sodium 50 ml @ 100 mls/hr DAILY@09 IV 01/09/25 09:00 01/11/25 10:16 100 MLS/HR Methylprednisolone Sodium Succinate 40 mg BID IV 01/08/25 22:00 01/11/25 10:16 40 MG Doxycycline Hyclate 100 ml @ 50 mls/hr Q12H IV 01/09/25 13:00 01/11/25 01:50 50 MLS/HR Albuterol 2.5 mg Q6HWA [id number] 01/09/25 18:00 01/11/25 06:34 2.5 MG Ipratropium [place] 0.5 mg Q6HWA NEB 01/09/25 18:00 01/11/25 06:34 0.5 MG Laboratory Results Laboratory Tests 01/09/25 06:22 Urinalysis Test 01/08/25 07:52 Urine Color Light-yellow (Yellow) Urine Clarity Clear (Clear) Urine pH 5.5 (5.0-9.0) Urine Specific [place] 1.023 (1.001-1.035) Urine Protein 1+ (Negative) H Urine Ketones Negative (Negative) Urine Blood Negative /uL (Negative) Urine Nitrite Negative (Negative) Urine Bilirubin Negative (Negative) Urine Urobilinogen Normal mg/dL (Negative) Urine Leukocyte Esterase Negative /uL (Negative) Urine RBC 1 /hpf (0 - 4) Urine Microscopic WBC 2 /HPF (0-5) Urine Squamous Epithelial Cells Few /hpf (<5) Urine Bacteria None seen /hpf (None Seen) Urine Hyaline Casts Few /lpf (0 - 2) Urine Mucus Few (None Seen) Urine Glucose 1+ mg/dL (Normal) H Microbiology Microbiology Date/Time Source Procedure Growth Status 01/09/25 16:12 Nose MRSA Screen - Final Complete Labs and/or images reviewed: Labs reviewed by me, Image(s) reviewed by me Assessment/Plan Assessment/Plan Acute on chronic hypoxic respiratory failure: Oxygen by nasal cannula Acute COPD exacerbation: Albuterol Atrovent Solu-Medrol Bilateral community-acquired pneumonia: Rocephin doxycycline History of COVID pneumonia: Tiara Test negative Rapid flu test negative Sepsis likely due to pneumonia Acute respiratory acidosis without compensation Pulmonary hypertension Chronic current cocaine abuse: Counseling Time spent 50 minutes Advanced care planning time 20 minutes Patient is full code Frequent visits Lives at home with the family Frequent admissions 4 times in 2024 Casey Moore [phone] at bedside, is also the caregiver Plan discussed with: Patient Date of Service: Jan 11, 2025 Billing Provider: NEHEMIAS GUILLEN MD Common Visit Codes: [id number] INP/OBS CARE(HIGH) NEHEMIAS GUILLEN MD Jan 11, 2025 11:18
[2025-01-11] MEDS: ONDANSETRON HCL 4 MG/2 ML VIAL IV PRN (22:57)
[2025-01-12] VITALS (16 sets, daily range): BP systolic 121–156; BP diastolic 67–97; PULSE 107–118; RESP 14–20; TEMP 97–98.5; O2SAT 89–100
[2025-01-12] MEDS ORDERED: PROCHLORPERAZINE EDISYLATE 5 MG/ML 2ML VIAL IV PRN (01:00)
[2025-01-12] MEDS: PROCHLORPERAZINE EDISYLATE 5 MG/ML 2ML VIAL IV PRN (01:26)
[2025-01-12] MEDS: hydrALAZINE HCL 20 MG/ML VL IV PRN (01:26)
--- NOTE | 2025-01-12 12:06 | DVHPN2 ---
Reviewed: Care Plan, H&P, Labs, Medications, Previous Orders, Radiology Changes from previous H/P or p: No Changes Eyes: No Pain, No Vision change, No Conjunctivae inflammation, No Eyelid inflammation, No Other, No Redness ENT: No Ear pain, No Ear discharge, No Nose pain, No Nose discharge, No Nose congestion, No Mouth pain, No Mouth swelling, No Throat pain, No Throat swelling, No Other Cardiovascular: No Chest Pain, No Palpitations, No Orthopnea, No Paroxysmal Noc. Dyspnea, No Edema, No Lt Headedness, No Other Respiratory: No Cough, No Dry; Shortness of breath, SOB with excertion, W heezing; No Hemoptysis, No Pleuritic Pain, No Sputum, No Other Gastrointestinal: No Nausea, No Vomiting, No Abdominal Pain, No Diarrhea, No Constipation, No Melena, No Hematochezia, No Other Genitourinary: No Dysuria, No Frequency, No Incontinence, No Hematuria, No Retention, No Other Musculoskeletal: No other, No neck pain, No shoulder pain, No arm pain, No back pain, No hand pain, No leg pain, No foot pain Skin: No Rash, No Lesions, No Jaundice, No Bruising, No Other Objective Vitals Vital Signs Date Time Temp Pulse Resp B/P (MAP) Pulse Ox O2 Delivery O2 Flow Rate FiO2 01/12/25 11:26 108 14 100 01/12/25 10:10 Nasal Cannula 2.0 01/12/25 10:10 28 01/12/25 09:11 98.0 130/71 (90) 98.0 Intake/Output Intake and Output 01/12/25 07:00 Intake Total 1250 ml Output Total 3000 ml Balance -1750 ml Intake Oral 1000 ml IV Total 250 ml Output Urine Total 3000 ml # Bowel Movements 2 Medications Current Medications Medications Dose Ordered Sig/Timothy Route Start Time Stop Time Status Last Admin Dose Admin Acetaminophen/ Hydrocodone Bitart 1 tab Q4HP PRN PO 01/08/25 09:15 Ondansetron HCl 4 mg Q4HP PRN IV 01/08/25 09:15 01/11/25 22:57 4 MG Docusate Sodium 100 mg BIDPRN PRN PO 01/08/25 09:15 Acetaminophen 650 mg Q6HP PRN PO 01/08/25 09:15 01/11/25 05:03 650 MG Nitroglycerin 0.4 mg Q5MINP PRN SL 01/08/25 09:15 Morphine Sulfate 2 mg Q30M PRN IV 01/08/25 09:15 Patient Own Medication 81 mg DAILY PO 01/08/25 10:00 UNV Patient Own Medication 25 mg BID PO 01/08/25 10:00 UNV Patient Own Medication 2 puff DAILY IN 01/08/25 10:00 Albuterol 2.5 mg Q4HPRN PRN NEB 01/08/25 09:30 01/11/25 15:19 2.5 MG Ipratropium [place] 0.5 mg Q4HPRN PRN NEB 01/08/25 09:30 01/09/25 15:44 0.5 MG Glipizide 5 mg DAILY PO 01/08/25 10:00 01/12/25 09:45 5 MG Patient Own Medication 2 puff BID PO 01/08/25 10:00 Aspirin 81 mg DAILY PO 01/08/25 10:00 01/12/25 09:45 81 MG Hydroxyzine Pamoate 25 mg BID PO 01/08/25 10:00 01/12/25 09:45 25 MG Azithromycin 250 ml @ 125 mls/hr DAILY IV 01/09/25 10:00 UNV Ceftriaxone Sodium 50 ml @ 100 mls/hr DAILY@09 IV 01/09/25 09:00 01/12/25 09:44 100 MLS/HR Methylprednisolone Sodium Succinate 40 mg BID IV 01/08/25 22:00 01/12/25 09:45 40 MG Doxycycline Hyclate 100 ml @ 50 mls/hr Q12H IV 01/09/25 13:00 01/12/25 01:45 50 MLS/HR Albuterol 2.5 mg Q6HWA [facility] 01/09/25 18:00 01/12/25 11:18 2.5 MG Ipratropium [place] 0.5 mg Q6HWA [facility] 01/09/25 18:00 01/12/25 11:18 0.5 MG Prochlorperazine Edisylate 10 mg Q4HPRN PRN IV 01/12/25 01:00 01/12/25 01:26 10 MG Hydralazine HCl 10 mg Q4HPRN PRN IV 01/12/25 01:00 01/12/25 01:26 10 MG Prochlorperazine Edisylate 10 mg Q4HPRN PRN IV 01/12/25 01:00 UNV Laboratory Results Laboratory Tests 01/09/25 06:22 Urinalysis Test 01/08/25 07:52 Urine Color Light-yellow (Yellow) Urine Clarity Clear (Clear) Urine pH 5.5 (5.0-9.0) Urine Specific [place] 1.023 (1.001-1.035) Urine Protein 1+ (Negative) H Urine Ketones Negative (Negative) Urine Blood Negative /uL (Negative) Urine Nitrite Negative (Negative) Urine Bilirubin Negative (Negative) Urine Urobilinogen Normal mg/dL (Negative) Urine Leukocyte Esterase Negative /uL (Negative) Urine RBC 1 /hpf (0 - 4) Urine Microscopic WBC 2 /HPF (0-5) Urine Squamous Epithelial Cells Few /hpf (<5) Urine Bacteria None seen /hpf (None Seen) Urine Hyaline Casts Few /lpf (0 - 2) Urine Mucus Few (None Seen) Urine Glucose 1+ mg/dL (Normal) H Microbiology Microbiology Date/Time Source Procedure Growth Status 01/09/25 16:12 Nose MRSA Screen - Final Complete Labs and/or images reviewed: Labs reviewed by me, Image(s) reviewed by me Assessment/Plan Assessment/Plan Acute on chronic hypoxic respiratory failure: Oxygen by nasal cannula Acute COPD exacerbation: Albuterol Atrovent Solu-Medrol Bilateral community-acquired pneumonia: Rocephin doxycycline History of COVID pneumonia: Tiara Test negative Rapid flu test negative Sepsis likely due to pneumonia Acute respiratory acidosis without compensation Pulmonary hypertension Chronic current cocaine abuse: Counseling Time spent 50 minutes Advanced care planning time 20 minutes Patient is full code Frequent visits Lives at home with the family Frequent admissions 4 times in 2024 Casey Moore [phone] at bedside, is also the caregiver Plan discussed with: Patient Date of Service: Jan 12, 2025 Billing Provider: NEHEMIAS GUILLEN MD Common Visit Codes: [id number] INP/OBS CARE(HIGH) NEHEMIAS GUILLEN MD Jan 12, 2025 12:06
[2025-01-13] VITALS (13 sets, daily range): BP systolic 106–140; BP diastolic 56–81; PULSE 97–117; RESP 14–18; TEMP 97.6–98.2; O2SAT 87–98
[2025-01-13] MEDS ORDERED: AZIT500T66 PO (12:19)
[2025-01-13] MEDS ORDERED: PRED20TA2 PO (12:19)
--- NOTE | 2025-01-13 12:20 | DVHPN2 ---
Reviewed: Care Plan, H&P, Labs, Medications, Previous Orders, Radiology Changes from previous H/P or p: No Changes Eyes: No Pain, No Vision change, No Conjunctivae inflammation, No Eyelid inflammation, No Other, No Redness ENT: No Ear pain, No Ear discharge, No Nose pain, No Nose discharge, No Nose congestion, No Mouth pain, No Mouth swelling, No Throat pain, No Throat swelling, No Other Cardiovascular: No Chest Pain, No Palpitations, No Orthopnea, No Paroxysmal Noc. Dyspnea, No Edema, No Lt Headedness, No Other Respiratory: No Cough, No Dry; Shortness of breath, SOB with excertion, W heezing; No Hemoptysis, No Pleuritic Pain, No Sputum, No Other Gastrointestinal: No Nausea, No Vomiting, No Abdominal Pain, No Diarrhea, No Constipation, No Melena, No Hematochezia, No Other Genitourinary: No Dysuria, No Frequency, No Incontinence, No Hematuria, No Retention, No Other Musculoskeletal: No other, No neck pain, No shoulder pain, No arm pain, No back pain, No hand pain, No leg pain, No foot pain Skin: No Rash, No Lesions, No Jaundice, No Bruising, No Other Objective Vitals Vital Signs Date Time Temp Pulse Resp B/P (MAP) Pulse Ox O2 Delivery O2 Flow Rate FiO2 01/13/25 11:34 101 14 98 01/13/25 10:00 Nasal Cannula 3.0 01/13/25 10:00 32 01/13/25 08:55 97.8 106/56 (73) 97.8 Intake/Output Intake and Output 01/13/25 07:00 Intake Total 1450 ml Output Total 1700 ml Balance -250 ml Intake Oral 1200 ml IV Total 250 ml Output Urine Total 1700 ml Medications Current Medications Medications Dose Ordered Sig/Timothy Route Start Time Stop Time Status Last Admin Dose Admin Acetaminophen/ Hydrocodone Bitart 1 tab Q4HP PRN PO 01/08/25 09:15 Ondansetron HCl 4 mg Q4HP PRN IV 01/08/25 09:15 01/11/25 22:57 4 MG Docusate Sodium 100 mg BIDPRN PRN PO 01/08/25 09:15 Acetaminophen 650 mg Q6HP PRN PO 01/08/25 09:15 01/11/25 05:03 650 MG Nitroglycerin 0.4 mg Q5MINP PRN SL 01/08/25 09:15 Morphine Sulfate 2 mg Q30M PRN IV 01/08/25 09:15 Patient Own Medication 81 mg DAILY PO 01/08/25 10:00 UNV Patient Own Medication 25 mg BID PO 01/08/25 10:00 UNV Patient Own Medication 2 puff DAILY IN 01/08/25 10:00 Albuterol 2.5 mg Q4HPRN PRN NEB 01/08/25 09:30 01/11/25 15:19 2.5 MG Ipratropium [place] 0.5 mg Q4HPRN PRN NEB 01/08/25 09:30 01/09/25 15:44 0.5 MG Glipizide 5 mg DAILY PO 01/08/25 10:00 01/13/25 08:55 5 MG Patient Own Medication 2 puff BID PO 01/08/25 10:00 01/13/25 08:50 2 PUFF Aspirin 81 mg DAILY PO 01/08/25 10:00 01/13/25 08:55 81 MG Hydroxyzine Pamoate 25 mg BID PO 01/08/25 10:00 01/13/25 08:55 25 MG Azithromycin 250 ml @ 125 mls/hr DAILY IV 01/09/25 10:00 UNV Ceftriaxone Sodium 50 ml @ 100 mls/hr DAILY@09 IV 01/09/25 09:00 01/13/25 08:47 100 MLS/HR Methylprednisolone Sodium Succinate 40 mg BID IV 01/08/25 22:00 01/13/25 08:48 40 MG Doxycycline Hyclate 100 ml @ 50 mls/hr Q12H IV 01/09/25 13:00 01/13/25 00:49 50 MLS/HR Albuterol 2.5 mg Q6HWA [facility] 01/09/25 18:00 01/13/25 11:27 2.5 MG Ipratropium [place] 0.5 mg Q6HWA [facility] 01/09/25 18:00 01/13/25 11:27 0.5 MG Prochlorperazine Edisylate 10 mg Q4HPRN PRN IV 01/12/25 01:00 01/12/25 21:34 10 MG Hydralazine HCl 10 mg Q4HPRN PRN IV 01/12/25 01:00 01/12/25 01:26 10 MG Prochlorperazine Edisylate 10 mg Q4HPRN PRN IV 01/12/25 01:00 UNV Laboratory Results Laboratory Tests 01/09/25 06:22 Urinalysis Test 01/08/25 07:52 Urine Color Light-yellow (Yellow) Urine Clarity Clear (Clear) Urine pH 5.5 (5.0-9.0) Urine Specific [place] 1.023 (1.001-1.035) Urine Protein 1+ (Negative) H Urine Ketones Negative (Negative) Urine Blood Negative /uL (Negative) Urine Nitrite Negative (Negative) Urine Bilirubin Negative (Negative) Urine Urobilinogen Normal mg/dL (Negative) Urine Leukocyte Esterase Negative /uL (Negative) Urine RBC 1 /hpf (0 - 4) Urine Microscopic WBC 2 /HPF (0-5) Urine Squamous Epithelial Cells Few /hpf (<5) Urine Bacteria None seen /hpf (None Seen) Urine Hyaline Casts Few /lpf (0 - 2) Urine Mucus Few (None Seen) Urine Glucose 1+ mg/dL (Normal) H Microbiology Microbiology Date/Time Source Procedure Growth Status 01/09/25 16:12 Nose MRSA Screen - Final Complete Labs and/or images reviewed: Labs reviewed by me, Image(s) reviewed by me Assessment/Plan Assessment/Plan Acute on chronic hypoxic respiratory failure: Oxygen by nasal cannula Acute COPD exacerbation: Albuterol Atrovent Solu-Medrol Home oxygen use Bilateral community-acquired pneumonia: Rocephin doxycycline History of COVID pneumonia: Tiara Test negative Rapid flu test negative Sepsis likely due to pneumonia Acute respiratory acidosis without compensation Pulmonary hypertension Chronic current cocaine abuse: Counseling Time spent 50 minutes Advanced care planning time 20 minutes Patient is full code Frequent visits Lives at home with the family Frequent admissions 4 times in 2024 Casey Moore [phone] at bedside, is also the caregiver Plan discussed with: Patient Date of Service: Jan 13, 2025 Billing Provider: NEHEMIAS GUILLEN MD Common Visit Codes: [id number] INP/OBS CARE(HIGH) NEHEMIAS GUILLEN MD Jan 13, 2025 12:20
--- NOTE | 2025-01-13 12:23 | DVHDS2 ---
Discharge Summary Date of Admission Jan 08, 2025 at 09:10 Date of Discharge: Jan 13, 2025 Admitting Diagnosis Shortness of breath Wounds: None Labs/Diagnostic Data: Laboratory Results Test 01/13/25 08:54 01/09/25 15:24 01/09/25 06:22 01/08/25 19:35 POC Glucose 385 mg/dl (70-106) Influenza Type A Antigen Negative (Negative) Influenza Type B Antigen Negative (Negative) SARS-CoV-2 Antigen (Rapid) Negative (NEGATIVE) White Blood Count 11.0 10^3/uL (4.4-10.8) Red Blood Count 4.74 10^6/uL (4.0-5.20) Hemoglobin 14.3 g/dL (12.2-16.2) Hematocrit 43.5 % (36.0-46.0) Mean Corpuscular Volume 91.7 fL (80.0-100.0) Mean Corpuscular Hemoglobin 30.2 pg (28.0-32.0) Mean Corpuscular Hemoglobin Concent 32.9 g/dL (32.0-36.0) Red Cell Distribution Width 14.1 % (11.8-14.3) Platelet Count 236 10^3/uL (140-450) Mean Platelet Volume 8.3 fL (6.9-10.8) Neutrophils (%) (Auto) 89.4 % (37.0-80.0) Lymphocytes (%) (Auto) 6.2 % (10.0-50.0) Monocytes (%) (Auto) 4.0 % (0.0-12.0) Eosinophils (%) (Auto) 0.0 % (0.0-7.0) Basophils (%) (Auto) 0.4 % (0.0-2.0) Neutrophils # (Auto) 9.8 10 ^3/uL (1.6-8.6) Lymphocytes # (Auto) 0.7 10 ^3/uL (0.4-5.4) Monocytes # (Auto) 0.4 10 ^3/uL (0-1.3) Eosinophils # (Auto) 0 10 ^3/uL (0-0.8) Basophils # (Auto) 0 10 ^3/uL (0-0.2) Nucleated Red Blood Cells 0.1 % Sodium Level 142 mmol/L (136-145) Potassium Level 4.7 mmol/L (3.5-5.1) Chloride Level 101 mmol/L (98-107) Carbon Dioxide Level 33 mmol/L (20-31) Anion Gap 8 (5-15) Blood Urea Nitrogen 19 mg/dL (9-23) Creatinine 0.72 mg/dL (0.550-1.02) Glomerular Filtration Rate Calc 91 mL/min (>90) BUN/Creatinine Ratio 26.4 (10.0-20.0) Serum Glucose 232 mg/dL (74-106) Calcium Level 10.3 mg/dL (8.7-10.4) Total Bilirubin 0.4 mg/dL (0.2-1.0) Aspartate Amino Transferase (AST) 10 U/L (<34) Alanine Aminotransferase (ALT) 18 U/L (7-40) Alkaline Phosphatase 65 U/L (46-116) Total Protein 6.3 g/dL (5.7-8.2) Albumin 4.3 g/dL (3.2-4.8) Troponin I High Sensitivity 24 ng/L (</=34) Test 01/08/25 13:35 01/08/25 07:52 01/08/25 07:45 01/08/25 05:13 Blood Gas Specimen Type Arterial Blood Gas Sample Site Left radial Blood Gas Patient Temperature 37.0 Arterial Blood Date Drawn [id number] Arterial Blood pH 7.401 (7.350-7.450) Arterial Blood Partial Pressure CO2 50.2 mmHg (32.0-45.0) Arterial Blood Partial Pressure O2 82.5 mmHg (83.0-108.0) Arterial Blood HCO3 30.5 mmol/L (21.0-28.0) Arterial Blood Oxygen Saturation 96.3 % (94.0-98.0) Arterial Blood Base Excess 4.6 mmol/L (-2.0-3.0) Arterial Blood Oxyhemoglobin 94.5 % (94.0-98.0) Arterial Blood Carboxyhemoglobin 1.4 % (0.5-1.5) Arterial Blood Methemoglobin 0.5 % (0.0-1.5) Ga Test Yes Blood Gas Total Hemoglobin 14.30 g/dL (12.0-16.0) Blood Gas Set Respiration Rate 12.0 Blood Gas Modality Mask - bipap FiO2 % 30.0 Blood Gas EPAP 5 Blood Gas IPAP 12 Urine Color Light-yellow (Yellow) Urine Clarity Clear (Clear) Urine pH 5.5 (5.0-9.0) Urine Specific Jones 1.023 (1.001-1.035) Urine Protein 1+ (Negative) Urine Ketones Negative (Negative) Urine Blood Negative /uL (Negative) Urine Nitrite Negative (Negative) Urine Bilirubin Negative (Negative) Urine Urobilinogen Normal mg/dL (Negative) Urine Leukocyte Esterase Negative /uL (Negative) Urine RBC 1 /hpf (0 - 4) Urine Microscopic WBC 2 /HPF (0-5) Urine Squamous Epithelial Cells Few /hpf (<5) Urine Bacteria None seen /hpf (None Seen) Urine Hyaline Casts Few /lpf (0 - 2) Urine Mucus Few (None Seen) Urine Glucose 1+ mg/dL (Normal) Urine Opiates Screen Neg (NEGATIVE) Urine Fentanyl Screen Neg (NEGATIVE) Urine Barbiturates Screen Neg (NEGATIVE) Urine Phencyclidine Screen Neg (NEGATIVE) Urine Amphetamines Screen Neg (NEGATIVE) Urine Benzodiazepines Screen Neg (NEGATIVE) Urine Cocaine Screen Pos (NEGATIVE) Urine Cannabinoids Screen Neg (NEGATIVE) Blood Gas Critical Value Read Back Yes Blood Gas Notified Whom gallo Barron np Blood Gas Notified Time [id number] Blood Gas Notified By Marine Engine Machinist josette welch B-Type Natriuretic Peptide 146.70 pg/mL (0-100) Other Laboratory Tests 01/09/25 06:22 Brief Hx & Hospital Course: Female with a history of COPD pulmonary hypertension chronic current cocaine abuser use of home oxygen came in complaining of shortness of breaths found to have acute COPD exacerbation treated with albuterol Atrovent med nebs and Solu- Medrol possible community-acquired pneumonia treated with Rocephin and doxycycline Tiara test negative flu test negative patient has significantly improved and she is currently on 3 L of oxygen which is her usual requirement. Discharged home on azithromycin and prednisone tablets. She will follow up with the primary Dr. at bedside at the time of discharge. Consults/Reason for consult None Operations or Procedures None Condition at Discharge: Fair Final Diagnosis/Problems List Acute on chronic hypoxic respiratory failure: Oxygen by nasal cannula Acute COPD exacerbation: Albuterol Atrovent Solu-Medrol Bilateral community-acquired pneumonia: Rocephin doxycycline History of COVID pneumonia: Tiara Test negative Rapid flu test negative Sepsis likely due to pneumonia Acute respiratory acidosis without compensation Pulmonary hypertension Chronic current cocaine abuse: Counseling Discharge Disposition: Home Discharge Instruct/Medications Diet: Cardiac 2g Na,low cholest Activity: Light activity Follow Up/Referral: Follow up with the primary Resumbren all previous home medication Medications: Azithromycin Prednisone Transmitted to pharmacy 39 (Time taken for discharge summary 39 minutes) Discharge Statement: "Patient was advised to return to the ER or call 911 if any headaches, dizziness, shortness of breath, chest pain, abdominal pain, bleeding, fevers, or worsening of medical condition. Patient was counseled about treatment plan, medications, possible side effects, patientverbalized understanding. All questions were answered to the best of my ability. This discharge took greater then 30 minutes in planning, reviewing documentation, counseling the patient, and discussing with other team members." ASSESSMENT ASSESSMENT Hospital Course Improved Assessment Acute on chronic hypoxic respiratory failure: Oxygen by nasal cannula Acute COPD exacerbation: Albuterol Atrovent Solu-Medrol Bilateral community-acquired pneumonia: Rocephin doxycycline History of COVID pneumonia: Tiara Test negative Rapid flu test negative Sepsis likely due to pneumonia Acute respiratory acidosis without compensation Pulmonary hypertension Chronic current cocaine abuse: Counseling Date of Service: Jan 13, 2025 Billing Provider: NEHEMIAS GUILLEN MD Common Visit Codes: 11452-IAY/OBS DISCH DAY >30min NEHEMIAS GUILLEN MD Jan 13, 2025 12:23
== END 2025-01-13 15:00 | disposition home or self-care (01) | DRG 871 ==
LOC: ER 05:10 → OVERFLOW 09:10 → TELE-WESTW 22:00
PROVIDERS: ADMIT Family Medicine; ATTEND Family Medicine
PROC: 5A09357 Assistance with Respiratory Ventilation, Less than 24 Consecutive Hours, Continuous Positive Airway Pressure (ICD-10-PCS; principal; 2025-01-08)
DX: A41.9 Sepsis, unspecified organism (principal); J18.9 Pneumonia, unspecified organism; J96.22 Acute and chronic respiratory failure with hypercapnia; J96.21 Acute and chronic respiratory failure with hypoxia; J44.1 Chronic obstructive pulmonary disease with (acute) exacerbation; J44.0 Chronic obstructive pulmonary disease with (acute) lower respiratory infection; Z20.822 Contact with and (suspected) exposure to COVID-19; E11.65 Type 2 diabetes mellitus with hyperglycemia; F41.9 Anxiety disorder, unspecified; F17.210 Nicotine dependence, cigarettes, uncomplicated; F14.10 Cocaine abuse, uncomplicated; Z88.1 Allergy status to other antibiotic agents; Z87.01 Personal history of pneumonia (recurrent); Z86.16 Personal history of COVID-19; Z71.51 Drug abuse counseling and surveillance of drug abuser; Z79.899 Other long term (current) drug therapy
CPT/HCPCS: 36415; 36600; 71045; 80048; 80053; 80307; 81001; 82805; 82962; 83880; 84484; 85025; 87081; 87426; 87804; 93005; 94640; 94660; 96365; 96375; 99291; G0378; J2405

== ENCOUNTER 2025-02-26 17:29 | Emergency (ER) | payer OTHER, MEDICAID ==
[~2025-02-26 17:29] MED LIST changes: +AZIT500T66 PO; -DEX4T PO; +FLUT1AER3 PO; +GLIP5TAB21 PO; -LEVO750T40 PO; +PRED20TA2 PO
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
== END 2025-02-26 17:40 ==
LOC: EDBD 17:29 → ER 17:29
DX: I46.9 Cardiac arrest, cause unspecified (principal); F41.9 Anxiety disorder, unspecified; F17.210 Nicotine dependence, cigarettes, uncomplicated; J44.89 Other specified chronic obstructive pulmonary disease; Z79.82 Long term (current) use of aspirin; Z79.84 Long term (current) use of oral hypoglycemic drugs; Z86.73 Personal history of transient ischemic attack (TIA), and cerebral infarction without residual deficits; Z87.440 Personal history of urinary (tract) infections; Z88.2 Allergy status to sulfonamides
CPT/HCPCS: 31500; 92950